=== PATIENT | female | born 1975 | race Two or more races ===

== ENCOUNTER 2024-01-12 16:19 | Emergency (ER) | payer OTHER ==
[~2024-01-12] VITALS: Ht 165.1 cm; Wt 127.2 kg
[2024-01-12 16:40] VITALS: PULSE 84; PULSE 86; RESP 16; RESP 25; O2SAT 97
[2024-01-12 18:19] LABS: Basophils # (auto) 0.1 10 ^3/uL (0-0.2); Basophils % (auto) 1.2 % (0.0-2.0); Eosinophils # (auto) 0.5 10 ^3/uL (0-0.8); Eosinophils % (auto) 5.1 % (0.0-7.0); Hematocrit 28.5 % (36.0-46.0); Hemoglobin 9.7 g/dL (12.2-16.2); Lymphocytes # (auto) 1.5 10 ^3/uL (0.4-5.4); Lymphocytes % (auto) 16.7 % (10.0-50.0); Mean Corpuscular Hemoglobin 31.3 pg (28.0-32.0); Mean Corpuscular Hgb Conc. 33.9 g/dL (32.0-36.0); Mean Corpuscular Volume 92.5 fL (80.0-100.0); Monocytes # (auto) 0.4 10 ^3/uL (0-1.3); Neutrophils # (auto) 6.4 10 ^3/uL (1.6-8.6); Nucleated Red Blood Cells % 0.1 %; Platelet Count (auto) 393 10^3/uL (140-450); Red Blood Cells 3.08 10^6/uL (4.0-5.20); Red Cell Distribution Width 14.7 % (11.8-14.3); White Blood Cell 8.9 10^3/uL (4.4-10.8)
[2024-01-12 18:36] LABS: Alanine Aminotransferase 14 U/L (7-40); Albumin 3.8 g/dL (3.2-4.8); Alkaline Phosphatase 70 U/L (46-116); Anion Gap 3 (5-15); Aspartate Aminotransferase 15 U/L (13-40); BUN/Creatinine Ratio 21.6 (10.0-20.0); Bilirubin, Total 0.2 mg/dL (0.2-1.0); Blood Urea Nitrogen 27 mg/dL (9-23); CRP High Sensitivity 0.67 mg/dL (<1.0); Calcium 9.6 mg/dL (8.7-10.4); Carbon Dioxide 32 mmol/L (20-30); Chloride 107 mmol/L (98-107); Glucose 157 mg/dL (74-106); Potassium 4.8 mmol/L (3.5-5.1); Sodium 142 mmol/L (136-145)
[2024-01-12] MEDS: MORPHINE SULFATE 4 MG/ML SYR/VIAL IV ONE (18:59)
[2024-01-12] MEDS: ONDANSETRON HCL 4 MG/2 ML VIAL IV ONE ×2 (18:59→23:47)
[2024-01-12 19:00] LABS: Erythrocyte Sedimentation Rate 111 mm/hr (0-20)
[2024-01-12] MEDS: SODIUM CHLORIDE 0.9% 1,000 ML IV ONE (19:06)
[2024-01-12] MEDS: HYDROmorphone HCL 2 MG/ML VL/or syr IV ONE ×2 (19:08→23:50)
[2024-01-12] MEDS ORDERED: IOHEXOL 300 MG/ML 100ML BOTTLE IJ ONE (19:13)
[2024-01-12 19:30] VITALS: PULSE 78; RESP 12; O2SAT 96
[2024-01-12 23:24] LABS: Urine Bacteria None Seen /hpf (None Seen)
[2024-01-12 23:37] LABS: Urine Blood Negative /uL (Negative); Urine Clarity Clear (Clear); Urine Color Light-Yellow (Yellow); Urine Protein, UAD 2+ (Negative); Urine Specific Gravity 1.017 (1.001-1.035); Urine Urobilinogen Normal (Negative); Urine WBC 3 /hpf (0 - 5); Urine pH 6.5 (5.0-9.0)
[2024-01-13] MEDS ORDERED: HYDR-4798 PO (01:16)
[2024-01-13 03:00] VITALS: TEMP 98.1
[2024-01-13] MEDS: ONDANSETRON HCL 4 MG/2 ML VIAL IV ONE (05:45)
[2024-01-13] MEDS: HYDROmorphone HCL 2 MG/ML VL/or syr IV ONE (05:45)
[2024-01-13 06:00] VITALS: O2SAT 98
[2024-01-13 06:15] VITALS: BP 118/70; PULSE 82; RESP 14
== END 2024-01-13 08:25 | disposition home or self-care (01) ==
LOC: EDBD 16:19 → ER 16:19
DX: R53.1 Weakness (principal); R06.02 Shortness of breath; I11.0 Hypertensive heart disease with heart failure; I50.9 Heart failure, unspecified; E78.5 Hyperlipidemia, unspecified; Z85.9 Personal history of malignant neoplasm, unspecified; Z98.890 Other specified postprocedural states; Z88.8 Allergy status to other drugs, medicaments and biological substances
CPT/HCPCS: 36415; 71045; 74177; 80053; 81001; 83605; 83880; 84484; 85025; 85652; 86141; 96361; 96374; 96375; 96376; 99285; J1170; J2270; J2405; J7030; Q9967

== ENCOUNTER 2024-02-22 16:24 | Emergency (ER) | payer OTHER ==
[~2024-02-22] VITALS: Ht 157.5 cm; Wt 90.9 kg
[~2024-02-22 16:24] MED LIST: HYDR-4798 PO
[2024-02-22 16:46] VITALS: PULSE 90; RESP 14; O2SAT 98
[2024-02-22] MEDS: InsuLIN REG 1unit/0.01ml Soln (100units/ml) IV ONE (16:57)
[2024-02-22 17:03] LABS: Base Excess -4.6 mmol/L (-2.0-3.0)
[2024-02-22 17:24] LABS: Basophils # (auto) 0.1 10 ^3/uL (0-0.2); Basophils % (auto) 1.3 % (0.0-2.0); Eosinophils # (auto) 0.3 10 ^3/uL (0-0.8); Eosinophils % (auto) 4.9 % (0.0-7.0); Hematocrit 27.6 % (36.0-46.0); Hemoglobin 9.3 g/dL (12.2-16.2); Lymphocytes # (auto) 1.2 10 ^3/uL (0.4-5.4); Lymphocytes % (auto) 17.6 % (10.0-50.0); Mean Corpuscular Hemoglobin 30.8 pg (28.0-32.0); Mean Corpuscular Hgb Conc. 33.7 g/dL (32.0-36.0); Mean Corpuscular Volume 91.5 fL (80.0-100.0); Monocytes # (auto) 0.6 10 ^3/uL (0-1.3); Monocytes % (auto) 8.9 % (0.0-12.0); Neutrophils # (auto) 4.4 10 ^3/uL (1.6-8.6); Neutrophils % (auto) 67.3 % (37.0-80.0); Nucleated Red Blood Cells % 0.1 %; Platelet Count (auto) 273 10^3/uL (140-450); Red Blood Cells 3.01 10^6/uL (4.0-5.20); Red Cell Distribution Width 14.2 % (11.8-14.3); White Blood Cell 6.6 10^3/uL (4.4-10.8)
[2024-02-22 17:45] LABS: Alanine Aminotransferase 13 U/L (7-40); Albumin 3.8 g/dL (3.2-4.8); Alkaline Phosphatase 97 U/L (46-116); Anion Gap 8 (5-15); Aspartate Aminotransferase 8 U/L (13-40); Blood Urea Nitrogen 50 mg/dL (9-23); Calcium 9.3 mg/dL (8.7-10.4); Carbon Dioxide 25 mmol/L (20-31); Chloride 97 mmol/L (98-107); Potassium 4.7 mmol/L (3.5-5.1); Sodium 130 mmol/L (136-145)
[2024-02-22 17:46] LABS: Bilirubin, Total 0.3 mg/dL (0.2-1.0); Total Protein 6.8 g/dL (5.7-8.2)
[2024-02-22 18:36] LABS: Glucose 602 mg/dL (74-106)
[2024-02-22 19:50] VITALS: O2SAT 98
[2024-02-22] MEDS ORDERED: ACCU-CHEK COMFORT CURVE STRIP VI ONE (20:45)
[2024-02-22] MEDS ORDERED: DEXTROSE (50%) 50ML SYRG IV ONE (20:45)
[2024-02-22] MEDS ORDERED: InsuLIN REG 1unit/0.01ml Soln (100units/ml) SC ONE (20:45)
[2024-02-22] MEDS ORDERED: DEXTROSE (50%) 50ML SYRG IV PRN (20:45)
[2024-02-22] MEDS: InsuLIN REG 1unit/0.01ml Soln (100units/ml) SC SCH (21:37)
[2024-02-22] MEDS: ACCU-CHEK COMFORT CURVE STRIP VI SCH (21:39)
[2024-02-22] MEDS: FUROSEMIDE 40 MG/4 ML VIAL IV ONE (22:39)
[2024-02-22] MEDS: OXYCODONE W/ ACETAMINOPHEN 5/325MG TABLET PO ONE (22:40)
[2024-02-22] MEDS: SODIUM CHLORIDE 0.9% 1,000 ML IV ONE (23:30)
[2024-02-22] MEDS: ALBUTEROL SULF 2.5 MG/0.5ML(0.5%) NEB SOLN NEB ONE (23:46)
[2024-02-23 00:07] LABS: Chloride 99 mmol/L (98-107); Potassium 4.1 mmol/L (3.5-5.1); Sodium 132 mmol/L (136-145)
[2024-02-23 00:08] LABS: Anion Gap 11 (5-15); Calcium 9.3 mg/dL (8.7-10.4); Carbon Dioxide 22 mmol/L (20-31)
[2024-02-23 00:13] LABS: BUN/Creatinine Ratio 19.6 (10.0-20.0)
[2024-02-23 00:15] LABS: Blood Urea Nitrogen 40 mg/dL (9-23)
[2024-02-23 00:17] LABS: Glucose 433 mg/dL (74-106)
[2024-02-23] MEDS: InsuLIN REG 1unit/0.01ml Soln (100units/ml) SC SCH (00:25)
[2024-02-23] MEDS: ACCU-CHEK COMFORT CURVE STRIP VI SCH (00:28)
[2024-02-23 00:46] VITALS: BP 136/58; PULSE 89; RESP 20; TEMP 98.1; O2SAT 96
== END 2024-02-23 01:14 | disposition short-term general hospital (02) ==
LOC: EDSEX 16:24 → EDBD 16:24 → ER 16:26
DX: E11.65 Type 2 diabetes mellitus with hyperglycemia (principal); R10.2 Pelvic and perineal pain; R07.89 Other chest pain; I13.0 Hypertensive heart and chronic kidney disease with heart failure and stage 1 through stage 4 chronic kidney disease, or unspecified chronic kidney disease; E11.22 Type 2 diabetes mellitus with diabetic chronic kidney disease; N18.9 Chronic kidney disease, unspecified; I50.89 Other heart failure; E78.5 Hyperlipidemia, unspecified; I82.403 Acute embolism and thrombosis of unspecified deep veins of lower extremity, bilateral; Z79.4 Long term (current) use of insulin; Z85.42 Personal history of malignant neoplasm of other parts of uterus; Z87.891 Personal history of nicotine dependence; Z88.5 Allergy status to narcotic agent; Z90.710 Acquired absence of both cervix and uterus; Z91.148 Patient's other noncompliance with medication regimen for other reason; Z95.1 Presence of aortocoronary bypass graft
CPT/HCPCS: 36415; 36600; 71045; 80048; 80053; 82010; 82805; 83880; 84484; 84702; 85025; 93005; 93970; 94640; 96361; 96372; 96374; 96375; 99291; J1815; J1940; J7030

== ENCOUNTER 2024-06-14 04:26 | Inpatient (IN) | payer OTHER ==
[2024-06-14] VITALS (38 sets, daily range): BP systolic 90–154; BP diastolic 38–77; PULSE 75–99; RESP 11–25; TEMP 96.3–99.5; O2SAT 94–100
[~2024-06-14] VITALS: Ht 162.6 cm; Wt 118.0 kg
--- NOTE | 2024-06-14 04:39 | ED.PDOC ---
History of Present Illness HPI Comments 49 year old female brought in by EMS presents to the ED with a chief complaint of generalized weakness onset yesterday. Per EMS, patient's family member was woken up by the patient's scream, was found sitting on the ground. Patient states she tried to go the to the restroom when she began experiencing dizziness and generalized weakness, was not able to hold herself up and sat on the floor. Upon ED arrival patient states she is not able to feel her feet. Upon ED patient was hypotensive 170, HR 90, O2 sat 98% on RA. PMHx CHF, MD, CVA, HTN, DM, cancer, HLD. Denies head injury, LOC, chest pain, shortness of breath, abdominal pain, dysuria, hematuria. No other symptoms or modifying factors present at this time. Time Seen by MD: 04:28 Primary Care Provider: UNKNOWN NAME Reviewed Notes: Medications, Allergies Allergies: Coded Allergies: Diphenhydramine (Verified Allergy, Unknown, 01/12/24) Morphine (Verified Allergy, Unknown, 01/12/24) Home Meds Active Scripts Hydrocodone-Acetaminophen (Hydrocodone Bitartrate/AC 10-325 mg) 1 Tab Tab, 1 TAB PO Q6HPRN PRN, #20 TAB Prov:LANECRISTI CARDONA PAC 01/13/24 Information Source: Patient, Emergency Med Personnel Mode of Arrival: EMS Severity: Moderate Timing: Days Duration: Since onset Prehospital treatment: None Past Medical History PAST MEDICAL HISTORY: Cancer, CHF, CVA, DM, High Lipids, HTN, MD, Thyroid Surgical History: CABG, Hysterectomy [employer] History: No Pertinent [employer] History Family History Family History: Reviewed,noncontributory to illness, No family hx of Cancer, No family hx of DM, No family hx of Heart leida, No family hx of HTN, No family hx ofKidney leida, No family hx of Liver leida, No family hx of Lung leida, No family hx of Stroke Social History Smoker: Non-Smoker Alcohol: Denies ETOH Use Drugs: Denies Drug Use Lives In: Home Constitutional: reports: weakness; denies: chills, diaphoresis, fatigue, fever, malaise, sweats, others EENTM: denies: blurred vision, double vision, ear bleeding, ear discharge, ear drainage, ear pain, ear ringing, eye pain, eye redness, hearing loss, mouth pain, mouth swelling, nasal discharge, nose bleeding, nose congestion, nose pain, photophobia, tearing, throat pain, throat swelling, voice changes, others Respiratory: denies: cough, hemoptysis, orthopnea, SOB at rest, shortness of breath, SOB with excertion, stridor, wheezing, others Cardiovascular: denies: chest pain, dizzy spells, diaphoresis, Dyspnea on exertion, edema, irregular heart beat, left arm pain, lightheadedness, palpitations, PND, syncope, others Gastrointestinal: reports: diarrhea, nausea, vomiting; denies: abdomen dist ended, abdominal pain, blood streaked bowels, constipated, dysphagia, difficulty swallowing, hematemesis, melena, poor appetite, poor fluid intake, rectal bleeding, rectal pain, others Genitourinary: denies: abnormal vagina bleeding, burning, dyspareunia, dysuria, flank pain, frequency, hematuria, incontinence, pain, , vagina discharge, urgency, others Neurological: reports: dizziness, weakness; denies: fainting, headache, left sided numbness, left sided weakness, numbness, paresthesia, pre-existing deficit, right sided numbness, right sided weakness, seizure, speech problems, tingling, tremors, others Musculoskeletal: denies: back pain, gout, joint pain, joint swelling, muscle pain, muscle stiffness, neck pain, others Integumetry: denies: bruises, change in color, change in hair/nails, dryness, laceration, lesions, lumps, rash, wounds, others Allergic/Immunocompromised: denies: Difficulty Healing, Frequent Infections, Hives, Itching, others Hematologic/Lymphatic: denies: anemia, blood clots, easy bleeding, easy bruising, swollen glands, others Endocrine: denies: excessive hunger, excessive sweating, excessive thirst, excessive urination, flushing, intolerance to cold, intolerance to heat, unexplained weight gain, unexplained weight loss, others Psychiatric: denies: anxiety, bipolar disorder, depression, hopeless, panic disorder, schizophrenia, sleepless, suicidal, others All Other Systems: Reviewed and Negative Physical Exam General Appearance: Moderate Distress, Other (chronically ill appearing ) HEENT: Normal ENT Inspection, Pharynx Normal, TMs Normal Neck: Full Range of Motion, Non-Tender, Normal, Normal Inspection Respiratory: Chest Non-Tender, Lungs Clear, No Accessory Muscle Use, No Respiratory Distress, Normal Breath Sounds Cardiovascular: No Edema, No JVD, No Murmur, No Gallop, Normal Peripheral Pulses, Regular Rate/Rhythm Breast Exam: Deferred Gastrointestinal: No Organomegaly, Non Tender, No Pulsatile Mass, Normal Bowel Sounds, Soft Genitalia: Deferred Pelvic: Deferred Rectal: Deferred Extremities: No calf tenderness, Normal capillary refill, Normal inspection, Normal range of motion, Non-tender, No pedal edema Musculoskeletal : Apperance: Normal Neurologic: Alert, java application developer II-XII nml as Tested, No Motor Deficits, Normal Affect, Normal Mood, No Sensory Deficits Cerebellar Function: Normal Reflexes: Normal Skin: Dry, Normal Color, Warm Lymphatic: No Adenopathy Was a procedure done? Was a procedure done?: Yes Sedation Sedation?: No Sedation total time: Patient is currently sedated Central Line Recorder of insertion practice: Pre Parole Counseling Aide Occupation of gore inserter: Attending Physician Indication: Inability to obtain IV Room prepared for procedure: Yes Pre Parole Counseling Aide performed hand hygien: Yes Maximal sterile barrier precau: Mask/Eye shield, Sterile gown, Cap, Sterlie gloves, Large sterlie drape Skin Preparation: Chlorhexidine gluconate, Providine iodine Skin preparation completely dr: Yes Insertion site: Right, Femoral Central line catheter type: [id number]-[id number]-yel dialysis Number of lumens: 3 Post Assessment: Proper placement Informed consent obtained: Yes Risks/benefits/alt described: Yes Intubation Indication: Airway Protection Prep: Preoxygenation Pretreated with: Other (Etomidate , Rocuromium ) Intubation size: cm (24) Informed consent obtained: Yes Risks/benefits/alt described: Yes Differential Dx Considerations may include: CVA, electrolyte abnormality, infectious etiology, metabolic disarray, hydration, sepsis X-Ray, Labs, Meds, VS Vital Signs Date Time Temp Pulse Resp B/P (MAP) Pulse Ox O2 Delivery O2 Flow Rate FiO2 06/14/24 04:40 86 06/14/24 04:29 85 06/14/24 04:26 98.1 80 18 98 Lab Test 06/14/24 04:59 Range/Units White Blood Count 13.1 H 4.4-10.8 10^3/uL Red Blood Count 3.56 L 4.0-5.20 10^6/uL Hemoglobin 10.6 L 12.2-16.2 g/dL Hematocrit 32.2 L 36.0-46.0 % Mean Corpuscular Volume 90.3 80.0-100.0 fL Mean Corpuscular Hemoglobin 29.8 28.0-32.0 pg Mean Corpuscular Hemoglobin Concent 33.0 32.0-36.0 g/dL Red Cell Distribution Width 13.2 11.8-14.3 % Platelet Count 361 140-450 10^3/uL Mean Platelet Volume 8.0 6.9-10.8 fL Neutrophils (%) (Auto) 75.6 37.0-80.0 % Lymphocytes (%) (Auto) 14.4 10.0-50.0 % Monocytes (%) (Auto) 7.0 0.0-12.0 % Eosinophils (%) (Auto) 2.1 0.0-7.0 % Basophils (%) (Auto) 0.9 0.0-2.0 % Neutrophils # (Auto) 9.9 H 1.6-8.6 10 ^3/uL Lymphocytes # (Auto) 1.9 0.4-5.4 10 ^3/uL Monocytes # (Auto) 0.9 0-1.3 10 ^3/uL Eosinophils # (Auto) 0.3 0-0.8 10 ^3/uL Basophils # (Auto) 0.1 0-0.2 10 ^3/uL Nucleated Red Blood Cells 0.1 % Sodium Level 134 L 136-145 mmol/L Potassium Level 3.6 3.5-5.1 mmol/L Chloride Level 98 98-107 mmol/L Carbon Dioxide Level 24 20-31 mmol/L Anion Gap 12 5-15 Blood Urea Nitrogen 24 H 9-23 mg/dL Creatinine 2.46 H 0.550-1.02 mg/dL Glomerular Filtration Rate Calc 23 >90 mL/min BUN/Creatinine Ratio 9.8 L 10.0-20.0 Serum Glucose 189 H 74-106 mg/dL Lactic Acid Level 4.1 *H 0.4-2.0 mmol/L Calcium Level 9.4 8.7-10.4 mg/dL Total Bilirubin < 0.2 L 0.2-1.0 mg/dL Aspartate Amino Transferase (AST) 13 13-40 U/L Alanine Aminotransferase (ALT) < 9 7-40 U/L Alkaline Phosphatase 97 46-116 U/L Troponin I High Sensitivity 7 </=34 ng/L B-Type Natriuretic Peptide 47.28 0-100 pg/mL Total Protein 7.0 5.7-8.2 g/dL Albumin 3.8 3.2-4.8 g/dL Lipase 124 H 12-53 U/L Plasma/Serum Blood Alcohol < 3.0 <10 mg/dL Current Medications Medications (Trade) Dose Ordered Sig/Yanna Route Start Time Stop Time Status Last Admin Sodium Chloride 1,000 ml @ 1,000 mls/hr Q1H ONCE IV 06/14/24 04:45 06/14/24 05:44 DC 06/14/24 05:14 Time of 1ST Reevaluation: 04:58 Reevaluation 1ST: Unchanged Patient Education/Counseling: Diagnosis, Treatment, Prognosis Family Education/Counseling: No Family Present Departure 1 Departure Time of Disposition: 05:58 (Patient presented altered and pain and hypotensive. Patient was empirically covered with IV fluids antibiotics was started on pressors. Patient's mental status began to decline patient was intubated emergently in central line placed. We will admit patient to the ICU for further workup and management.) Impression: Primary Impression: Metabolic encephalopathy Additional Impressions: Sepsis with metabolic encephalopathy Hypotension Qualified Codes: I95.9 - Hypotension, unspecified Disposition: ADMITTED INPATIENT Admit to: ICU Condition: Critical Critical Care Note Critical Care Time?: Yes Critical care comment: Metabolic encephalopathy Authorized and Performed by: Carlos Vicente MD Total critical care time: Approximately 39 minutes Due to a high probability of clinically significant, life threatening deterioration, the patient required my highest level of preparedness to intervene emergently and I personally spent this critical care time directly and personally managing the patient. This critical care time included obtaining a history; examining the patient; pulse oximetry; ordering and review of studies; arranging urgent treatment with development of a management plan; evaluation of patient's response to treatment; frequent reassessment; and, discussions with other providers. This critical care time was performed to assess and manage the high probability of imminent, life-threatening deterioration that could result in multi-organ failure. It was exclusive of separately billable procedures and treating other patients and teaching time. Please see my other sections and the rest of the note for further information on patient assessment and treatment. Stability Stability form required: No I personally scribed for CARLOS VICENTE MD ([email or web address]) on 06/14/24 at 04:39. Electronically submitted by Miriam Meade ([email or web address]). I personally scribed for CARLOS VICENTE MD ([email or web address]) on 06/14/24 at 04:41. Electronically submitted by Miriam Meade ([email or web address]). I personally scribed for CARLOS VICENTE MD ([email or web address]) on 06/14/24 at 05:44. Electronically submitted by Miriam Meade ([email or web address]). I personally scribed for CARLOS VICENTE MD ([email or web address]) on 06/14/24 at 05:46. Electronically submitted by Miriam Meade ([email or web address]). CARLOS VICENTE MD Jun 14, 2024 04:39
[2024-06-14] MEDS: ONDANSETRON HCL 4 MG/2 ML VIAL IV ONE (04:45)
[2024-06-14] MEDS: SODIUM CHLORIDE 0.9% 1,000 ML IV ONE ×3 (05:14→11:55)
[2024-06-14 05:17] LABS: Basophils # (auto) 0.1 10 ^3/uL (0-0.2); Basophils % (auto) 0.9 % (0.0-2.0); Eosinophils # (auto) 0.3 10 ^3/uL (0-0.8); Eosinophils % (auto) 2.1 % (0.0-7.0); Hematocrit 32.2 % (36.0-46.0); Hemoglobin 10.6 g/dL (12.2-16.2); Lymphocytes # (auto) 1.9 10 ^3/uL (0.4-5.4); Lymphocytes % (auto) 14.4 % (10.0-50.0); Mean Corpuscular Hemoglobin 29.8 pg (28.0-32.0); Mean Corpuscular Volume 90.3 fL (80.0-100.0); Monocytes # (auto) 0.9 10 ^3/uL (0-1.3); Neutrophils # (auto) 9.9 10 ^3/uL (1.6-8.6); Neutrophils % (auto) 75.6 % (37.0-80.0); Nucleated Red Blood Cells % 0.1 %; Platelet Count (auto) 361 10^3/uL (140-450); Red Blood Cells 3.56 10^6/uL (4.0-5.20); Red Cell Distribution Width 13.2 % (11.8-14.3); White Blood Cell 13.1 10^3/uL (4.4-10.8)
[2024-06-14] MEDS: NOREPINEPHRINE 8 MG/250ML KIT 250 ML IV ONE (05:28)
[2024-06-14] MEDS: NOREPINEPHRINE 8 MG/250ML KIT 250 ML IV SCH ×2 (05:30→06:30)
[2024-06-14 05:33] LABS: Albumin 3.8 g/dL (3.2-4.8); Alkaline Phosphatase 97 U/L (46-116); Anion Gap 12 (5-15); BUN/Creatinine Ratio 9.8 (10.0-20.0); Calcium 9.4 mg/dL (8.7-10.4); Carbon Dioxide 24 mmol/L (20-31); Potassium 3.6 mmol/L (3.5-5.1)
[2024-06-14] MEDS: ROCURONIUM 10MG/ML 10ML VIAL IV ONE ×2 (05:34→05:38)
[2024-06-14] MEDS: ETOMIDATE (2MG/ML) 20ML VIAL IV ONE ×2 (05:34→05:37)
[2024-06-14] MEDS: PROPOFOL 100 ML IV ONE (05:34)
[2024-06-14 05:37] LABS: Alanine Aminotransferase < 9 U/L (7-40); Aspartate Aminotransferase 13 U/L (13-40); Bilirubin, Total < 0.2 mg/dL (0.2-1.0); Blood Urea Nitrogen 24 mg/dL (9-23); Chloride 98 mmol/L (98-107); Glucose 189 mg/dL (74-106); Lactic Acid w/Reflex 4.1 mmol/L (0.4-2.0); Lipase 124 U/L (12-53); Sodium 134 mmol/L (136-145)
[2024-06-14] MEDS: PROPOFOL 100 ML IV SCH (05:40)
[2024-06-14] MEDS ORDERED: PROPOFOL 100 ML IV SCH (05:45)
[2024-06-14 05:56] LABS: Blood Alcohol < 3.0 mg/dL (<10)
[2024-06-14 06:06] LABS: Urine Bacteria None Seen /hpf (None Seen)
[2024-06-14 06:14] LABS: Urine Blood 2+ /uL (Negative); Urine Clarity Ex.Turbid (Clear); Urine Color Colorless (Yellow); Urine Protein, UAD 2+ (Negative); Urine Specific Gravity 1.007 (1.001-1.035); Urine Squamous Epithelial Cell None Seen /hpf (<5); Urine Urobilinogen Normal (Negative); Urine WBC 1589 /HPF (0-5); Urine WBC Clumps PRESENT /hpf (None Seen)
--- NOTE | 2024-06-14 06:15 | DVH ---
EXAM: XR Chest, 1 View CLINICAL INDICATION: POST INTUBATION TECHNIQUE: Frontal view of the chest. COMPARISON: XY CHEST PORTABLE on DOS: 02/22/24, XY CHEST XRAY 1 VIEW on DOS: 01/12/24 FINDINGS: LUNGS AND PLEURAL SPACES: See below. HEART: Cardiomegaly with pulmonary congestion and edema. Superimposed pneumonia cannot be excluded. MEDIASTINUM: Unremarkable. Normal mediastinal contour. BONES/JOINTS: Unremarkable. No acute fracture. TUBES, LINES AND DEVICES: ETT placement with the distal tip 0.7 cm from the karen. Retraction by 1-2 cm may be beneficial. Right internal jugular central venous catheter tip in the superior vena ca va. Right-sided Mediport with the distal tip in the SVC. No pneumothorax. Enteric tube tip in the s tomach. OTHER FINDINGS: . . IMPRESSION: 1. ETT placement with the distal tip 0.7 cm from the karen. Retraction by 1-2 cm may be beneficial . 2. Cardiomegaly with pulmonary congestion and edema. Superimposed pneumonia cannot be excluded.
[2024-06-14 06:25] LABS: Amphetamine Screen, Urine Neg (NEGATIVE); Barbiturate Scree,Urine Neg (NEGATIVE); Benzodiazephine Screen, Urine Neg (NEGATIVE); Cannabinoid Screen, Urine Neg (NEGATIVE); Cocaine Screen, Urine Neg (NEGATIVE); Opiate Scree,Urine Neg (NEGATIVE)
[2024-06-14 06:26] LABS: Phencyclidine Screen, Urine Neg (NEGATIVE)
[2024-06-14] MEDS: fentaNYL Drip 2500mCg/250mlNS 250 ML IV SCH (06:43)
[2024-06-14] MEDS: VANCOMYCIN 1GM/250ML KIT 200 ML IV ONE (06:47)
[2024-06-14] MEDS: CEFEPIME 2GM/50ML NS 50 ML IV ONE (08:37)
[2024-06-14 09:23] LABS: Base Excess -3.2 mmol/L (-2.0-3.0)
--- NOTE | 2024-06-14 10:46 | DVH ---
EXAM: CT HEAD WITHOUT CONTRAST HISTORY: fall, hypotensive, altered COMPARISON: None TECHNIQUE: Axial images of the head were obtained and reformatted in coronal and sagittal planes. All CT scans at this medical facility are performed using dose modulation techniques as appropriate t o a performed exam including the following: Automated exposure control was utilized; adjustment of th e MA and/or KV according to patient size; and use of iterative reconstruction technique. CT Dose: CTDI volume is 67 mGy. Dose-length product is 1321 mGy*cm FINDINGS: There is no evidence of acute intracranial hemorrhage, mass, mass effect midline shift. There is no h ydrocephalus or extra-axial fluid collection. Hastings-white matter differentiation is maintained. The visualized paranasal sinuses and mastoid air cells are clear. The calvarium is intact. IMPRESSION: 1. No acute intracranial process. HS:Y
--- NOTE | 2024-06-14 10:52 | DVH ---
EXAM: CT CHST AB PEL WO CON-NO IV/ORAL History: pain, altered, intubated Comparison Study: None available at time of dictation. TECHNIQUE: Multidetector CT of the chest, abdomen and pelvis was performed from lower neck to pubic s ymphysis without the use of intravenous contrast. Axial, coronal and sagittal multiplanar reformats w ere performed by the technologist on a separate workstation. Radiation Dose Information: CT Dose: CTDI volume is 29.6 mGy. Dose-length product is 2055. mGy*cm FINDINGS: Support lines and tubes: Right central venous catheter terminates in the superior vena cava. The endo tracheal tube terminates above the karen. The enteric tube terminates in the stomach. Lower neck: Normal thyroid. Lungs: Bilateral lower lobe consolidation with air bronchograms. No pulmonary nodule or mass. Pleura: No pleural effusion or significant pneumothorax. Central airways: Patent. Heart/Vascular Structures: Normal heart size. Postsurgical changes in the heart. No pericardial effu dwayne. Normal caliber thoracic aorta and main pulmonary artery. Lymph Nodes: No adenopathy. Liver: The liver is normal in size. No intrahepatic biliary ductal dilatation. Gallbladder and Biliary Tree: Cholecystectomy. No dilatation of the common bile duct. Spleen: Unremarkable. Pancreas: Unremarkable. Adrenal Glands: Unremarkable. Kidneys: No renal calculi or hydronephrosis. Bladder: Ewing catheter in the decompressed urinary bladder.. Stomach and bowel: Stomach is unremarkable. No bowel wall thickening or dilatation. The appendix is v isualized and is normal. Peritoneum: No ascites or pneumoperitoneum. Lymphadenopathy: No enlarged lymph nodes. Vasculature: The visualized abdominal aorta is normal in size and caliber. Evaluation of the vascular structures is limited due to lack of intravenous contrast. Pelvic Organs: Unremarkable. Musculoskeletal: No acute osseous abnormality. Status post CABG. Soft tissues: Soft tissue stranding in the midline abdominal wall. IMPRESSION: 1. No acute traumatic injury in the chest, abdomen or pelvis. 2. Bilateral lower lobe consolidations which may reflect aspiration in the appropriate clinical setti ng. All CT scans at this medical facility are performed using dose modulation techniques as appropriate t o a performed exam including the following: Automated exposure control was utilized; adjustment of th e MA and/or KV according to patient size; and use of iterative reconstruction technique.
[2024-06-14] MEDS ORDERED: HYDROmorphone HCL 2 MG/ML VL/or syr IV PRN (11:15)
[2024-06-14] MEDS ORDERED: HYDROcodone-ACET 5/325MG TAB PO PRN (11:15)
[2024-06-14] MEDS ORDERED: DOCUSATE SOD 100 MG CAP PO PRN (11:15)
[2024-06-14] MEDS ORDERED: ONDANSETRON HCL 4 MG/2 ML VIAL IV PRN (11:15)
--- NOTE | 2024-06-14 11:24 | DVHHP2 ---
Admitting Diagnosis: Generalized weakness History of Present Illness 49 year old female brought in by EMS presents to the ED with a chief complaint of generalized weakness onset yesterday. Per EMS, patient's family member was woken up by the patient's scream, was found sitting on the ground. Patient states she tried to go the to the restroom when she began experiencing dizziness and generalized weakness, was not able to hold herself up and sat on the floor. Upon ED arrival patient states she is not able to feel her feet. Upon ED patient was hypotensive 170, HR 90, O2 sat 98% on RA. PMHx CHF, AK, CVA, HTN, DM, cancer, HLD. Denies head injury, LOC, chest pain, shortness of breath, abdominal pain, dysuria, hematuria. No other symptoms or modifying factors present at this time. PAST MEDICAL HISTORY: Cancer, CHF, CVA, DM, High Lipids, HTN, AK, Thyroid Surgical History: CABG, Hysterectomy DISPATCH COORDINATOR History: No Pertinent DISPATCH COORDINATOR History Family History: Reviewed,noncontributory to illness, No family hx of Cancer, No family hx of DM, No family hx of Heart leida, No family hx of HTN, No family hx ofKidney leida, No family hx of Liver leida, No family hx of Lung leida, No family hx of Stroke Social History Smoker: Non-Smoker Alcohol: Denies ETOH Use Drugs: Denies Drug Use Lives In: Home Allergies: Coded Allergies: Diphenhydramine (Verified Allergy, Unknown, 01/12/24) Morphine (Verified Allergy, Unknown, 01/12/24) Home Meds Active Scripts Hydrocodone-Acetaminophen (Hydrocodone Bitartrate/AC 10-325 mg) 1 Tab Tab, 1 TAB PO Q6HPRN PRN, #20 TAB Prov:CRISTI LANE PAC 01/13/24 Current Medications Current Medications Medications (Trade) Dose Ordered Sig/Yanna Route PRN Reason Start Time Stop Time Status Last Admin Propofol 100 ml @ 3.54 mls/hr Q24H IV 06/14/24 05:45 06/14/24 06:18 DC Norepinephrine Bitartrate 250 ml @ 3.75 mls/hr Q24H IV 06/14/24 06:15 06/14/24 05:30 Propofol 100 ml @ 3.54 mls/hr Q24H IV 06/14/24 06:15 06/14/24 08:30 Fentanyl Citrate 250 ml @ 2.5 mls/hr Q24H IV 06/14/24 06:15 06/14/24 06:43 Norepinephrine Bitartrate 250 ml @ 3.75 mls/hr Q24H IV 06/14/24 06:30 Docusate Sodium (Colace Capsule) 100 mg BIDPRN PRN PO FOR CONSTIPATION 06/14/24 11:15 UNV Acetaminophen (Tylenol Tablet) 650 mg Q6HP PRN PO PAIN SCALE 1-3 OR TEMP>100.4 06/14/24 11:15 UNV Acetaminophen/ Hydrocodone Bitart ([place] 5/325MG Tab) 1 tab Q4HP PRN PO MODERATE PAIN (4-6 PAIN SCALE) 06/14/24 11:15 UNV Hydromorphone HCl (Dilaudid Injection) 0.5 mg Q4HP PRN IV SEVERE PAIN (7-10 PAIN SCALE) 06/14/24 11:15 UNV Ondansetron HCl (Zofran) 4 mg Q4HP PRN IV NAUSEA / VOMITING 06/14/24 11:15 UNV Midazolam HCl 50 ml @ 1 mls/hr Q24H IV 06/14/24 11:30 UNV Cefepime HCl 50 ml @ 12.5 mls/hr BID IV 06/14/24 22:00 UNV Vancomycin HCl 0 ml @ 0 mls/hr UD IV 06/14/24 11:30 UNV Vital Signs Vital Signs Date Time Temp Pulse Resp B/P (MAP) Pulse Ox O2 Delivery O2 Flow Rate FiO2 06/14/24 11:09 96.3 84 18 113/55 100 50 96.3 06/14/24 07:30 Mechanical Ventilator+ 06/14/24 05:30 0 Physical Exam 49 years old woman, morbidly obese, lying in bed. Intubated and sedated HEENT-atraumatic normocephalic Heart-regular rate and rhythm Lungs mild crackles in lower lung [place] Abdomen soft nontender nondistended Musculoskeletal-pedal edema, no cyanosis Neuro-intubated and sedated Results Labs Test 06/14/24 10:06 06/14/24 08:54 06/14/24 07:51 06/14/24 06:49 Range/Units POC Glucose 242 H 70-106 mg/dl Blood Gas Specimen Type Arterial Blood Gas Sample Site Left radial Blood Gas Patient Temperature 37.0 Arterial Blood Date Drawn [id number] Arterial Blood pH 7.346 L 7.350-7.450 Arterial Blood Partial Pressure CO2 41.6 32.0-45.0 mmHg Arterial Blood Partial Pressure O2 434.7 *H 83.0-108.0 mmHg Arterial Blood HCO3 22.2 21.0-28.0 mmol/L Arterial Blood Oxygen Saturation 99.5 H 94.0-98.0 % Arterial Blood Base Excess -3.2 L -2.0-3.0 mmol/L Arterial Blood Oxyhemoglobin 98.6 H 94.0-98.0 % Arterial Blood Carboxyhemoglobin 0.3 L 0.5-1.5 % Arterial Blood Methemoglobin 0.6 0.0-1.5 % Stephane Test Modified Blood Gas Total Hemoglobin 10.70 L 12.0-16.0 g/dL Blood Gas Set Respiration Rate 18.0 Blood Gas Modality Vent - ac FiO2 % 100.0 Blood Gas Tidal Volume 500.0 Blood Gas PEEP or CPAP 5.0 Blood Gas Critical Value Read Back Yes Blood Gas Notified Whom Dr.seraj j Blood Gas Notified Time [id number] Blood Gas Notified By Roller Staker cheri jordan Troponin I High Sensitivity 17 </=34 ng/L Lactic Acid Level 2.3 *H 0.4-2.0 mmol/L Test 06/14/24 05:56 06/14/24 04:59 Range/Units Urine Color Colorless Yellow Urine Clarity Ex.turbid Clear Urine pH 6.0 5.0-9.0 Urine Specific [place] 1.007 1.001-1.035 Urine Protein 2+ H Negative Urine Ketones Negative Negative Urine Blood 2+ H Negative /uL Urine Nitrite Negative Negative Urine Bilirubin Negative Negative Urine Urobilinogen Normal Negative mg/dL Urine Leukocyte Esterase 3+ Negative /uL Urine RBC 10 0 - 4 /hpf Urine WBC Clumps Present None Seen /hpf Urine Microscopic WBC 1589 H 0-5 /HPF Urine Squamous Epithelial Cells None seen <5 /hpf Urine Bacteria None seen None Seen /hpf Urine Glucose 3+ H Normal mg/dL Urine Opiates Screen Neg NEGATIVE Urine Fentanyl Screen Neg NEGATIVE Urine Barbiturates Screen Neg NEGATIVE Urine Phencyclidine Screen Neg NEGATIVE Urine Amphetamines Screen Neg NEGATIVE Urine Benzodiazepines Screen Neg NEGATIVE Urine Cocaine Screen Neg NEGATIVE Urine Cannabinoids Screen Neg NEGATIVE White Blood Count 13.1 H 4.4-10.8 10^3/uL Red Blood Count 3.56 L 4.0-5.20 10^6/uL Hemoglobin 10.6 L 12.2-16.2 g/dL Hematocrit 32.2 L 36.0-46.0 % Mean Corpuscular Volume 90.3 80.0-100.0 fL Mean Corpuscular Hemoglobin 29.8 28.0-32.0 pg Mean Corpuscular Hemoglobin Concent 33.0 32.0-36.0 g/dL Red Cell Distribution Width 13.2 11.8-14.3 % Platelet Count 361 140-450 10^3/uL Mean Platelet Volume 8.0 6.9-10.8 fL Neutrophils (%) (Auto) 75.6 37.0-80.0 % Lymphocytes (%) (Auto) 14.4 10.0-50.0 % Monocytes (%) (Auto) 7.0 0.0-12.0 % Eosinophils (%) (Auto) 2.1 0.0-7.0 % Basophils (%) (Auto) 0.9 0.0-2.0 % Neutrophils # (Auto) 9.9 H 1.6-8.6 10 ^3/uL Lymphocytes # (Auto) 1.9 0.4-5.4 10 ^3/uL Monocytes # (Auto) 0.9 0-1.3 10 ^3/uL Eosinophils # (Auto) 0.3 0-0.8 10 ^3/uL Basophils # (Auto) 0.1 0-0.2 10 ^3/uL Nucleated Red Blood Cells 0.1 % Sodium Level 134 L 136-145 mmol/L Potassium Level 3.6 3.5-5.1 mmol/L Chloride Level 98 98-107 mmol/L Carbon Dioxide Level 24 20-31 mmol/L Anion Gap 12 5-15 Blood Urea Nitrogen 24 H 9-23 mg/dL Creatinine 2.46 H 0.550-1.02 mg/dL Glomerular Filtration Rate Calc 23 >90 mL/min BUN/Creatinine Ratio 9.8 L 10.0-20.0 Serum Glucose 189 H 74-106 mg/dL Calcium Level 9.4 8.7-10.4 mg/dL Total Bilirubin < 0.2 L 0.2-1.0 mg/dL Aspartate Amino Transferase (AST) 13 13-40 U/L Alanine Aminotransferase (ALT) < 9 7-40 U/L Alkaline Phosphatase 97 46-116 U/L B-Type Natriuretic Peptide 47.28 0-100 pg/mL Total Protein 7.0 5.7-8.2 g/dL Albumin 3.8 3.2-4.8 g/dL Lipase 124 H 12-53 U/L Beta HCG, Quantitative 1.4 L 1.5-4.2 mIU/mL Plasma/Serum Blood Alcohol < 3.0 <10 mg/dL Primary Diagnosis Septic shock shock likely due to bilateral lower lobe pneumonia and UTI acute hypoxic respiratory failure requiring intubation likely due to bilateral lower lobe pneumonia JERROD likely due to shock DKA Plan Patient is intubated and sedated Pulmonology consult for vent management Cefepime and vanco for broad-spectrum antibiotics cover UTI and bilateral pneumonia Check sputum culture, blood culture, trend lactic acid until normalize Ordered another L of NS for fluid resuscitation On levo map goal greater than 65 while septic Versed, propofol and fentanyl for sedation Nephrology consult for JERROD Check urine sodium, urine creatinine Insulin sliding scale aggressive Check A1c level Insert NG tube Nutrition consult for NG tube diet Full code Heparin for DVT prophylaxis PPI for GI prophylaxis while intubated NPO except meds. To insert for tube diet Plan discussed with: Patient Date of Service: Jun 14, 2024 Billing Provider: FARHAT STOKES MD Common Visit Codes: [id number] CARE 30-74 MIN, [id number] CARE-EACH +30MIN FARHAT STOKES MD Jun 14, 2024 11:24
[2024-06-14] MEDS ORDERED: DEXTROSE (50%) 50ML SYRG IV PRN (11:30)
[2024-06-14] MEDS ORDERED: VANCOMYCIN PER PHARMACY 0 MG IV SCH (11:30)
[2024-06-14] MEDS: PANTOPRAZOLE 40 MG/10 ML VIAL INJ IV SCH (11:56)
[2024-06-14] MEDS: MIDAZOLAM DRIP 50 mg/50mL 50 ML IV SCH (12:00)
[2024-06-14] MEDS: ACCU-CHEK COMFORT CURVE STRIP VI SCH (12:00)
[2024-06-14 12:06] LABS: Basophils # (auto) 0.1 10 ^3/uL (0-0.2); Basophils % (auto) 0.8 % (0.0-2.0); Eosinophils # (auto) 0.3 10 ^3/uL (0-0.8); Eosinophils % (auto) 1.6 % (0.0-7.0); Hematocrit 30.6 % (36.0-46.0); Hemoglobin 10.1 g/dL (12.2-16.2); Lymphocytes # (auto) 1.8 10 ^3/uL (0.4-5.4); Mean Corpuscular Hemoglobin 29.7 pg (28.0-32.0); Mean Corpuscular Volume 89.8 fL (80.0-100.0); Monocytes % (auto) 5.8 % (0.0-12.0); Neutrophils # (auto) 14.5 10 ^3/uL (1.6-8.6); Neutrophils % (auto) 81.8 % (37.0-80.0); Nucleated Red Blood Cells % 0.1 %; Platelet Count (auto) 366 10^3/uL (140-450); White Blood Cell 17.8 10^3/uL (4.4-10.8)
[2024-06-14 12:27] LABS: Alkaline Phosphatase 93 U/L (46-116); Anion Gap 10 (5-15); Aspartate Aminotransferase 13 U/L (13-40); BUN/Creatinine Ratio 11.4 (10.0-20.0); Calcium 8.9 mg/dL (8.7-10.4); Carbon Dioxide 23 mmol/L (20-31); Chloride 100 mmol/L (98-107); Potassium 3.8 mmol/L (3.5-5.1)
[2024-06-14 12:28] LABS: Albumin 3.4 g/dL (3.2-4.8); Total Protein 6.3 g/dL (5.7-8.2)
[2024-06-14 12:32] LABS: Alanine Aminotransferase < 9 U/L (7-40); Bilirubin, Total < 0.2 mg/dL (0.2-1.0); Blood Urea Nitrogen 27 mg/dL (9-23); Glucose 262 mg/dL (74-106); Sodium 133 mmol/L (136-145)
[2024-06-14] MEDS: VANCOMYCIN 1GM/250ML KIT 250 ML IV ONE (12:53)
[2024-06-14] MEDS: InsuLIN REG 1unit/0.01ml Soln (100units/ml) SC SCH (12:54)
--- NOTE | 2024-06-14 13:49 | DVHSR ---
APPROVED REPORT EXAM: LIMITED Two-dimensional and M-mode echocardiogram with Doppler and color Doppler. Blood Pressure: 111/42 mmHg INDICATION CXR shows congestion R/O Heart Failure RISK FACTORS Obesity: Height: 5' 5", Weight: 260 DIMENSIONS LVDd4.7 (3.8-5.7cm)LA (2D)4.1 (1.9-4.0cm)Aortic Root3.0 (2.0-3.7cm) LVDs3.2 (2.5-4.0cm)LA (MM) (1.9-4.0cm)Aortic Cusp Exc1.7 (1.5-2.0cm) EF (%) 60.0 (55-70%)Rt. Atrium4.0 (1.9-4.0cm)Asc. Aorta cm IVSd1.3 (0.7-1.1cm)RV (D) (1.8-2.4cm) PWd1.4 (0.7-1.1cm) Mitral Valve MitralMitral Stenosis E wave1.20m/sMV Mean GR.mmHg A wave1.30m/sMV Peak GR.mmHg E/A ratio0.92D MVAcm2 Aortic Valve Aortic ValveAortic Stenosis V11.10m/Zeus Mean GR.12mmHg V22.30m/Zeus Peak GR.23mmHg LVOT Diameter2.2 (1.8-2.4cm)Doppler AVA1.82cm2 Pulmonic Valve V21.00m/s Tricuspid Valve TR Velocity3.30m/s [id number] LEFT VENTRICLE The left ventricle is of normal size. Wall thickness is [id number]-qchykyiarm increased. Ejection frac tion is normal and is estimated at 55-60%. Endocardial definition is suboptimal to assess for wall m otion abnormalities. There is grade II diastolic dysfunction. E to E prime ratio is elevated sugges tive of high left-sided filling pressure. RIGHT VENTRICLE The right ventricle is likely of normal size and systolic function. ATRIA The left atrium is mildly dilated in size. Right atrium is likely of normal size. Interatrial septu m is not well visualized. MITRAL VALVE Normal structure and function. There is mild regurgitation. PULMONIC VALVE Likely normal. TRICUSPID VALVE Normal in structure and function. There is trace tricuspid regurgitation. PA systolic pressure is e stimated at 50-55 mm Hg. AORTIC VALVE Not very well visualized. No evidence of significant stenosis or regurgitation. GREAT VESSELS The aortic root is of normal size. Proximal ascending aorta isn't visualized. PERICARDIAL EFFUSION No significant pericardial effusion. IVC isn't visualized. Other Information Quality : Technically LimitedRhythm : Technically limited study due to body habitus, patient position, and on vent. Conclusion The study is technically limited. Normal left ventricular size and systolic function. Ejection fraction is estimated at 55%. [id number]-bdldzkwd concentric left ventricular hypertrophy. Grade II diastolic dysfunction with evidence of elevated left-sided filling pressure. Likely normal right ventricular size and systolic function. No evidence of hemodynamically significant valvular disease. PA systolic pressure is estimated at 50-55 mm Hg. No significant pericardial effusion.
[2024-06-14 14:02] LABS: Creatinine, Urine 13.77 mg/dL (30.0-125.0)
--- NOTE | 2024-06-14 15:08 | DVHINCON2 ---
Date of service: Jun 14, 2024 Referring Physician hospitalist History of Present Illness 49-year-old female patient is known to me from nephrology clinic for chronic kidney disease stage IIIB in the setting of diabetic nephropathy. Patient presents to the hospital weakness. Patient was intubated and on pressors. Un able to obtain full history. Patient's workup has shown significant white blood cells in Ewing and on urinalysis. Nephrology consulted due to acute kidney injury Past Medical History Diabetes, hypertension, retinopathy, peripheral neuropathy, diastolic heart failure, peripheral vascular disease, coronary artery disease with a history of CABG, hypothyroidism, endometrial cancer in April of 2023 status post chemo Reports chemo lead to foot drop Nephrotic syndrome secondary to diabetes Past Surgical History Hysterectomy in September of 2023 Allergies: Coded Allergies: Diphenhydramine (Verified Allergy, Unknown, 01/12/24) Morphine (Verified Allergy, Unknown, 01/12/24) Home Meds Active Scripts Hydrocodone-Acetaminophen (Hydrocodone Bitartrate/AC 10-325 mg) 1 Tab Tab, 1 TAB PO Q6HPRN PRN, #20 TAB Prov:CRISTI L[address] PAC 01/13/24 Current Medications Current Medications Medications (Trade) Dose Ordered Sig/Yanna Route PRN Reason Start Time Stop Time Status Last Admin Propofol 100 ml @ 3.54 mls/hr Q24H IV 06/14/24 05:45 06/14/24 06:18 DC Norepinephrine Bitartrate 250 ml @ 3.75 mls/hr Q24H IV 06/14/24 06:15 06/14/24 05:30 Propofol 100 ml @ 3.54 mls/hr Q24H IV 06/14/24 06:15 06/14/24 08:30 Fentanyl Citrate 250 ml @ 2.5 mls/hr Q24H IV 06/14/24 06:15 06/14/24 06:43 Norepinephrine Bitartrate 250 ml @ 3.75 mls/hr Q24H IV 06/14/24 06:30 06/14/24 11:44 DC Docusate Sodium (Colace Capsule) 100 mg BIDPRN PRN PO FOR CONSTIPATION 06/14/24 11:15 Acetaminophen (Tylenol Tablet) 650 mg Q6HP PRN PO PAIN SCALE 1-3 OR TEMP>100.4 06/14/24 11:15 Acetaminophen/ Hydrocodone Bitart ([place] 5/325MG Tab) 1 tab Q4HP PRN PO MODERATE PAIN (4-6 PAIN SCALE) 06/14/24 11:15 Hydromorphone HCl (Dilaudid Injection) 0.5 mg Q4HP PRN IV SEVERE PAIN (7-10 PAIN SCALE) 06/14/24 11:15 Ondansetron HCl (Zofran) 4 mg Q4HP PRN IV NAUSEA / VOMITING 06/14/24 11:15 Midazolam HCl 50 ml @ 1 mls/hr Q24H IV 06/14/24 11:30 06/14/24 12:00 Cefepime HCl 50 ml @ 12.5 mls/hr BID IV 06/14/24 22:00 Vancomycin HCl 0 ml @ 0 mls/hr UD IV 06/14/24 11:30 Pantoprazole Sodium (Protonix) 40 mg DAILY IV 06/14/24 11:30 06/14/24 11:56 Diagnostic Test (Pha) (Accu-Chek Comfort Curve T) 1 strip Q6HR 06/14/24 12:00 06/14/24 12:00 Insulin Human Regular (InsuLIN R) Q6HR SC 06/14/24 12:00 06/14/24 12:54 Dextrose 50 ml UD PRN IV Blood Sugar LESS THAN 60 06/14/24 11:30 Review of Systems Can not obtain due to critical illness H&P Exam Vital Signs/I&O Vital Sign Date Time Temp Pulse Resp B/P (MAP) Pulse Ox O2 Delivery O2 Flow Rate FiO2 06/14/24 14:33 88 20 137/65 (89) 100 30 06/14/24 14:00 Mechanical Ventilator+ 06/14/24 14:00 98.1 98.1 06/14/24 05:30 0 Intake and Output 06/13/24 06/14/24 19:00 07:00 Intake Total 7.5 ml Balance 7.5 ml Intake IV Total 7.5 ml Physical Exam Middle-aged female Intubated Sedated On pressors Appears mildly hypervolemic Abdomen is soft Ewing catheter has cloudy urine 1+ pitting edema Labs/Diagnostic Data Labs/Diagnostic Data Laboratory Tests Test 06/14/24 14:30 06/14/24 13:01 06/14/24 12:46 06/14/24 11:33 Range/Units Troponin I High Sensitivity 29 26 </=34 ng/L POC Glucose 253 H 70-106 mg/dl White Blood Count 17.8 #H 4.4-10.8 10^3/uL Red Blood Count 3.40 L 4.0-5.20 10^6/uL Hemoglobin 10.1 L 12.2-16.2 g/dL Hematocrit 30.6 L 36.0-46.0 % Mean Corpuscular Volume 89.8 80.0-100.0 fL Mean Corpuscular Hemoglobin 29.7 28.0-32.0 pg Mean Corpuscular Hemoglobin Concent 33.0 32.0-36.0 g/dL Red Cell Distribution Width 13.0 11.8-14.3 % Platelet Count 366 140-450 10^3/uL Mean Platelet Volume 8.0 6.9-10.8 fL Neutrophils (%) (Auto) 81.8 H 37.0-80.0 % Lymphocytes (%) (Auto) 10.0 10.0-50.0 % Monocytes (%) (Auto) 5.8 0.0-12.0 % Eosinophils (%) (Auto) 1.6 0.0-7.0 % Basophils (%) (Auto) 0.8 0.0-2.0 % Neutrophils # (Auto) 14.5 H 1.6-8.6 10 ^3/uL Lymphocytes # (Auto) 1.8 0.4-5.4 10 ^3/uL Monocytes # (Auto) 1.0 0-1.3 10 ^3/uL Eosinophils # (Auto) 0.3 0-0.8 10 ^3/uL Basophils # (Auto) 0.1 0-0.2 10 ^3/uL Nucleated Red Blood Cells 0.1 % Sodium Level 133 L 136-145 mmol/L Potassium Level 3.8 3.5-5.1 mmol/L Chloride Level 100 98-107 mmol/L Carbon Dioxide Level 23 20-31 mmol/L Anion Gap 10 5-15 Blood Urea Nitrogen 27 H 9-23 mg/dL Creatinine 2.36 H 0.550-1.02 mg/dL Glomerular Filtration Rate Calc 25 >90 mL/min BUN/Creatinine Ratio 11.4 10.0-20.0 Serum Glucose 262 H 74-106 mg/dL Lactic Acid Level 2.0 0.4-2.0 mmol/L Calcium Level 8.9 8.7-10.4 mg/dL Total Bilirubin < 0.2 L 0.2-1.0 mg/dL Aspartate Amino Transferase (AST) 13 13-40 U/L Alanine Aminotransferase (ALT) < 9 7-40 U/L Alkaline Phosphatase 93 46-116 U/L Total Protein 6.3 5.7-8.2 g/dL Albumin 3.4 3.2-4.8 g/dL Test 06/14/24 10:06 06/14/24 08:54 06/14/24 07:51 06/14/24 06:49 Range/Units POC Glucose 242 H 70-106 mg/dl Blood Gas Specimen Type Arterial Blood Gas Sample Site Left radial Blood Gas Patient Temperature 37.0 Arterial Blood Date Drawn [id number] Arterial Blood pH 7.346 L 7.350-7.450 Arterial Blood Partial Pressure CO2 41.6 32.0-45.0 mmHg Arterial Blood Partial Pressure O2 434.7 *H 83.0-108.0 mmHg Arterial Blood HCO3 22.2 21.0-28.0 mmol/L Arterial Blood Oxygen Saturation 99.5 H 94.0-98.0 % Arterial Blood Base Excess -3.2 L -2.0-3.0 mmol/L Arterial Blood Oxyhemoglobin 98.6 H 94.0-98.0 % Arterial Blood Carboxyhemoglobin 0.3 L 0.5-1.5 % Arterial Blood Methemoglobin 0.6 0.0-1.5 % Stephane Test Modified Blood Gas Total Hemoglobin 10.70 L 12.0-16.0 g/dL Blood Gas Set Respiration Rate 18.0 Blood Gas Modality Vent - ac FiO2 % 100.0 Blood Gas Tidal Volume 500.0 Blood Gas PEEP or CPAP 5.0 Blood Gas Critical Value Read Back Yes Blood Gas Notified Whom ligia Hannah Blood Gas Notified Time [id number] Blood Gas Notified By [employer] Firer cheri jordan Troponin I High Sensitivity 17 </=34 ng/L Lactic Acid Level 2.3 *H 0.4-2.0 mmol/L Test 06/14/24 06:14 06/14/24 05:56 06/14/24 04:59 Range/Units Troponin I High Sensitivity 9 7 </=34 ng/L Urine Color Colorless Yellow Urine Clarity Ex.turbid Clear Urine pH 6.0 5.0-9.0 Urine Specific [place] 1.007 1.001-1.035 Urine Protein 2+ H Negative Urine Ketones Negative Negative Urine Blood 2+ H Negative /uL Urine Nitrite Negative Negative Urine Bilirubin Negative Negative Urine Urobilinogen Normal Negative mg/dL Urine Leukocyte Esterase 3+ Negative /uL Urine RBC 10 0 - 4 /hpf Urine WBC Clumps Present None Seen /hpf Urine Microscopic WBC 1589 H 0-5 /HPF Urine Squamous Epithelial Cells None seen <5 /hpf Urine Bacteria None seen None Seen /hpf Urine Creatinine 13.77 L 30.0-125.0 mg/dL Urine Sodium 126 40-220 mmol/L Urine Glucose 3+ H Normal mg/dL Urine Opiates Screen Neg NEGATIVE Urine Fentanyl Screen Neg NEGATIVE Urine Barbiturates Screen Neg NEGATIVE Urine Phencyclidine Screen Neg NEGATIVE Urine Amphetamines Screen Neg NEGATIVE Urine Benzodiazepines Screen Neg NEGATIVE Urine Cocaine Screen Neg NEGATIVE Urine Cannabinoids Screen Neg NEGATIVE White Blood Count 13.1 H 4.4-10.8 10^3/uL Red Blood Count 3.56 L 4.0-5.20 10^6/uL Hemoglobin 10.6 L 12.2-16.2 g/dL Hematocrit 32.2 L 36.0-46.0 % Mean Corpuscular Volume 90.3 80.0-100.0 fL Mean Corpuscular Hemoglobin 29.8 28.0-32.0 pg Mean Corpuscular Hemoglobin Concent 33.0 32.0-36.0 g/dL Red Cell Distribution Width 13.2 11.8-14.3 % Platelet Count 361 140-450 10^3/uL Mean Platelet Volume 8.0 6.9-10.8 fL Neutrophils (%) (Auto) 75.6 37.0-80.0 % Lymphocytes (%) (Auto) 14.4 10.0-50.0 % Monocytes (%) (Auto) 7.0 0.0-12.0 % Eosinophils (%) (Auto) 2.1 0.0-7.0 % Basophils (%) (Auto) 0.9 0.0-2.0 % Neutrophils # (Auto) 9.9 H 1.6-8.6 10 ^3/uL Lymphocytes # (Auto) 1.9 0.4-5.4 10 ^3/uL Monocytes # (Auto) 0.9 0-1.3 10 ^3/uL Eosinophils # (Auto) 0.3 0-0.8 10 ^3/uL Basophils # (Auto) 0.1 0-0.2 10 ^3/uL Nucleated Red Blood Cells 0.1 % Sodium Level 134 L 136-145 mmol/L Potassium Level 3.6 3.5-5.1 mmol/L Chloride Level 98 98-107 mmol/L Carbon Dioxide Level 24 20-31 mmol/L Anion Gap 12 5-15 Blood Urea Nitrogen 24 H 9-23 mg/dL Creatinine 2.46 H 0.550-1.02 mg/dL Glomerular Filtration Rate Calc 23 >90 mL/min BUN/Creatinine Ratio 9.8 L 10.0-20.0 Serum Glucose 189 H 74-106 mg/dL Lactic Acid Level 4.1 *H 0.4-2.0 mmol/L Calcium Level 9.4 8.7-10.4 mg/dL Total Bilirubin < 0.2 L 0.2-1.0 mg/dL Aspartate Amino Transferase (AST) 13 13-40 U/L Alanine Aminotransferase (ALT) < 9 7-40 U/L Alkaline Phosphatase 97 46-116 U/L B-Type Natriuretic Peptide 47.28 0-100 pg/mL Total Protein 7.0 5.7-8.2 g/dL Albumin 3.8 3.2-4.8 g/dL Lipase 124 H 12-53 U/L Beta HCG, Quantitative 1.4 L 1.5-4.2 mIU/mL Plasma/Serum Blood Alcohol < 3.0 <10 mg/dL Assessment Acute kidney injury hemodynamically mediated in setting of septic shock Chronic kidney disease stage IIIB: Dr. Short [facility] Nephrotic syndrome secondary to diabetic nephropathy History of coronary artery disease with diastolic heart failure Septic shock Urinary tract infection Acute respiratory failure Status post sepsis protocol IV fluid hydration Echocardiogram IV antibiotics broad-spectrum and urine culture sent Strict Is&Os Avoid hypotension Glycemic control rest of care as per primary medical team critical care time 33mins Plan discussed with: JAMEY Weiss MD Jun 14, 2024 15:08
--- NOTE | 2024-06-14 21:05 | DVH ---
EXAM: XY CHEST PORTABLE TECHNIQUE: Single frontal chest radiograph CLINICAL HISTORY: Diminished (L)lung sound COMPARISON: XY CHEST XRAY 1 VIEW on DOS: 06/14/24, XY CHEST PORTABLE on DOS: 02/22/24, XY CHEST XRAY 1 VIEW on DOS: 01/12/24 Findings/Impression: Frontal chest radiograph demonstrates no acute osseous or superficial soft tissue abnormalities. Endotracheal tube terminates 2.3 cm from the karen. Recommend retracting 3 cm for more optimal posit ioning. Right chest wall port terminates in the right atrium. Enteric tube is overlying the plane of the stom ach. The trachea is midline. The cardiac silhouette and mediastinum are within normal limits. Bibasilar atelectasis. No pneumothorax, pleural effusions, or consolidations.
[2024-06-14] MEDS: CEFEPIME 1GM/ 50ML 50 ML IV SCH (22:11)
[2024-06-14] MEDS: ACETAMINOPHEN 325 MG TAB PO PRN (22:32)
--- NOTE | 2024-06-14 23:24 | DVHINCON2 ---
Date of service: Jun 14, 2024 Referring Physician Sam Leach MD Reason for Consultation Vent management History of Present Illness A 49-year-old woman brought in by EMS to ED today with a chief complaint of generalized weakness, onset yesterday. Per EMS, patient's family member was woken up by the patient's scream, pt was found sitting on the ground. Patient states she tried to go the to the restroom when she began experiencing dizziness and generalized weakness, was not able to hold herself up and sat on the floor. On ED workup, pt was hypotensive, HR 90, O2 sat 98% on RA; noted to have acute kidney injury. She subsequently required intubation and pressors. Patient was admitted for further care and pulmonary consultation is requested for evaluation and management d/t the above findings Review of Systems: 14-point review of systems negative unless otherwise noted above. Past Medical History: Cancer, CHF, CVA, DM, High Lipids, HTN, IA, Thyroid Past Surgical History: CABG, Hysterectomy Medications: Reviewed. Allergies: Morphine and diphenhydramine. Family History: No family history of premature CAD. No family history of lung disorders. Social History: Nonsmoker. No alcohol or illicit drug use. Allergies: Coded Allergies: Diphenhydramine (Verified Allergy, Unknown, 01/12/24) Morphine (Verified Allergy, Unknown, 01/12/24) Home Meds Active Scripts Hydrocodone-Acetaminophen (Hydrocodone Bitartrate/AC 10-325 mg) 1 Tab Tab, 1 TAB PO Q6HPRN PRN, #20 TAB Prov:CRISTI L[address] PAC 01/13/24 Current Medications Current Medications Medications (Trade) Dose Ordered Sig/Yanna Route PRN Reason Start Time Stop Time Status Last Admin Propofol 100 ml @ 3.54 mls/hr Q24H IV 06/14/24 05:45 06/14/24 06:18 DC Norepinephrine Bitartrate 250 ml @ 3.75 mls/hr Q24H IV 06/14/24 06:15 06/14/24 05:30 Propofol 100 ml @ 3.54 mls/hr Q24H IV 06/14/24 06:15 06/14/24 08:30 Fentanyl Citrate 250 ml @ 2.5 mls/hr Q24H IV 06/14/24 06:15 06/14/24 06:43 Norepinephrine Bitartrate 250 ml @ 3.75 mls/hr Q24H IV 06/14/24 06:30 06/14/24 11:44 DC Docusate Sodium (Colace Capsule) 100 mg BIDPRN PRN PO FOR CONSTIPATION 06/14/24 11:15 Acetaminophen (Tylenol Tablet) 650 mg Q6HP PRN PO PAIN SCALE 1-3 OR TEMP>100.4 06/14/24 11:15 06/14/24 22:32 Acetaminophen/ Hydrocodone Bitart ([place] 5/325MG Tab) 1 tab Q4HP PRN PO MODERATE PAIN (4-6 PAIN SCALE) 06/14/24 11:15 Hydromorphone HCl (Dilaudid Injection) 0.5 mg Q4HP PRN IV SEVERE PAIN (7-10 PAIN SCALE) 06/14/24 11:15 Ondansetron HCl (Zofran) 4 mg Q4HP PRN IV NAUSEA / VOMITING 06/14/24 11:15 Midazolam HCl 50 ml @ 1 mls/hr Q24H IV 06/14/24 11:30 06/14/24 17:22 Cefepime HCl 50 ml @ 12.5 mls/hr BID IV 06/14/24 22:00 06/14/24 22:11 Vancomycin HCl 0 ml @ 0 mls/hr UD IV 06/14/24 11:30 Pantoprazole Sodium (Protonix) 40 mg DAILY IV 06/14/24 11:30 06/14/24 11:56 Diagnostic Test (Pha) (Accu-Chek Comfort Curve T) 1 strip Q6HR 06/14/24 12:00 06/14/24 17:37 Insulin Human Regular (InsuLIN R) Q6HR SC 06/14/24 12:00 06/14/24 17:38 Dextrose 50 ml UD PRN IV Blood Sugar LESS THAN 60 06/14/24 11:30 Vital Signs Vital Signs Date Time Temp Pulse Resp B/P (MAP) Pulse Ox O2 Delivery O2 Flow Rate FiO2 06/14/24 22:32 100.8 06/14/24 22:30 91 18 74/21 (38) 100 06/14/24 21:55 30 06/14/24 19:30 Mechanical Ventilator+ 30 Physical Exam Gen.: Patient lying in bed in medical ICU. Sedated, intubated on mechanical ventilator. Head: Normocephalic, atraumatic. Eyes: PERRLA. Ears: Normal external anatomy. Throat: Endotracheal tube and orogastric tube in place. Neck: Supple, trachea midline. Chest: Transmitted breath sounds bilaterally. Decreased air entry bilaterally. No wheezing. Bibasilar crackles. Cardiovascular: Positive S1, positive S2. Regular rate and rhythm. Abdomen: Positive bowel sounds in all 4 quadrants. Soft, nontender, nondistended. : Ewing in place. Normal external genitalia. Rectal: Deferred. Skin: Warm, dry. Intact. Extremities: 2+ radial pulses bilaterally. No lower extremity edema. Neuro: Sedated. Labs/Diagnostic Data Labs Test 06/14/24 17:30 06/14/24 14:30 06/14/24 11:33 06/14/24 08:54 Range/Units POC Glucose 220 H 70-106 mg/dl Troponin I High Sensitivity 31 </=34 ng/L White Blood Count 17.8 #H 4.4-10.8 10^3/uL Red Blood Count 3.40 L 4.0-5.20 10^6/uL Hemoglobin 10.1 L 12.2-16.2 g/dL Hematocrit 30.6 L 36.0-46.0 % Mean Corpuscular Volume 89.8 80.0-100.0 fL Mean Corpuscular Hemoglobin 29.7 28.0-32.0 pg Mean Corpuscular Hemoglobin Concent 33.0 32.0-36.0 g/dL Red Cell Distribution Width 13.0 11.8-14.3 % Platelet Count 366 140-450 10^3/uL Mean Platelet Volume 8.0 6.9-10.8 fL Neutrophils (%) (Auto) 81.8 H 37.0-80.0 % Lymphocytes (%) (Auto) 10.0 10.0-50.0 % Monocytes (%) (Auto) 5.8 0.0-12.0 % Eosinophils (%) (Auto) 1.6 0.0-7.0 % Basophils (%) (Auto) 0.8 0.0-2.0 % Neutrophils # (Auto) 14.5 H 1.6-8.6 10 ^3/uL Lymphocytes # (Auto) 1.8 0.4-5.4 10 ^3/uL Monocytes # (Auto) 1.0 0-1.3 10 ^3/uL Eosinophils # (Auto) 0.3 0-0.8 10 ^3/uL Basophils # (Auto) 0.1 0-0.2 10 ^3/uL Nucleated Red Blood Cells 0.1 % Sodium Level 133 L 136-145 mmol/L Potassium Level 3.8 3.5-5.1 mmol/L Chloride Level 100 98-107 mmol/L Carbon Dioxide Level 23 20-31 mmol/L Anion Gap 10 5-15 Blood Urea Nitrogen 27 H 9-23 mg/dL Creatinine 2.36 H 0.550-1.02 mg/dL Glomerular Filtration Rate Calc 25 >90 mL/min BUN/Creatinine Ratio 11.4 10.0-20.0 Serum Glucose 262 H 74-106 mg/dL Lactic Acid Level 2.0 0.4-2.0 mmol/L Calcium Level 8.9 8.7-10.4 mg/dL Total Bilirubin < 0.2 L 0.2-1.0 mg/dL Aspartate Amino Transferase (AST) 13 13-40 U/L Alanine Aminotransferase (ALT) < 9 7-40 U/L Alkaline Phosphatase 93 46-116 U/L Total Protein 6.3 5.7-8.2 g/dL Albumin 3.4 3.2-4.8 g/dL Blood Gas Specimen Type Arterial Blood Gas Sample Site Left radial Blood Gas Patient Temperature 37.0 Arterial Blood Date Drawn [id number] Arterial Blood pH 7.346 L 7.350-7.450 Arterial Blood Partial Pressure CO2 41.6 32.0-45.0 mmHg Arterial Blood Partial Pressure O2 434.7 *H 83.0-108.0 mmHg Arterial Blood HCO3 22.2 21.0-28.0 mmol/L Arterial Blood Oxygen Saturation 99.5 H 94.0-98.0 % Arterial Blood Base Excess -3.2 L -2.0-3.0 mmol/L Arterial Blood Oxyhemoglobin 98.6 H 94.0-98.0 % Arterial Blood Carboxyhemoglobin 0.3 L 0.5-1.5 % Arterial Blood Methemoglobin 0.6 0.0-1.5 % Stephane Test Modified Blood Gas Total Hemoglobin 10.70 L 12.0-16.0 g/dL Blood Gas Set Respiration Rate 18.0 Blood Gas Modality Vent - ac FiO2 % 100.0 Blood Gas Tidal Volume 500.0 Blood Gas PEEP or CPAP 5.0 Blood Gas Critical Value Read Back Yes Blood Gas Notified Whom ligia Hannah Blood Gas Notified Time [id number] Blood Gas Notified By [employer] Rec[employer]iter cheri jordan Test 06/14/24 05:56 06/14/24 04:59 Range/Units Urine Color Colorless Yellow Urine Clarity Ex.turbid Clear Urine pH 6.0 5.0-9.0 Urine Specific [place] 1.007 1.001-1.035 Urine Protein 2+ H Negative Urine Ketones Negative Negative Urine Blood 2+ H Negative /uL Urine Nitrite Negative Negative Urine Bilirubin Negative Negative Urine Urobilinogen Normal Negative mg/dL Urine Leukocyte Esterase 3+ Negative /uL Urine RBC 10 0 - 4 /hpf Urine WBC Clumps Present None Seen /hpf Urine Microscopic WBC 1589 H 0-5 /HPF Urine Squamous Epithelial Cells None seen <5 /hpf Urine Bacteria None seen None Seen /hpf Urine Creatinine 13.77 L 30.0-125.0 mg/dL Urine Sodium 126 40-220 mmol/L Urine Glucose 3+ H Normal mg/dL Urine Opiates Screen Neg NEGATIVE Urine Fentanyl Screen Neg NEGATIVE Urine Barbiturates Screen Neg NEGATIVE Urine Phencyclidine Screen Neg NEGATIVE Urine Amphetamines Screen Neg NEGATIVE Urine Benzodiazepines Screen Neg NEGATIVE Urine Cocaine Screen Neg NEGATIVE Urine Cannabinoids Screen Neg NEGATIVE B-Type Natriuretic Peptide 47.28 0-100 pg/mL Lipase 124 H 12-53 U/L Beta HCG, Quantitative 1.4 L 1.5-4.2 mIU/mL Plasma/Serum Blood Alcohol < 3.0 <10 mg/dL Microbiology Date/Time Source Procedure Growth Status 06/14/24 06:02 Sputum Gram Stain - Final Resulted 06/14/24 06:02 Sputum Respiratory Culture Pending Resulted Assessment Impression: Acute hypoxic respiratory failure On mechanical ventilator Shock Endometrial cancer Cerebrovascular accident Morbid obesity, BMI 44.7 Plan: s/p intubation on mechanical ventilator. CXR image and report reviewed. Devices in place. Cardiomegaly with pulmonary congestion and edema. Superimposed pneumonia cannot be excluded. ABG reviewed; notable for acidemia On AC mode; RR 18, VT 500, PEEP 5, FIO2 100% Titrate FIO2 to keep O2 saturation above 90%. VAP bundle. Daily ABG and CXR while intubated Sedate for ventilator synchrony Poor prognosis Continue antibiotics. F/u cultures. On pressors for hemodynamic support Levophed 6 mcg/min Titrate to keep mean arterial pressure greater than 65 mmHg. Monitor renal function Monitor electrolytes. Supplement as necessary. Monitor ins and outs. Maintain euvolemia. GI prophylaxis. DVT prophylaxis. Prognosis: Poor given patient's multiple co-morbidities. Condition: Critical Rest of plan per hospitalist and other consultants. A total of 35 minutes of critical care time was spent reviewing the patient record, examining the patient, making a diagnostic and therapeutic plan, discussing this plan with the medical personnel, following up on diagnostic studies and following the patient for clinical stability excluding any and all procedures. At least 50% of this time was spent in direct, [id number] contact. Thank you Dr. Leach for allowing me to participate in this patient's care. Further recommendations will depend on the patient's clinical course. Please do not hesitate to contact me if you have any questions or concerns. This medical document was created using an electronic medical record system with [employer] computerized dictation system. Although these documentations are being carefully reviewed, there may still be some phonetic and typographical changes. The errors are purely typographical, due to imperfection on the software program, and do not reflect any compromise in the patient's medical care. Plan discussed with: Other (RIVKA Vargas/Dr. Leach) ROSCOE REECE MD Jun 14, 2024 23:24
[2024-06-15] VITALS (62 sets, daily range): BP systolic 94–199; BP diastolic 18–152; PULSE 74–102; RESP 16–19; TEMP 96.4–100.9; O2SAT 99–100
[2024-06-15 04:24] LABS: Basophils # (auto) 0.1 10 ^3/uL (0-0.2); Basophils % (auto) 0.8 % (0.0-2.0); Eosinophils # (auto) 0.6 10 ^3/uL (0-0.8); Eosinophils % (auto) 3.5 % (0.0-7.0); Hematocrit 29.6 % (36.0-46.0); Hemoglobin 9.7 g/dL (12.2-16.2); Lymphocytes # (auto) 2.4 10 ^3/uL (0.4-5.4); Lymphocytes % (auto) 15.5 % (10.0-50.0); Mean Corpuscular Hemoglobin 29.8 pg (28.0-32.0); Mean Corpuscular Hgb Conc. 32.9 g/dL (32.0-36.0); Mean Corpuscular Volume 90.5 fL (80.0-100.0); Monocytes # (auto) 1.3 10 ^3/uL (0-1.3); Monocytes % (auto) 8.1 % (0.0-12.0); Neutrophils # (auto) 11.4 10 ^3/uL (1.6-8.6); Neutrophils % (auto) 72.1 % (37.0-80.0); Platelet Count (auto) 347 10^3/uL (140-450); Red Blood Cells 3.27 10^6/uL (4.0-5.20); Red Cell Distribution Width 13.4 % (11.8-14.3); White Blood Cell 15.7 10^3/uL (4.4-10.8)
[2024-06-15 04:46] LABS: Albumin 3.2 g/dL (3.2-4.8); Alkaline Phosphatase 102 U/L (46-116); Anion Gap 10 (5-15); Calcium 9.1 mg/dL (8.7-10.4); Carbon Dioxide 22 mmol/L (20-31); Chloride 101 mmol/L (98-107); Potassium 3.7 mmol/L (3.5-5.1)
[2024-06-15 04:47] LABS: Total Protein 6.2 g/dL (5.7-8.2)
[2024-06-15 04:49] LABS: Alanine Aminotransferase < 9 U/L (7-40); Aspartate Aminotransferase 9 U/L (13-40); Bilirubin, Total 0.2 mg/dL (0.2-1.0); Blood Urea Nitrogen 29 mg/dL (9-23); Glucose 236 mg/dL (74-106); Sodium 133 mmol/L (136-145)
--- NOTE | 2024-06-15 11:54 | DVHPN2 ---
Subjective The patient is seen and examined at bedside. She remained intubate. Reviewed: Care Plan, H&P, Labs, Medications, Previous Orders, Radiology Changes from previous H/P or p: No Changes Objective Vitals Vital Signs Date Time Temp Pulse Resp B/P (MAP) Pulse Ox O2 Delivery O2 Flow Rate FiO2 06/15/24 11:43 92 18 112/33 (59) 100 30 06/15/24 11:00 96.6 205.9 06/14/24 19:30 Mechanical Ventilator+ 30 Intake/Output Intake and Output 06/15/24 07:00 Intake Total 3123.785 ml Output Total 360 ml Balance 2763.785 ml Intake Oral 0 ml IV Total 3123.785 ml Output Urine Total 360 ml Stool Total 0 ml General Appearance: Other (Intubate, on vent, unable to exam) HEENT: Atraumatic, PERRLA, Mucous membr. moist/pink Neck: Supple Lungs: Clear to auscultation, Normal air movement Cardiovascular: Regular rate, Normal S1, Normal S2, No murmurs, Gallops, Rubs Neuro: Other (Intubate, on vent , unable to examined) Medications Current Medications Medications Dose Ordered Sig/Yanna Route Start Time Stop Time Status Last Admin Dose Admin Norepinephrine Bitartrate 250 ml @ 3.75 mls/hr Q24H IV 06/14/24 06:15 06/15/24 10:16 15 MLS/HR Propofol 100 ml @ 3.54 mls/hr Q24H IV 06/14/24 06:15 06/14/24 08:30 28.32 MLS/HR Fentanyl Citrate 250 ml @ 2.5 mls/hr Q24H IV 06/14/24 06:15 06/15/24 10:14 15 MLS/HR Docusate Sodium 100 mg BIDPRN PRN PO 06/14/24 11:15 Acetaminophen 650 mg Q6HP PRN PO 06/14/24 11:15 06/14/24 22:32 650 MG Acetaminophen/ Hydrocodone Bitart 1 tab Q4HP PRN PO 06/14/24 11:15 Hydromorphone HCl 0.5 mg Q4HP PRN IV 06/14/24 11:15 Ondansetron HCl 4 mg Q4HP PRN IV 06/14/24 11:15 Midazolam HCl 50 ml @ 1 mls/hr Q24H IV 06/14/24 11:30 06/15/24 06:07 5 MLS/HR Cefepime HCl 50 ml @ 12.5 mls/hr BID IV 06/14/24 22:00 06/15/24 10:12 12.5 MLS/HR Vancomycin HCl 0 ml @ 0 mls/hr UD IV 06/14/24 11:30 Pantoprazole Sodium 40 mg DAILY IV 06/14/24 11:30 06/15/24 10:12 40 MG Diagnostic Test (Pha) 1 strip Q6HR 06/14/24 12:00 06/15/24 05:48 1 STRIP Insulin Human Regular Q6HR SC 06/14/24 12:00 06/15/24 06:01 4 UNITS Dextrose 50 ml UD PRN IV 06/14/24 11:30 Laboratory Results Laboratory Tests 06/15/24 03:50 Chemistry Test 06/15/24 03:50 Albumin 3.2 g/dL (3.2-4.8) Calcium Level 9.1 mg/dL (8.7-10.4) Total Protein 6.2 g/dL (5.7-8.2) LFT Test 06/15/24 03:50 Alanine Aminotransferase (ALT) < 9 U/L (7-40) Alkaline Phosphatase 102 U/L (46-116) Aspartate Amino Transferase (AST) 9 U/L (13-40) L Total Bilirubin 0.2 mg/dL (0.2-1.0) Urinalysis Test 06/14/24 05:56 Urine Color Colorless (Yellow) Urine Clarity Ex.turbid (Clear) Urine pH 6.0 (5.0-9.0) Urine Specific [place] 1.007 (1.001-1.035) Urine Protein 2+ (Negative) H Urine Ketones Negative (Negative) Urine Blood 2+ /uL (Negative) H Urine Nitrite Negative (Negative) Urine Bilirubin Negative (Negative) Urine Urobilinogen Normal mg/dL (Negative) Urine Leukocyte Esterase 3+ /uL (Negative) Urine RBC 10 /hpf (0 - 4) Urine WBC Clumps Present /hpf (None Seen) Urine Microscopic WBC 1589 /HPF (0-5) H Urine Squamous Epithelial Cells None seen /hpf (<5) Urine Bacteria None seen /hpf (None Seen) Urine Creatinine 13.77 mg/dL (30.0-125.0) L Urine Sodium 126 mmol/L (40-220) Urine Glucose 3+ mg/dL (Normal) H Blood Gas Results Test 06/15/24 06:50 Arterial Blood pH 7.341 (7.350-7.450) FiO2 % 30.0 Microbiology Microbiology Date/Time Source Procedure Growth Status 06/14/24 06:14 Blood Blood Culture - Preliminary NO GROWTH AFTER 24 HOURS OF INCUBATION. Resulted 06/14/24 06:02 Sputum Gram Stain - Final Resulted 06/14/24 06:02 Sputum Respiratory Culture - Preliminary Resulted 06/14/24 05:56 Urine - [place] Urine Culture - Preliminary Resulted Labs and/or images reviewed: Labs reviewed by me Assessment/Plan Assessment/Plan Septic shock likely due to bilateral lower lobe pneumonia and UTI acute hypoxic respiratory failure requiring intubation likely due to bilateral lower lobe pneumonia JERROD likely due to shock DKA Continue current management. Continue with IV antibiotic Continue with ventilation support. Continue with insulin drip Plan discussed with: Other (RN) Date of Service: Jun 15, 2024 Billing Provider: EMERALD WINTER MD Common Visit Codes: [id number] INP/OBS CARE(HIGH) EMERALD WINTER MD Jun 15, 2024 11:54
[2024-06-15 16:12] LABS: COVID19 ANTIGEN SOFIA FIA NEGATIVE (NEGATIVE); Rapid Influenza A Negative (Negative); Rapid Influenza B Negative (Negative)
--- NOTE | 2024-06-15 16:58 | DVHPN2 ---
Progress Note Date Seen: Jun 15, 2024 Medical Necessity Reason Pt with a Central, PICC or Fol: Yes The following are medically ne: Central Line, [place] Catheter Objective vital signs Vital Sign Date Time Temp Pulse Resp B/P (MAP) Pulse Ox O2 Delivery O2 Flow Rate FiO2 06/15/24 16:47 100.9 06/15/24 15:54 113/18 06/15/24 15:40 96 18 100 30 06/15/24 08:00 Mechanical Ventilator+ 06/14/24 19:30 30 Total Intake and Output 06/14/24 06/14/24 06/15/24 15:00 23:00 07:00 Intake Total 2676 ml 200.785 ml 247.00 ml Output Total 360 ml Balance 2676 ml -159.215 ml 247.00 ml medications Current Medications Medications Dose Ordered Sig/Yanna Route Start Time Stop Time Status Last Admin Dose Admin Norepinephrine Bitartrate 250 ml @ 3.75 mls/hr Q24H IV 06/14/24 06:15 06/15/24 10:16 15 MLS/HR Propofol 100 ml @ 3.54 mls/hr Q24H IV 06/14/24 06:15 06/14/24 08:30 28.32 MLS/HR Fentanyl Citrate 250 ml @ 2.5 mls/hr Q24H IV 06/14/24 06:15 06/15/24 10:14 15 MLS/HR Docusate Sodium 100 mg BIDPRN PRN PO 06/14/24 11:15 Acetaminophen 650 mg Q6HP PRN PO 06/14/24 11:15 06/15/24 16:47 650 MG Acetaminophen/ Hydrocodone Bitart 1 tab Q4HP PRN PO 06/14/24 11:15 Hydromorphone HCl 0.5 mg Q4HP PRN IV 06/14/24 11:15 Ondansetron HCl 4 mg Q4HP PRN IV 06/14/24 11:15 Midazolam HCl 50 ml @ 1 mls/hr Q24H IV 06/14/24 11:30 06/15/24 13:15 7 MLS/HR Cefepime HCl 50 ml @ 12.5 mls/hr BID IV 06/14/24 22:00 06/15/24 10:12 12.5 MLS/HR Vancomycin HCl 0 ml @ 0 mls/hr UD IV 06/14/24 11:30 Pantoprazole Sodium 40 mg DAILY IV 06/14/24 11:30 06/15/24 10:12 40 MG Diagnostic Test (Pha) 1 strip Q6HR 06/14/24 12:00 06/15/24 12:00 1 STRIP Insulin Human Regular Q6HR SC 06/14/24 12:00 06/15/24 12:57 6 UNITS Dextrose 50 ml UD PRN IV 06/14/24 11:30 Examination: GENERAL:Abnormal, LUNGS:Abnormal, SKIN:Abnormal laboratory and microbiology Laboratory Tests 06/15/24 03:50 Test 06/15/24 03:50 Range/Units Serum Glucose 236 H 74-106 mg/dL Microbiology Date/Time Source Procedure Growth Status 06/14/24 06:14 Blood Blood Culture - Preliminary NO GROWTH AFTER 24 HOURS OF INCUBATION. Resulted 06/14/24 06:02 Sputum Gram Stain - Final Resulted 06/14/24 06:02 Sputum Respiratory Culture - Preliminary Resulted 06/14/24 05:56 Urine - [place] Urine Culture - Preliminary Resulted Problem List/Assessment/Plan Problem List/Assessment/Plan Acute kidney injury hemodynamically mediated in setting of septic shock Chronic kidney disease stage IIIB: Dr. [facility] Nephrotic syndrome secondary to diabetic nephropathy History of coronary artery disease with diastolic heart failure Septic shock Urinary tract infection Acute respiratory failure Increase pressors to achieve MAP 65-70 IV antibiotics broad-spectrum and urine culture sent Strict Is&Os Avoid hypotension Glycemic control rest of care as per primary medical team critical care time 33mins Plan discussed with: Other Dietary Evaluation Review Comments: 1. TPN per pharmacy, if NPO > 7 days if EN/GI not accessible, PO not medcially feasible. 2. TF Nepro @35ml/hr, providing 68 gPr and 1487 kcal in 24 hrs this sastifies pt's needs at 96% pro, and 115% kcal. 3. Offer CCHO-60, Renal Specific 70 g Pro restriction if pt is able to eat and passing a speech eval and not on dialysis, if pt is scheduled for dialysis, diet may be CCHO-60g, Renal Standard Diet Expected Outcomes/Goals: Meeting 75% of pt's needs, gradual wt loss. Critical Care Time (mins): 34 JAMEY SHORT MD Jun 15, 2024 16:58
[2024-06-15] MEDS: FUROSEMIDE 100 MG/10ML VIAL IV ONE (18:56)
--- NOTE | 2024-06-15 22:30 | DVHPN2 ---
Progress Note - Dictate Date Seen: Jun 15, 2024 Medical Necessity Reason Pt with a Central, PICC or Fol: Yes The following are medically ne: Central Line, Lerner Catheter Reason for lerner catheter: Strict I&O Subjective Patient seen and examined at bedside. Sedated, intubated on mechanical ventilator. Overnight events reviewed. vital signs Vital Sign Date Time Temp Pulse Resp B/P (MAP) Pulse Ox O2 Delivery O2 Flow Rate FiO2 06/15/24 21:15 81 18 129/53 (78) 100 30 06/15/24 19:45 99.3 99.3 06/15/24 08:00 Mechanical Ventilator+ 06/14/24 19:30 30 Total Intake and Output 06/14/24 06/14/24 06/15/24 15:00 23:00 07:00 Intake Total 2676 ml 200.785 ml 247.00 ml Output Total 360 ml Balance 2676 ml -159.215 ml 247.00 ml medications Current Medications Medications Dose Ordered Sig/Yanna Route Start Time Stop Time Status Last Admin Dose Admin Norepinephrine Bitartrate 250 ml @ 3.75 mls/hr Q24H IV 06/14/24 06:15 06/15/24 10:16 15 MLS/HR Propofol 100 ml @ 3.54 mls/hr Q24H IV 06/14/24 06:15 06/14/24 08:30 28.32 MLS/HR Fentanyl Citrate 250 ml @ 2.5 mls/hr Q24H IV 06/14/24 06:15 06/15/24 10:14 15 MLS/HR Docusate Sodium 100 mg BIDPRN PRN PO 06/14/24 11:15 Acetaminophen 650 mg Q6HP PRN PO 06/14/24 11:15 06/15/24 16:47 650 MG Acetaminophen/ Hydrocodone Bitart 1 tab Q4HP PRN PO 06/14/24 11:15 Hydromorphone HCl 0.5 mg Q4HP PRN IV 06/14/24 11:15 Ondansetron HCl 4 mg Q4HP PRN IV 06/14/24 11:15 Midazolam HCl 50 ml @ 1 mls/hr Q24H IV 06/14/24 11:30 06/15/24 20:04 8 MLS/HR Cefepime HCl 50 ml @ 12.5 mls/hr BID IV 06/14/24 22:00 06/15/24 22:11 12.5 MLS/HR Vancomycin HCl 0 ml @ 0 mls/hr UD IV 06/14/24 11:30 Pantoprazole Sodium 40 mg DAILY IV 06/14/24 11:30 06/15/24 10:12 40 MG Diagnostic Test (Pha) 1 strip Q6HR 06/14/24 12:00 06/15/24 18:25 1 STRIP Insulin Human Regular Q6HR SC 06/14/24 12:00 06/15/24 18:25 8 UNITS Dextrose 50 ml UD PRN IV 06/14/24 11:30 objective Gen.: Patient lying in bed in medical ICU. Sedated, intubated on mechanical ventilator. Head: Normocephalic, atraumatic. Eyes: PERRLA. Ears: Normal external anatomy. Throat: Endotracheal tube and orogastric tube in place. Neck: Supple, trachea midline. Chest: Transmitted breath sounds bilaterally. Decreased air entry bilaterally. No wheezing. Bibasilar crackles. Cardiovascular: Positive S1, positive S2. Regular rate and rhythm. Abdomen: Positive bowel sounds in all 4 quadrants. Soft, nontender, nondistended. : Lerner in place. Normal external genitalia. Rectal: Deferred. Skin: Warm, dry. Intact. Extremities: 2+ radial pulses bilaterally. No lower extremity edema. Neuro: Sedated. laboratory and microbiology Laboratory Tests 06/15/24 03:50 Test 06/15/24 03:50 Range/Units Serum Glucose 236 H 74-106 mg/dL Assessment/Plan Impression: Acute hypoxic respiratory failure On mechanical ventilator Shock Endometrial cancer Cerebrovascular accident Morbid obesity, BMI 44.7 Events: Remains on vent support On AC mode; RR 18, VT 500, PEEP 5, FIO2 100 -->30% Sedated on Versed, Fentanyl On pressors for hemodynamic support Levophed 6 mcg/min Titrate to keep mean arterial pressure greater than 65 mmHg. ABG reviewed, notable for acidemia Continue antibiotics. Diurese as tolerated w/ Lasix Monitor renal function Monitor electrolytes. Supplement as necessary. Labs and imaging reviewed. Rest of plan as noted below. Plan: s/p intubation on mechanical ventilator. CXR image and report reviewed. Devices in place. Cardiomegaly with pulmonary congestion and edema. Superimposed pneumonia cannot be excluded. On AC mode; RR 18, VT 500, PEEP 5, FIO2 30% Titrate FIO2 to keep O2 saturation above 90%. VAP bundle. Daily ABG and CXR while intubated Sedate for ventilator synchrony Poor prognosis Continue antibiotics. F/u cultures. On pressors for hemodynamic support Levophed 6 mcg/min Titrate to keep mean arterial pressure greater than 65 mmHg. Monitor renal function Monitor electrolytes. Supplement as necessary. Monitor ins and outs. Maintain euvolemia. GI prophylaxis. DVT prophylaxis. Prognosis: Poor given patient's multiple co-morbidities. Condition: Critical Rest of plan per hospitalist and other consultants. A total of 35 minutes of critical care time was spent reviewing the patient record, examining the patient, making a diagnostic and therapeutic plan, discussing this plan with the medical personnel, following up on diagnostic studies and following the patient for clinical stability excluding any and all procedures. At least 50% of this time was spent in direct, [id number] contact. Thank you Dr. Leach for allowing me to participate in this patient's care. Further recommendations will depend on the patient's clinical course. Please do not hesitate to contact me if you have any questions or concerns. This medical document was created using an electronic medical record system with [employer] dictation system. Although these documentations are being carefully reviewed, there may still be some phonetic and typographical changes. The errors are purely typographical, due to imperfection on the software program, and do not reflect any compromise in the patient's medical care. Dietary Evaluation Review Comments: 1. TPN per pharmacy, if NPO > 7 days if EN/GI not accessible, PO not medcially feasible. 2. TF Nepro @35ml/hr, providing 68 gPr and 1487 kcal in 24 hrs this sastifies pt's needs at 96% pro, and 115% kcal. 3. Offer CCHO-60, Renal Specific 70 g Pro restriction if pt is able to eat and passing a speech eval and not on dialysis, if pt is scheduled for dialysis, diet may be CCHO-60g, Renal Standard Diet Expected Outcomes/Goals: Meeting 75% of pt's needs, gradual wt loss. Plan discussed with: Other (RIVKA Cortez) Critical Care Time(min): 35 ROSCOE REECE MD Jun 15, 2024 22:30
[2024-06-16] VITALS (78 sets, daily range): BP systolic 53–157; BP diastolic 26–89; PULSE 75–96; RESP 6–20; TEMP 98.4–100.6; O2SAT 98–100
[2024-06-16 03:16] LABS: Basophils # (auto) 0.1 10 ^3/uL (0-0.2); Basophils % (auto) 1.1 % (0.0-2.0); Eosinophils # (auto) 0.5 10 ^3/uL (0-0.8); Eosinophils % (auto) 4.3 % (0.0-7.0); Hematocrit 25.8 % (36.0-46.0); Hemoglobin 8.8 g/dL (12.2-16.2); Lymphocytes # (auto) 1.8 10 ^3/uL (0.4-5.4); Lymphocytes % (auto) 16.5 % (10.0-50.0); Mean Corpuscular Hemoglobin 30.9 pg (28.0-32.0); Mean Corpuscular Hgb Conc. 34.1 g/dL (32.0-36.0); Mean Corpuscular Volume 90.7 fL (80.0-100.0); Monocytes # (auto) 0.7 10 ^3/uL (0-1.3); Monocytes % (auto) 6.5 % (0.0-12.0); Neutrophils % (auto) 71.6 % (37.0-80.0); Platelet Count (auto) 281 10^3/uL (140-450); Red Blood Cells 2.84 10^6/uL (4.0-5.20); Red Cell Distribution Width 13.6 % (11.8-14.3); White Blood Cell 11.1 10^3/uL (4.4-10.8)
[2024-06-16 03:36] LABS: Alkaline Phosphatase 105 U/L (46-116); Anion Gap 10 (5-15); Calcium 9.2 mg/dL (8.7-10.4); Carbon Dioxide 21 mmol/L (20-31); Chloride 103 mmol/L (98-107); Potassium 3.9 mmol/L (3.5-5.1)
[2024-06-16 03:37] LABS: Aspartate Aminotransferase 13 U/L (13-40); Bilirubin, Total 0.4 mg/dL (0.2-1.0); Total Protein 5.7 g/dL (5.7-8.2)
[2024-06-16 03:45] LABS: Alanine Aminotransferase < 9 U/L (7-40); Blood Urea Nitrogen 34 mg/dL (9-23); Glucose 345 mg/dL (74-106); Sodium 134 mmol/L (136-145)
[2024-06-16 07:32] LABS: Base Excess -2.8 mmol/L (-2.0-3.0)
--- NOTE | 2024-06-16 09:08 | DVH ---
EXAM: XR Chest, 1 View CLINICAL INDICATION: intubated TECHNIQUE: Frontal view of the chest. COMPARISON: XY CHEST PORTABLE on DOS: 06/14/24, XY CHEST XRAY 1 VIEW on DOS: 06/14/24, XY CHEST CAMRYN BLE on DOS: 02/22/24, XY CHEST XRAY 1 VIEW on DOS: 01/12/24 FINDINGS: LUNGS AND PLEURAL SPACES: See below. HEART: Cardiomegaly with mild congestion. MEDIASTINUM: Unremarkable. Normal mediastinal contour. BONES/JOINTS: Unremarkable. No acute fracture. TUBES, LINES AND DEVICES: Right-sided Mediport with the distal tip in the SVC. No pneumothorax. Th e endotracheal tube (ETT) is in satisfactory position. Enteric tube tip in the stomach. OTHER FINDINGS: . . IMPRESSION: Cardiomegaly with mild congestion.
--- NOTE | 2024-06-16 09:56 | DVHPN2 ---
Progress Note Date Seen: Jun 16, 2024 Medical Necessity Reason Pt with a Central, PICC or Fol: Yes The following are medically ne: Central Line, Lerner Catheter Reason for lerner catheter: Strict I&O Subjective Patient reports: Other Review of Systems: RESPIRATORY:Abnormal Objective vital signs Vital Sign Date Time Temp Pulse Resp B/P (MAP) Pulse Ox O2 Delivery O2 Flow Rate FiO2 06/16/24 09:33 123/45 06/16/24 08:00 85 06/16/24 07:32 18 100 30 06/16/24 07:00 99.1 99.1 06/15/24 20:00 Mechanical Ventilator+ 30 Total Intake and Output 06/15/24 06/15/24 06/16/24 15:00 23:00 07:00 Intake Total 325.25 ml 387.18 ml 294.8675 ml Output Total 400 ml Balance 325.25 ml -12.82 ml 294.8675 ml medications Current Medications Medications Dose Ordered Sig/Yanna Route Start Time Stop Time Status Last Admin Dose Admin Norepinephrine Bitartrate 250 ml @ 3.75 mls/hr Q24H IV 06/14/24 06:15 06/16/24 09:33 9.375 MLS/HR Propofol 100 ml @ 3.54 mls/hr Q24H IV 06/14/24 06:15 06/14/24 08:30 28.32 MLS/HR Fentanyl Citrate 250 ml @ 2.5 mls/hr Q24H IV 06/14/24 06:15 06/15/24 23:07 20 MLS/HR Docusate Sodium 100 mg BIDPRN PRN PO 06/14/24 11:15 Acetaminophen 650 mg Q6HP PRN PO 06/14/24 11:15 06/15/24 16:47 650 MG Acetaminophen/ Hydrocodone Bitart 1 tab Q4HP PRN PO 06/14/24 11:15 Hydromorphone HCl 0.5 mg Q4HP PRN IV 06/14/24 11:15 Ondansetron HCl 4 mg Q4HP PRN IV 06/14/24 11:15 Midazolam HCl 50 ml @ 1 mls/hr Q24H IV 06/14/24 11:30 06/16/24 09:33 9 MLS/HR Cefepime HCl 50 ml @ 12.5 mls/hr BID IV 06/14/24 22:00 06/15/24 22:11 12.5 MLS/HR Vancomycin HCl 0 ml @ 0 mls/hr UD IV 06/14/24 11:30 Pantoprazole Sodium 40 mg DAILY IV 06/14/24 11:30 06/15/24 10:12 40 MG Diagnostic Test (Pha) 1 strip Q6HR 06/14/24 12:00 06/16/24 06:06 1 STRIP Insulin Human Regular Q6HR SC 06/14/24 12:00 06/16/24 06:09 6 UNITS Dextrose 50 ml UD PRN IV 06/14/24 11:30 Examination: GENERAL:Abnormal, LUNGS:Abnormal laboratory and microbiology Laboratory Tests 06/16/24 02:58 Test 06/16/24 02:58 Range/Units Serum Glucose 345 H 74-106 mg/dL Microbiology Date/Time Source Procedure Growth Status 06/14/24 06:14 Blood Blood Culture - Preliminary NO GROWTH AFTER 48 HOURS OF INCUBATION. Resulted 06/14/24 06:02 Sputum Gram Stain - Final Resulted 06/14/24 06:02 Sputum Respiratory Culture - Preliminary Resulted 06/14/24 05:56 Urine - [place] Urine Culture - Preliminary Resulted Problem List/Assessment/Plan Problem List/Assessment/Plan Acute kidney injury hemodynamically mediated in setting of septic shock Chronic kidney disease stage IIIB: Dr. 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 TPN per pharmacy, if NPO > 7 days if EN/GI not accessible, PO not medcially feasible. 2. TF Nepro @35ml/hr, providing 68 gPr and 1487 kcal in 24 hrs this sastifies pt's needs at 96% pro, and 115% kcal. 3. Offer CCHO-60, Renal Specific 70 g Pro restriction if pt is able to eat and passing a speech eval and not on dialysis, if pt is scheduled for dialysis, diet may be CCHO-60g, Renal Standard Diet Expected Outcomes/Goals: Meeting 75% of pt's needs, gradual wt loss. Critical Care Time (mins): 33 JAMEY SHORT MD Jun 16, 2024 09:56
[2024-06-16 10:15] LABS: % Iron Saturation 15.8 % (15-50)
[2024-06-16] MEDS: FUROSEMIDE 40 MG/4 ML VIAL IV ONE (10:57)
[2024-06-16] MEDS: IRON SUCROSE COMPLEX 110 ML IV SCH (13:20)
[2024-06-16] MEDS ORDERED: DEXTROSE (50%) 50ML SYRG IV PRN (14:45)
--- NOTE | 2024-06-16 14:56 | DVHPN2 ---
Subjective The patient seen and examined at bedside. No change overnight. Remain intubated. Reviewed: Care Plan, H&P, Labs, Medications, Previous Orders, Radiology Changes from previous H/P or p: No Changes Objective Vitals Vital Signs Date Time Temp Pulse Resp B/P (MAP) Pulse Ox O2 Delivery O2 Flow Rate FiO2 06/16/24 14:40 82 18 118/34 (62) 99 30 06/16/24 14:30 99.9 211.8 06/16/24 08:00 Mechanical Ventilator+ 06/15/24 20:00 30 Intake/Output Intake and Output 06/16/24 07:00 Intake Total 1007.2975 ml Output Total 400 ml Balance 607.2975 ml Intake Oral 40 ml IV Total 967.2975 ml Output Urine Total 400 ml Stool Total 0 ml General Appearance: Other (Intubate, on vent, unable to exam) HEENT: Atraumatic, PERRLA Neck: Supple Lungs: Clear to auscultation, Normal air movement Cardiovascular: Regular rate, Normal S1, Normal S2, No murmurs, Gallops, Rubs Abdomen: Normal bowel sounds, Soft, No tenderness Neuro: Other (Intubate, vein, unable to examined) Medications Current Medications Medications Dose Ordered Sig/Yanna Route Start Time Stop Time Status Last Admin Dose Admin Propofol 100 ml @ 3.54 mls/hr Q24H IV 06/14/24 06:15 06/14/24 08:30 28.32 MLS/HR Fentanyl Citrate 250 ml @ 2.5 mls/hr Q24H IV 06/14/24 06:15 06/16/24 11:25 20 MLS/HR Docusate Sodium 100 mg BIDPRN PRN PO 06/14/24 11:15 Acetaminophen 650 mg Q6HP PRN PO 06/14/24 11:15 06/16/24 10:57 650 MG Acetaminophen/ Hydrocodone Bitart 1 tab Q4HP PRN PO 06/14/24 11:15 Hydromorphone HCl 0.5 mg Q4HP PRN IV 06/14/24 11:15 Ondansetron HCl 4 mg Q4HP PRN IV 06/14/24 11:15 Midazolam HCl 50 ml @ 1 mls/hr Q24H IV 06/14/24 11:30 06/16/24 13:23 9 MLS/HR Cefepime HCl 50 ml @ 12.5 mls/hr BID IV 06/14/24 22:00 06/16/24 10:58 12.5 MLS/HR Vancomycin HCl 0 ml @ 0 mls/hr UD IV 06/14/24 11:30 Pantoprazole Sodium 40 mg DAILY IV 06/14/24 11:30 06/16/24 10:57 40 MG Iron Sucrose 110 ml @ 110 mls/hr DAILY@1200 IV 06/16/24 12:00 06/20/24 12:59 06/16/24 13:20 110 MLS/HR Norepinephrine Bitartrate 250 ml @ 3.75 mls/hr Q24H IV 06/16/24 14:45 UNV Diagnostic Test (Pha) 1 strip Q6HR 06/16/24 18:00 UNV Insulin Human Regular Q6HR SC 06/16/24 18:00 UNV Dextrose 50 ml UD PRN IV 06/16/24 14:45 UNV Laboratory Results Laboratory Tests 06/16/24 02:58 Chemistry Test 06/16/24 02:58 Albumin 3.0 g/dL (3.2-4.8) L Calcium Level 9.2 mg/dL (8.7-10.4) Total Protein 5.7 g/dL (5.7-8.2) LFT Test 06/16/24 02:58 Alanine Aminotransferase (ALT) < 9 U/L (7-40) Alkaline Phosphatase 105 U/L (46-116) Aspartate Amino Transferase (AST) 13 U/L (13-40) Total Bilirubin 0.4 mg/dL (0.2-1.0) Urinalysis Test 06/14/24 05:56 Urine Color Colorless (Yellow) Urine Clarity Ex.turbid (Clear) Urine pH 6.0 (5.0-9.0) Urine Specific [place] 1.007 (1.001-1.035) Urine Protein 2+ (Negative) H Urine Ketones Negative (Negative) Urine Blood 2+ /uL (Negative) H Urine Nitrite Negative (Negative) Urine Bilirubin Negative (Negative) Urine Urobilinogen Normal mg/dL (Negative) Urine Leukocyte Esterase 3+ /uL (Negative) Urine RBC 10 /hpf (0 - 4) Urine WBC Clumps Present /hpf (None Seen) Urine Microscopic WBC 1589 /HPF (0-5) H Urine Squamous Epithelial Cells None seen /hpf (<5) Urine Bacteria None seen /hpf (None Seen) Urine Creatinine 13.77 mg/dL (30.0-125.0) L Urine Sodium 126 mmol/L (40-220) Urine Glucose 3+ mg/dL (Normal) H Blood Gas Results Test 06/16/24 07:27 Arterial Blood pH 7.393 (7.350-7.450) FiO2 % 30.0 Microbiology Microbiology Date/Time Source Procedure Growth Status 06/14/24 06:14 Blood Blood Culture - Preliminary NO GROWTH AFTER 48 HOURS OF INCUBATION. Resulted 06/14/24 06:02 Sputum Gram Stain - Final Resulted 06/14/24 06:02 Sputum Respiratory Culture - Preliminary Resulted 06/14/24 05:56 Urine - [place] Urine Culture - Final Complete Labs and/or images reviewed: Labs reviewed by me Assessment/Plan Assessment/Plan Septic shock likely due to bilateral lower lobe pneumonia and UTI acute hypoxic respiratory failure requiring intubation likely due to bilateral lower lobe pneumonia JERROD likely due to shock DKA Continue current management. Continue with IV antibiotic Continue with ventilation support. Continue with insulin drip Appreciate Pulmonology and Nephrology input Plan discussed with: Other (RN) My Orders Orders - EMERALD WINTER MD Procedure Category Date Status Time Norepinephrine 8 PHA 06/16/24 Logged Mg/250ml Kit 14:45 Glucose Blood PHA 06/16/24 Logged (Accu-Chek Comfort 18:00 Insulin R (Human) PHA 06/16/24 Logged (Insulin R) 18:00 Dextrose 50% Syringe PHA 06/16/24 Logged 14:45 Date of Service: Jun 16, 2024 Billing Provider: EMERALD WINTER MD Common Visit Codes: [id number] INP/OBS CARE(HIGH) EMERALD WINTER MD Jun 16, 2024 14:56
[2024-06-16] MEDS: NOREPINEPHRINE 8 MG/250ML KIT 250 ML IV SCH (15:12)
[2024-06-16] MEDS: VANCOMYCIN 500mg/100mL 100 ML IV ONE (15:50)
[2024-06-16] MEDS: ACCU-CHEK COMFORT CURVE STRIP VI SCH (17:33)
[2024-06-16] MEDS: InsuLIN REG 1unit/0.01ml Soln (100units/ml) SC SCH (17:33)
--- NOTE | 2024-06-16 23:14 | DVHPN2 ---
Progress Note - Dictate Date Seen: Jun 16, 2024 Medical Necessity Reason Pt with a Central, PICC or Fol: Yes The following are medically ne: Central Line, Lerner Catheter Reason for lerner catheter: Strict I&O Subjective Patient seen and examined at bedside. Sedated, intubated on mechanical ventilator. Overnight events reviewed. vital signs Vital Sign Date Time Temp Pulse Resp B/P (MAP) Pulse Ox O2 Delivery O2 Flow Rate FiO2 06/16/24 22:51 147/32 06/16/24 22:15 76 18 99 30 06/16/24 20:00 Mechanical Ventilator+ 06/16/24 19:15 99.0 210.2 06/15/24 20:00 30 Total Intake and Output 06/15/24 06/15/24 06/16/24 15:00 23:00 07:00 Intake Total 325.25 ml 387.18 ml 294.8675 ml Output Total 400 ml Balance 325.25 ml -12.82 ml 294.8675 ml medications Current Medications Medications Dose Ordered Sig/Yanna Route Start Time Stop Time Status Last Admin Dose Admin Propofol 100 ml @ 3.54 mls/hr Q24H IV 06/14/24 06:15 06/14/24 08:30 28.32 MLS/HR Fentanyl Citrate 250 ml @ 2.5 mls/hr Q24H IV 06/14/24 06:15 06/16/24 21:32 20 MLS/HR Docusate Sodium 100 mg BIDPRN PRN PO 06/14/24 11:15 Acetaminophen 650 mg Q6HP PRN PO 06/14/24 11:15 06/16/24 10:57 650 MG Acetaminophen/ Hydrocodone Bitart 1 tab Q4HP PRN PO 06/14/24 11:15 Hydromorphone HCl 0.5 mg Q4HP PRN IV 06/14/24 11:15 Ondansetron HCl 4 mg Q4HP PRN IV 06/14/24 11:15 Midazolam HCl 50 ml @ 1 mls/hr Q24H IV 06/14/24 11:30 06/16/24 21:31 9 MLS/HR Cefepime HCl 50 ml @ 12.5 mls/hr BID IV 06/14/24 22:00 06/16/24 21:43 12.5 MLS/HR Vancomycin HCl 0 ml @ 0 mls/hr UD IV 06/14/24 11:30 Pantoprazole Sodium 40 mg DAILY IV 06/14/24 11:30 06/16/24 10:57 40 MG Iron Sucrose 110 ml @ 110 mls/hr DAILY@1200 IV 06/16/24 12:00 06/20/24 12:59 06/16/24 13:20 110 MLS/HR Norepinephrine Bitartrate 250 ml @ 3.75 mls/hr Q24H IV 06/16/24 14:45 06/16/24 15:12 9.375 MLS/HR Diagnostic Test (Pha) 1 strip Q6HR 06/16/24 18:00 06/16/24 17:33 1 STRIP Insulin Human Regular Q6HR SC 06/16/24 18:00 06/16/24 17:33 15 UNITS Dextrose 50 ml UD PRN IV 06/16/24 14:45 objective Gen.: Patient lying in bed in medical ICU. Sedated, intubated on mechanical ventilator. Head: Normocephalic, atraumatic. Eyes: PERRLA. Ears: Normal external anatomy. Throat: Endotracheal tube and orogastric tube in place. Neck: Supple, trachea midline. Chest: Transmitted breath sounds bilaterally. Decreased air entry bilaterally. No wheezing. Bibasilar crackles. Cardiovascular: Positive S1, positive S2. Regular rate and rhythm. Abdomen: Positive bowel sounds in all 4 quadrants. Soft, nontender, nondistended. : Lerner in place. Normal external genitalia. Rectal: Deferred. Skin: Warm, dry. Intact. Extremities: 2+ radial pulses bilaterally. No lower extremity edema. Neuro: Sedated. laboratory and microbiology Laboratory Tests 06/16/24 02:58 Test 06/16/24 02:58 Range/Units Serum Glucose 345 H 74-106 mg/dL Assessment/Plan Impression: Acute hypoxic respiratory failure On mechanical ventilator Shock Endometrial cancer Cerebrovascular accident Morbid obesity, BMI 44.7 Events: Remains on vent support On AC mode; RR 18, VT 500, PEEP 5, FIO2 30% Sedated on Versed, Fentanyl On pressors for hemodynamic support Levophed 5 mcg/min Titrate to keep mean arterial pressure greater than 65 mmHg. Pressor requirements gradually improving ABG reviewed, compensated Continue antibiotics. Diurese as tolerated w/ Lasix Monitor renal function Monitor electrolytes. Supplement as necessary. Taper sedation as tolerated CPAP with PS 8, PEEP 5 Labs and imaging reviewed. Rest of plan as noted below. Plan: s/p intubation on mechanical ventilator. CXR image and report reviewed. Devices in place. Cardiomegaly with pulmonary congestion and edema. Superimposed pneumonia cannot be excluded. On AC mode; RR 18, VT 500, PEEP 5, FIO2 30% Titrate FIO2 to keep O2 saturation above 90%. VAP bundle. Daily ABG and CXR while intubated Sedate for ventilator synchrony Poor prognosis Continue antibiotics. F/u cultures. On pressors for hemodynamic support Titrate to keep mean arterial pressure greater than 65 mmHg. Monitor renal function Monitor electrolytes. Supplement as necessary. Monitor ins and outs. Maintain euvolemia. GI prophylaxis. DVT prophylaxis. Prognosis: Poor given patient's multiple co-morbidities. Condition: Critical Rest of plan per hospitalist and other consultants. A total of 35 minutes of critical care time was spent reviewing the patient record, examining the patient, making a diagnostic and therapeutic plan, discussing this plan with the medical personnel, following up on diagnostic studies and following the patient for clinical stability excluding any and all procedures. At least 50% of this time was spent in direct, [id number] contact. Thank you Dr. Leach for allowing me to participate in this patient's care. Further recommendations will depend on the patient's clinical course. Please do not hesitate to contact me if you have any questions or concerns. This medical document was created using an electronic medical record system with [employer] dictation system. Although these documentations are being carefully reviewed, there may still be some phonetic and typographical changes. The errors are purely typographical, due to imperfection on the software program, and do not reflect any compromise in the patient's medical care. Dietary Evaluation Review Comments: 1. TPN per pharmacy, if NPO > 7 days if EN/GI not accessible, PO not medcially feasible. 2. TF Nepro @35ml/hr, providing 68 gPr and 1487 kcal in 24 hrs this sastifies pt's needs at 96% pro, and 115% kcal. 3. Offer CCHO-60, Renal Specific 70 g Pro restriction if pt is able to eat and passing a speech eval and not on dialysis, if pt is scheduled for dialysis, diet may be CCHO-60g, Renal Standard Diet Expected Outcomes/Goals: Meeting 75% of pt's needs, gradual wt loss. Plan discussed with: Other (RIVKA Adams) Critical Care Time(min): 35 ROSCOE REECE MD Jun 16, 2024 23:14
[2024-06-17] VITALS (64 sets, daily range): BP systolic 81–160; BP diastolic 23–71; PULSE 69–95; RESP 11–23; TEMP 98.6–100.8; O2SAT 96–100
--- NOTE | 2024-06-17 04:11 | DVH ---
EXAM: XY CHEST PORTABLE HISTORY: PT INTUBATED COMPARISON: XY CHEST PORTABLE on DOS: 06/16/24, XY CHEST PORTABLE on DOS: 06/14/24, XY CHEST XRAY 1 VIEW on DOS: 06/14/24, XY CHEST PORTABLE on DOS: 02/22/24, XY CHEST XRAY 1 VIEW on DOS: 01/12/24 TECHNIQUE: Portable AP view of the chest was performed. FINDINGS: Endotracheal tube is re-identified with its 2 2.3 cm above the karen. OG tube, right chest port-A-Ca th, and sternal wires are re-identified. Lung volumes are low. There is increased left basilar infil trate. There is central interstitial prominence. No pneumothorax. The heart is enlarged. IMPRESSION: 1. Mechanical ventilation and postoperative changes of the heart. 2. Increased left basilar infiltrate and/or effusion. 3. Cardiomegaly and central interstitial prominence which may be due to reactive airways disease or m ild CHF. This appearance may be exaggerated by low lung volumes.
[2024-06-17 05:58] LABS: Albumin 3.3 g/dL (3.2-4.8); Anion Gap 10 (5-15); Aspartate Aminotransferase 20 U/L (13-40); BUN/Creatinine Ratio 17.9 (10.0-20.0); Calcium 9.5 mg/dL (8.7-10.4); Carbon Dioxide 21 mmol/L (20-31); Chloride 104 mmol/L (98-107); Potassium 4.1 mmol/L (3.5-5.1)
[2024-06-17 05:59] LABS: Bilirubin, Total 0.3 mg/dL (0.2-1.0); Total Protein 6.2 g/dL (5.7-8.2)
[2024-06-17 06:04] LABS: Basophils # (auto) 0.1 10 ^3/uL (0-0.2); Basophils % (auto) 0.9 % (0.0-2.0); Eosinophils # (auto) 0.4 10 ^3/uL (0-0.8); Eosinophils % (auto) 3.8 % (0.0-7.0); Hematocrit 26.6 % (36.0-46.0); Hemoglobin 8.9 g/dL (12.2-16.2); Lymphocytes # (auto) 1.5 10 ^3/uL (0.4-5.4); Lymphocytes % (auto) 12.5 % (10.0-50.0); Mean Corpuscular Hemoglobin 30.3 pg (28.0-32.0); Mean Corpuscular Hgb Conc. 33.6 g/dL (32.0-36.0); Mean Corpuscular Volume 90.1 fL (80.0-100.0); Monocytes # (auto) 0.7 10 ^3/uL (0-1.3); Monocytes % (auto) 5.6 % (0.0-12.0); Neutrophils # (auto) 9.1 10 ^3/uL (1.6-8.6); Neutrophils % (auto) 77.2 % (37.0-80.0); Nucleated Red Blood Cells % 0.1 %; Platelet Count (auto) 317 10^3/uL (140-450); Red Blood Cells 2.95 10^6/uL (4.0-5.20); Red Cell Distribution Width 13.5 % (11.8-14.3); White Blood Cell 11.8 10^3/uL (4.4-10.8)
[2024-06-17 06:21] LABS: Alanine Aminotransferase < 9 U/L (7-40); Alkaline Phosphatase 120 U/L (46-116); Blood Urea Nitrogen 35 mg/dL (9-23); Glucose 270 mg/dL (74-106); Sodium 135 mmol/L (136-145)
[2024-06-17 07:05] LABS: Base Excess -3.1 mmol/L (-2.0-3.0)
--- NOTE | 2024-06-17 15:48 | DVHPN2 ---
Progress Note Date Seen: Jun 17, 2024 Medical Necessity Reason Pt with a Central, PICC or Fol: Yes The following are medically ne: Central Line, Lerner Catheter Reason for lerner catheter: Strict I&O Subjective Patient reports: Feels worse, Other Review of Systems: RESPIRATORY:Abnormal Objective vital signs Vital Sign Date Time Temp Pulse Resp B/P (MAP) Pulse Ox O2 Delivery O2 Flow Rate FiO2 06/17/24 14:15 100.6 90 18 130/66 (87) 100 213.1 06/17/24 14:07 30 06/17/24 01:36 Mechanical Ventilator+ 30 Total Intake and Output 06/16/24 06/16/24 06/17/24 15:00 23:00 07:00 Intake Total 482.00 ml 360.125 ml 317.0 ml Output Total 1700 ml 700 ml Balance -1218.00 ml -339.875 ml 317.0 ml medications Current Medications Medications Dose Ordered Sig/Yanna Route Start Time Stop Time Status Last Admin Dose Admin Propofol 100 ml @ 3.54 mls/hr Q24H IV 06/14/24 06:15 06/14/24 08:30 28.32 MLS/HR Fentanyl Citrate 250 ml @ 2.5 mls/hr Q24H IV 06/14/24 06:15 06/17/24 09:51 17.5 MLS/HR Docusate Sodium 100 mg BIDPRN PRN PO 06/14/24 11:15 Acetaminophen 650 mg Q6HP PRN PO 06/14/24 11:15 06/16/24 10:57 650 MG Acetaminophen/ Hydrocodone Bitart 1 tab Q4HP PRN PO 06/14/24 11:15 Hydromorphone HCl 0.5 mg Q4HP PRN IV 06/14/24 11:15 Ondansetron HCl 4 mg Q4HP PRN IV 06/14/24 11:15 Midazolam HCl 50 ml @ 1 mls/hr Q24H IV 06/14/24 11:30 06/17/24 09:10 9 MLS/HR Cefepime HCl 50 ml @ 12.5 mls/hr BID IV 06/14/24 22:00 06/17/24 09:54 12.5 MLS/HR Vancomycin HCl 0 ml @ 0 mls/hr UD IV 06/14/24 11:30 Pantoprazole Sodium 40 mg DAILY IV 06/14/24 11:30 06/17/24 09:53 40 MG Iron Sucrose 110 ml @ 110 mls/hr DAILY@1200 IV 06/16/24 12:00 06/20/24 12:59 06/17/24 11:40 110 MLS/HR Norepinephrine Bitartrate 250 ml @ 3.75 mls/hr Q24H IV 06/16/24 14:45 06/17/24 12:36 3.75 MLS/HR Diagnostic Test (Pha) 1 strip Q6HR 06/16/24 18:00 06/17/24 12:04 1 STRIP Insulin Human Regular Q6HR SC 06/16/24 18:00 06/17/24 12:04 9 UNITS Dextrose 50 ml UD PRN IV 06/16/24 14:45 Examination: GENERAL:Abnormal, LUNGS:Abnormal, ABDOMEN:Abnormal laboratory and microbiology Laboratory Tests 06/17/24 05:12 Test 06/17/24 05:12 Range/Units Serum Glucose 270 H 74-106 mg/dL Microbiology Date/Time Source Procedure Growth Status 06/14/24 06:14 Blood Blood Culture - Preliminary NO GROWTH AFTER 72 HOURS OF INCUBATION. Resulted 06/14/24 06:02 Sputum Gram Stain - Final Complete 06/14/24 06:02 Sputum Respiratory Culture - Final Complete 06/14/24 05:56 Urine - [place] Urine Culture - Final Complete Problem List/Assessment/Plan Problem List/Assessment/Plan Acute kidney injury hemodynamically mediated in setting of septic shock Chronic kidney disease stage IIIB: Dr. Short [facility] Nephrotic syndrome secondary to diabetic nephropathy History of coronary artery disease with diastolic heart failure Septic shock Urinary tract infection Acute respiratory failure anemia endometrial Ca June 17- sedation stopped renal function improved pressors to achieve MAP 65-70 lasix x1 to maintain fluid balance , will give based on daily assessment of volume anemia panel IV antibiotics broad-spectrum and urine culture sent Strict Is&Os Avoid hypotension Glycemic control rest of care as per primary medical team vent per ICU critical care time 33mins Plan discussed with: Other Dietary Evaluation Review Comments: 1. TPN per pharmacy, if NPO > 7 days if EN/GI not accessible, PO not medcially feasible. 2. TF Nepro @35ml/hr, providing 68 gPr and 1487 kcal in 24 hrs this sastifies pt's needs at 96% pro, and 115% kcal. 3. Offer CCHO-60, Renal Specific 70 g Pro restriction if pt is able to eat and passing a speech eval and not on dialysis, if pt is scheduled for dialysis, diet may be CCHO-60g, Renal Standard Diet Expected Outcomes/Goals: Meeting 75% of pt's needs, gradual wt loss. JAMEY SHORT MD Jun 17, 2024 15:48
[2024-06-17] MEDS: VANCOMYCIN 500mg/100mL 100 ML IV ONE (15:57)
--- NOTE | 2024-06-17 23:01 | DVHPN2 ---
Progress Note - Dictate Date Seen: Jun 17, 2024 Medical Necessity Reason Pt with a Central, PICC or Fol: Yes The following are medically ne: Central Line, Lerner Catheter Reason for lerner catheter: Strict I&O Subjective Patient seen and examined at bedside. Sedated, intubated on mechanical ventilator. Overnight events reviewed. vital signs Vital Sign Date Time Temp Pulse Resp B/P (MAP) Pulse Ox O2 Delivery O2 Flow Rate FiO2 06/17/24 22:30 100.0 81 16 129/63 (85) 99 100.0 06/17/24 20:15 30 06/17/24 19:30 Mechanical Ventilator+ 30 Total Intake and Output 06/16/24 06/16/24 06/17/24 15:00 23:00 07:00 Intake Total 482.00 ml 360.125 ml 317.0 ml Output Total 1700 ml 700 ml Balance -1218.00 ml -339.875 ml 317.0 ml medications Current Medications Medications Dose Ordered Sig/Yanna Route Start Time Stop Time Status Last Admin Dose Admin Propofol 100 ml @ 3.54 mls/hr Q24H IV 06/14/24 06:15 06/14/24 08:30 28.32 MLS/HR Fentanyl Citrate 250 ml @ 2.5 mls/hr Q24H IV 06/14/24 06:15 06/17/24 09:51 17.5 MLS/HR Docusate Sodium 100 mg BIDPRN PRN PO 06/14/24 11:15 Acetaminophen 650 mg Q6HP PRN PO 06/14/24 11:15 06/17/24 16:38 650 MG Acetaminophen/ Hydrocodone Bitart 1 tab Q4HP PRN PO 06/14/24 11:15 Hydromorphone HCl 0.5 mg Q4HP PRN IV 06/14/24 11:15 Ondansetron HCl 4 mg Q4HP PRN IV 06/14/24 11:15 Midazolam HCl 50 ml @ 1 mls/hr Q24H IV 06/14/24 11:30 06/17/24 09:10 9 MLS/HR Cefepime HCl 50 ml @ 12.5 mls/hr BID IV 06/14/24 22:00 06/17/24 21:56 12.5 MLS/HR Vancomycin HCl 0 ml @ 0 mls/hr UD IV 06/14/24 11:30 Pantoprazole Sodium 40 mg DAILY IV 06/14/24 11:30 06/17/24 09:53 40 MG Iron Sucrose 110 ml @ 110 mls/hr DAILY@1200 IV 06/16/24 12:00 06/20/24 12:59 06/17/24 11:40 110 MLS/HR Norepinephrine Bitartrate 250 ml @ 3.75 mls/hr Q24H IV 06/16/24 14:45 06/17/24 12:36 3.75 MLS/HR Diagnostic Test (Pha) 1 strip Q6HR 06/16/24 18:00 06/17/24 17:53 1 STRIP Insulin Human Regular Q6HR SC 06/16/24 18:00 06/17/24 17:53 9 UNITS Dextrose 50 ml UD PRN IV 06/16/24 14:45 objective Gen.: Patient lying in bed in medical ICU. Sedated, intubated on mechanical ventilator. Head: Normocephalic, atraumatic. Eyes: PERRLA. Ears: Normal external anatomy. Throat: Endotracheal tube and orogastric tube in place. Neck: Supple, trachea midline. Chest: Transmitted breath sounds bilaterally. Decreased air entry bilaterally. No wheezing. Bibasilar crackles. Cardiovascular: Positive S1, positive S2. Regular rate and rhythm. Abdomen: Positive bowel sounds in all 4 quadrants. Soft, nontender, nondistended. : Lerner in place. Normal external genitalia. Rectal: Deferred. Skin: Warm, dry. Intact. Extremities: 2+ radial pulses bilaterally. No lower extremity edema. Neuro: Sedated. laboratory and microbiology Laboratory Tests 06/17/24 05:12 Test 06/17/24 05:12 Range/Units Serum Glucose 270 H 74-106 mg/dL Assessment/Plan Impression: Acute hypoxic respiratory failure On mechanical ventilator Shock Endometrial cancer Cerebrovascular accident Morbid obesity, BMI 44.7 Events: Remains on vent support On AC mode; RR 18, VT 500, PEEP 5, FIO2 30% Sedated on Versed, Fentanyl On Levophed for hemodynamic support Titrate to keep mean arterial pressure greater than 65 mmHg. Pressor requirements gradually improving ABG reviewed, compensated CXR shows CABG changes; increased left basilar opacities; pulmonary vascular congestion. Continue antibiotics. Sputum cultures showing normal gemma. Diurese as tolerated w/ Lasix Monitor renal function - Cr trending down Monitor electrolytes. Supplement as necessary. Monitor ins and outs Iron supplementation Monitor hemoglobin Taper sedation as tolerated CPAP in AM with PS 8, PEEP 5 Labs and imaging reviewed. Rest of plan as noted below. Plan: s/p intubation on mechanical ventilator. CXR image and report reviewed. Devices in place. Cardiomegaly with pulmonary congestion and edema. Superimposed pneumonia cannot be excluded. On AC mode; RR 18, VT 500, PEEP 5, FIO2 30% Titrate FIO2 to keep O2 saturation above 90%. VAP bundle. Daily ABG and CXR while intubated Sedate for ventilator synchrony Poor prognosis Continue antibiotics. F/u cultures. On pressors for hemodynamic support Titrate to keep mean arterial pressure greater than 65 mmHg. Monitor renal function Monitor electrolytes. Supplement as necessary. Monitor ins and outs. Maintain euvolemia. GI prophylaxis. DVT prophylaxis. Prognosis: Poor given patient's multiple co-morbidities. Condition: Critical Rest of plan per hospitalist and other consultants. A total of 35 minutes of critical care time was spent reviewing the patient record, examining the patient, making a diagnostic and therapeutic plan, discussing this plan with the medical personnel, following up on diagnostic studies and following the patient for clinical stability excluding any and all procedures. At least 50% of this time was spent in direct, [id number] contact. Thank you Dr. Leach for allowing me to participate in this patient's care. Further recommendations will depend on the patient's clinical course. Please do not hesitate to contact me if you have any questions or concerns. This medical document was created using an electronic medical record system with [employer] dictation system. Although these documentations are being carefully reviewed, there may still be some phonetic and typographical changes. The errors are purely typographical, due to imperfection on the software program, and do not reflect any compromise in the patient's medical care. Dietary Evaluation Review Comments: 1. TPN per pharmacy, if NPO > 7 days if EN/GI not accessible, PO not medcially feasible. 2. TF Nepro @35ml/hr, providing 68 gPr and 1487 kcal in 24 hrs this sastifies pt's needs at 96% pro, and 115% kcal. 3. Offer CCHO-60, Renal Specific 70 g Pro restriction if pt is able to eat and passing a speech eval and not on dialysis, if pt is scheduled for dialysis, diet may be CCHO-60g, Renal Standard Diet Expected Outcomes/Goals: Meeting 75% of pt's needs, gradual wt loss. Plan discussed with: Other (RN) Critical Care Time(min): 35 ROSCOE REECE MD Jun 17, 2024 23:01
--- NOTE | 2024-06-17 23:35 | DVHPN2 ---
Subjective The patient seen and examined at bedside. No change overnight, still intubate Reviewed: Care Plan, H&P, Labs, Medications, Previous Orders, Radiology Changes from previous H/P or p: No Changes Objective Vitals Vital Signs Date Time Temp Pulse Resp B/P (MAP) Pulse Ox O2 Delivery O2 Flow Rate FiO2 06/17/24 23:00 100.0 81 18 137/62 (87) 99 100.0 06/17/24 22:02 30 06/17/24 19:30 Mechanical Ventilator+ 30 Intake/Output Intake and Output 06/17/24 07:00 Intake Total 1159.125 ml Output Total 2400 ml Balance -1240.875 ml Intake Oral 30 ml IV Total 1129.125 ml Output Urine Total 2400 ml Stool Total 0 ml General Appearance: Other (Intubate , on vent, ) HEENT: Atraumatic, PERRLA Neck: Supple Lungs: Clear to auscultation, Normal air movement Cardiovascular: Regular rate, Normal S1, Normal S2, No murmurs, Gallops, Rubs Psych/Mental Status: Other (Intubate, unable to exam) Medications Current Medications Medications Dose Ordered Sig/Yanna Route Start Time Stop Time Status Last Admin Dose Admin Propofol 100 ml @ 3.54 mls/hr Q24H IV 06/14/24 06:15 06/14/24 08:30 28.32 MLS/HR Fentanyl Citrate 250 ml @ 2.5 mls/hr Q24H IV 06/14/24 06:15 06/17/24 09:51 17.5 MLS/HR Docusate Sodium 100 mg BIDPRN PRN PO 06/14/24 11:15 Acetaminophen 650 mg Q6HP PRN PO 06/14/24 11:15 06/17/24 16:38 650 MG Acetaminophen/ Hydrocodone Bitart 1 tab Q4HP PRN PO 06/14/24 11:15 Hydromorphone HCl 0.5 mg Q4HP PRN IV 06/14/24 11:15 Ondansetron HCl 4 mg Q4HP PRN IV 06/14/24 11:15 Midazolam HCl 50 ml @ 1 mls/hr Q24H IV 06/14/24 11:30 06/17/24 09:10 9 MLS/HR Cefepime HCl 50 ml @ 12.5 mls/hr BID IV 06/14/24 22:00 06/17/24 21:56 12.5 MLS/HR Vancomycin HCl 0 ml @ 0 mls/hr UD IV 06/14/24 11:30 Pantoprazole Sodium 40 mg DAILY IV 06/14/24 11:30 06/17/24 09:53 40 MG Iron Sucrose 110 ml @ 110 mls/hr DAILY@1200 IV 06/16/24 12:00 06/20/24 12:59 06/17/24 11:40 110 MLS/HR Norepinephrine Bitartrate 250 ml @ 3.75 mls/hr Q24H IV 06/16/24 14:45 06/17/24 12:36 3.75 MLS/HR Diagnostic Test (Pha) 1 strip Q6HR 06/16/24 18:00 06/17/24 17:53 1 STRIP Insulin Human Regular Q6HR SC 06/16/24 18:00 06/17/24 17:53 9 UNITS Dextrose 50 ml UD PRN IV 06/16/24 14:45 Laboratory Results Laboratory Tests 06/17/24 05:12 Chemistry Test 06/17/24 05:12 Albumin 3.3 g/dL (3.2-4.8) Calcium Level 9.5 mg/dL (8.7-10.4) Total Protein 6.2 g/dL (5.7-8.2) LFT Test 06/17/24 05:12 Alanine Aminotransferase (ALT) < 9 U/L (7-40) Alkaline Phosphatase 120 U/L (46-116) H Aspartate Amino Transferase (AST) 20 U/L (13-40) Total Bilirubin 0.3 mg/dL (0.2-1.0) Urinalysis Test 06/14/24 05:56 Urine Color Colorless (Yellow) Urine Clarity Ex.turbid (Clear) Urine pH 6.0 (5.0-9.0) Urine Specific Russell 1.007 (1.001-1.035) Urine Protein 2+ (Negative) H Urine Ketones Negative (Negative) Urine Blood 2+ /uL (Negative) H Urine Nitrite Negative (Negative) Urine Bilirubin Negative (Negative) Urine Urobilinogen Normal mg/dL (Negative) Urine Leukocyte Esterase 3+ /uL (Negative) Urine RBC 10 /hpf (0 - 4) Urine WBC Clumps Present /hpf (None Seen) Urine Microscopic WBC 1589 /HPF (0-5) H Urine Squamous Epithelial Cells None seen /hpf (<5) Urine Bacteria None seen /hpf (None Seen) Urine Creatinine 13.77 mg/dL (30.0-125.0) L Urine Sodium 126 mmol/L (40-220) Urine Glucose 3+ mg/dL (Normal) H Blood Gas Results Test 06/17/24 06:57 Arterial Blood pH 7.415 (7.350-7.450) FiO2 % 30.0 Microbiology Microbiology Date/Time Source Procedure Growth Status 06/14/24 06:14 Blood Blood Culture - Preliminary NO GROWTH AFTER 72 HOURS OF INCUBATION. Resulted 06/14/24 06:02 Sputum Gram Stain - Final Complete 06/14/24 06:02 Sputum Respiratory Culture - Final Complete 06/14/24 05:56 Urine - [place] Urine Culture - Final Complete Labs and/or images reviewed: Labs reviewed by me Assessment/Plan Assessment/Plan Septic shock likely due to bilateral lower lobe pneumonia and UTI acute hypoxic respiratory failure requiring intubation likely due to bilateral lower lobe pneumonia JERROD likely due to shock DKA Continue current management. Continue with IV antibiotic Continue with ventilation support. Continue with insulin drip Appreciate Pulmonology and Nephrology input Plan discussed with: Patient Date of Service: Jun 17, 2024 Billing Provider: EMERALD WINTER MD Common Visit Codes: [id number] INP/OBS CARE(HIGH) EMERALD WINTER MD Jun 17, 2024 23:35
[2024-06-18] VITALS (14 sets, daily range): BP systolic 96–155; BP diastolic 49–73; PULSE 69–103; RESP 15–25; O2SAT 97–100
[2024-06-18 03:51] LABS: Basophils # (auto) 0.1 10 ^3/uL (0-0.2); Basophils % (auto) 1.1 % (0.0-2.0); Eosinophils # (auto) 0.4 10 ^3/uL (0-0.8); Hemoglobin 8.3 g/dL (12.2-16.2); Monocytes # (auto) 0.8 10 ^3/uL (0-1.3); Red Cell Distribution Width 13.7 % (11.8-14.3)
[2024-06-18 03:54] LABS: Lymphocytes # (auto) 1.3 10 ^3/uL (0.4-5.4); Lymphocytes % (auto) 13.2 % (10.0-50.0); Mean Corpuscular Hemoglobin 30.3 pg (28.0-32.0); Mean Corpuscular Hgb Conc. 33.2 g/dL (32.0-36.0); Mean Corpuscular Volume 91.1 fL (80.0-100.0); Monocytes % (auto) 8.1 % (0.0-12.0); Neutrophils # (auto) 7.5 10 ^3/uL (1.6-8.6); Neutrophils % (auto) 73.6 % (37.0-80.0); Platelet Count (auto) 337 10^3/uL (140-450); Red Blood Cells 2.75 10^6/uL (4.0-5.20); White Blood Cell 10.1 10^3/uL (4.4-10.8)
[2024-06-18 04:08] LABS: Alkaline Phosphatase 112 U/L (46-116); Anion Gap 9 (5-15); Aspartate Aminotransferase 22 U/L (13-40); BUN/Creatinine Ratio 18.9 (10.0-20.0); Calcium 9.2 mg/dL (8.7-10.4); Carbon Dioxide 23 mmol/L (20-31); Potassium 3.9 mmol/L (3.5-5.1); Sodium 139 mmol/L (136-145); Total Protein 5.9 g/dL (5.7-8.2)
[2024-06-18 04:16] LABS: Alanine Aminotransferase < 9 U/L (7-40); Albumin 2.9 g/dL (3.2-4.8); Bilirubin, Total 0.3 mg/dL (0.2-1.0); Blood Urea Nitrogen 28 mg/dL (9-23); Chloride 107 mmol/L (98-107); Glucose 262 mg/dL (74-106)
[2024-06-18 08:07] LABS: Base Excess -1.7 mmol/L (-2.0-3.0)
[2024-06-18 11:42] LABS: INR 1.02 (0.9-1.15); Prothrombin Time 10.8 sec (9.3-11.8)
--- NOTE | 2024-06-18 12:53 | DVHPNRES ---
Progress Note Date Seen: Jun 18, 2024 Resident Creating Document: YAZAN ALCALA RESIDENT Medical Necessity Reason Pt with a Central, PICC or Fol: Yes The following are medically ne: Central Line, Lerner Catheter Reason for lerner catheter: Strict I&O Subjective Review of Systems CATRACHITO RAMIREZ is a 49-year-old female with a PMH of CHF, CVA, type 2 DM, HLD, HTN, endometrial cancer status post hysterectomy, CABG presented to the ED with the complaints of generalized weakness. History obtained from the medical records, per patient's family, patient was tried to go to restroom, suddenly she experiencing dizziness and generalized weakness, fell down on the floor, started screaming, altered family brought her to ED, patient started less responsive and lethargic, desaturating so intubated and on mechanical ventilation. Patient seen and examined at the bedside. Currently sedated, intubated and on mechanical ventilation. Unable to obtain ROS due to patient's clinical status. Monitoring lab. CPAP Trial tomorrow. Added Glucerna. Changes from previous H/P or p: No Changes Objective vital signs Vital Sign Date Time Temp Pulse Resp B/P (MAP) Pulse Ox O2 Delivery O2 Flow Rate FiO2 06/18/24 12:03 93 19 125/57 (79) 98 30 06/18/24 10:30 99.7 99.7 06/18/24 07:53 Mechanical Ventilator+ 06/17/24 19:30 30 Total Intake and Output 06/17/24 06/17/24 06/18/24 14:59 22:59 06:59 Intake Total 726.375 ml 165.00 ml 166.875 ml Output Total 920 ml 900 ml Balance 726.375 ml -755.00 ml -733.125 ml medications Current Medications Medications Dose Ordered Sig/Yanna Route Start Time Stop Time Status Last Admin Dose Admin Propofol 100 ml @ 3.54 mls/hr Q24H IV 06/14/24 06:15 06/14/24 08:30 28.32 MLS/HR Fentanyl Citrate 250 ml @ 2.5 mls/hr Q24H IV 06/14/24 06:15 06/17/24 09:51 17.5 MLS/HR Docusate Sodium 100 mg BIDPRN PRN PO 06/14/24 11:15 Acetaminophen 650 mg Q6HP PRN PO 06/14/24 11:15 06/18/24 00:41 650 MG Acetaminophen/ Hydrocodone Bitart 1 tab Q4HP PRN PO 06/14/24 11:15 Hydromorphone HCl 0.5 mg Q4HP PRN IV 06/14/24 11:15 Ondansetron HCl 4 mg Q4HP PRN IV 06/14/24 11:15 Midazolam HCl 50 ml @ 1 mls/hr Q24H IV 06/14/24 11:30 06/18/24 04:17 5 MLS/HR Cefepime HCl 50 ml @ 12.5 mls/hr BID IV 06/14/24 22:00 06/18/24 10:32 12.5 MLS/HR Vancomycin HCl 0 ml @ 0 mls/hr UD IV 06/14/24 11:30 Pantoprazole Sodium 40 mg DAILY IV 06/14/24 11:30 06/18/24 10:30 40 MG Iron Sucrose 110 ml @ 110 mls/hr DAILY@1200 IV 06/16/24 12:00 06/20/24 12:59 06/18/24 12:27 110 MLS/HR Norepinephrine Bitartrate 250 ml @ 3.75 mls/hr Q24H IV 06/16/24 14:45 06/17/24 12:36 3.75 MLS/HR Diagnostic Test (Pha) 1 strip Q6HR 06/16/24 18:00 06/18/24 12:14 1 STRIP Insulin Human Regular Q6HR SC 06/16/24 18:00 06/18/24 12:14 12 UNITS Dextrose 50 ml UD PRN IV 06/16/24 14:45 Examination Pt is lying on bed General Appearance: intubated and on mechanical ventilation HEENT: Atraumatic, Mucous membranes moist/pink Respiratory: Clear to auscultation, Normal air movement, Cardiovascular: Regular rate, Normal S1, Normal S2, No murmurs Abdominal: hypoactive bowel sounds, no distention, no hepatosplenomegaly Extremities: 1+ edema BLE, Normal pulses, No tenderness/swelling Skin: No Significant rash, except surgical wound Neuro: mildly awake, limited exam Nurse was there as sharperone during examination laboratory and microbiology Laboratory Tests 06/18/24 03:18 Test 06/18/24 03:18 Range/Units Serum Glucose 262 H 74-106 mg/dL Microbiology Date/Time Source Procedure Growth Status 06/14/24 06:14 Blood Blood Culture - Preliminary NO GROWTH AFTER 72 HOURS OF INCUBATION. Resulted 06/14/24 06:02 Sputum Gram Stain - Final Complete 06/14/24 06:02 Sputum Respiratory Culture - Final Complete 06/14/24 05:56 Urine - Lerner Port Urine Culture - Final Complete Labs and/or images reviewed: Labs reviewed by me, Image(s) reviewed by me Problem List/Assessment/Plan Problem List/Assessment/Plan Neurology # Mechanical fall without LOC # Acute toxic or metabolic encephalopathy likely due to sepsis # H/o CVA - CT showed no acute changes Cardiology # HTN # Shock likely due to sepsis from UTI vs PNA # HLD # H/O SD # s/p CABG # ? Acute on chronic diastolic CHF - BNP wnl, - Echo showed EF 55% with a grade 2 diastolic dysfunction - currently off Levophed since AM 06/18 - currently receiving vancomycin and meropenem -DC cefepime - ordered pancultures, - monitor lab Respiratory # Acute hypoxic respiratory failure likely due to sepsis s/p intubation # ? Acute G+/- bacterial PNA - CXR showed increased left basilar opacities; pulmonary vascular congestion. - sedated, intubated and on mechanical ventilation - RR 18, VT 500, FiO2 30%, peep 5 - currently ICU status - fentanyl, Versed, propofol, Levophed off since a.m. - currently receiving vancomycin and meropenem - DC cefepime - Monitor GI/Liver/ Abdomen # Morbid Obesity BMI 44.7 - Nutrional councelling /Kidney/Reproductive # Acute kidney injury hemodynamically mediated in setting of septic shock # Chronic kidney disease stage IIIB: Dr. Short clinic # Nephrotic syndrome secondary to diabetic nephropathy - monitor lab - avoid nephrotoxic agents - Strict Is&Os - Avoid hypotension - Glycemic control # acute complicated UTI - evident on urinalysis - currently on antibiotics - cultures ordered # H/O Endometrial cancer - S/p hysterectomy MSK Endocrine/Meatbolic # uncontrolled type 2 DM with a HGB A1c 13.7 - Accu-Cheks and aggressive ISS -Lantus Heme-Onc # Anemia of chronic disease - monitor lab Skin Lines Intubated 06/14 Right Femoral CVC 06/14 Lerner 06/14 Dips Fentanyl Versed Diprivan & Levophed off since AM 06/18 PUD PPX : Protonix VTE PPX : Lovenox Diet: Glucerna 30 mL/hour Goals of care discussed with the family for more than 29 minutes: Full code status Critical care time spent including chart review, discussing with the patient's family excluding procedures: 81 minutes spent Called family to update patient's clinical status but did not lift the call. Case discussed with Dr. Vernon. CPAP trial tomorrow. Plan discussed with: Other (family) My Orders My Orders Orders - YAZAN ALCALA Procedure Category Date Status Time Stool Occult Blood LAB 06/18/24 Logged 10:40 Dietary Evaluation Review Comments: 1. TPN per pharmacy, if NPO > 7 days if EN/GI not accessible, PO not medcially feasible. 2. TF Nepro @35ml/hr, providing 68 gPr and 1487 kcal in 24 hrs this sastifies pt's needs at 96% pro, and 115% kcal. 3. Offer CCHO-60, Renal Specific 70 g Pro restriction if pt is able to eat and passing a speech eval and not on dialysis, if pt is scheduled for dialysis, diet may be CCHO-60g, Renal Standard Diet Expected Outcomes/Goals: Meeting 75% of pt's needs, gradual wt loss. Date of Service: Jun 18, 2024 Billing Provider: MARIA TERESA VERNON MD Common Visit Codes: [id number] CARE 30-74 MIN, [id number] CARE-EACH +30MIN YAZAN ALCALA Jun 18, 2024 12:53 MARIA TERESA VERNON MD Jun 19, 2024 13:13
--- NOTE | 2024-06-18 13:18 | ECG ---
[facility] Test Date: 2024-06-14 Test Time: 04:29:13 Pat Name: CATRACHITO RAMIREZ Department: er Room: [address] [place] [address] A Gender: F Bioinformaticist: la : 1975 Requested By: CARLOS NICOLE Order Number: [id number] Reading MD: Jatinder Reed Measurements Intervals Horner Rate: 85 P: 46 AR: 141 QRS: 8 QRSD: 93 T: 133 QT: 368 QTc: 438 Interpretive Statements Sinus rhythm Probable left atrial enlargement Low voltage, precordial leads RSR' in V1 or V2, probably normal variant Abnormal T, consider ischemia, lateral leads Electronically Signed On 06-18-2024 21:07:12 PST by Jatinder Reed Please click the below link to view image of tracing.
[2024-06-18] MEDS: MEROPENEM 1GM IVPB 50 ML IV ONE (15:21)
--- NOTE | 2024-06-18 15:43 | DVHPN2 ---
Progress Note Date Seen: Jun 18, 2024 Medical Necessity Reason Pt with a Central, PICC or Fol: Yes The following are medically ne: Central Line, Lerner Catheter Reason for lerner catheter: Strict I&O Subjective Patient reports: Other (Patient remains intubated seen and examined in emergency room with RN bedside) Review of Systems: Deferred Objective vital signs Vital Sign Date Time Temp Pulse Resp B/P (MAP) Pulse Ox O2 Delivery O2 Flow Rate FiO2 06/18/24 15:00 116/82 06/18/24 14:43 90 18 99 30 06/18/24 13:30 99.9 99.9 06/18/24 07:53 Mechanical Ventilator+ 06/17/24 19:30 30 Total Intake and Output 06/17/24 06/17/24 06/18/24 14:59 22:59 06:59 Intake Total 726.375 ml 165.00 ml 166.875 ml Output Total 920 ml 900 ml Balance 726.375 ml -755.00 ml -733.125 ml medications Current Medications Medications Dose Ordered Sig/Yanna Route Start Time Stop Time Status Last Admin Dose Admin Propofol 100 ml @ 3.54 mls/hr Q24H IV 06/14/24 06:15 06/14/24 08:30 28.32 MLS/HR Fentanyl Citrate 250 ml @ 2.5 mls/hr Q24H IV 06/14/24 06:15 06/17/24 09:51 17.5 MLS/HR Docusate Sodium 100 mg BIDPRN PRN PO 06/14/24 11:15 Acetaminophen 650 mg Q6HP PRN PO 06/14/24 11:15 06/18/24 00:41 650 MG Midazolam HCl 50 ml @ 1 mls/hr Q24H IV 06/14/24 11:30 06/18/24 04:17 5 MLS/HR Vancomycin HCl 0 ml @ 0 mls/hr UD IV 06/14/24 11:30 Pantoprazole Sodium 40 mg DAILY IV 06/14/24 11:30 06/18/24 10:30 40 MG Iron Sucrose 110 ml @ 110 mls/hr DAILY@1200 IV 06/16/24 12:00 06/20/24 12:59 06/18/24 12:27 110 MLS/HR Norepinephrine Bitartrate 250 ml @ 3.75 mls/hr Q24H IV 06/16/24 14:45 06/17/24 12:36 3.75 MLS/HR Diagnostic Test (Pha) 1 strip Q6HR 06/16/24 18:00 06/18/24 12:14 1 STRIP Insulin Human Regular Q6HR SC 06/16/24 18:00 06/18/24 12:14 12 UNITS Dextrose 50 ml UD PRN IV 06/16/24 14:45 Meropenem 50 ml @ 17 mls/hr Q8HR IV 06/18/24 22:00 Examination: GENERAL:Abnormal, HEENT:Abnormal, MSK:Normal, NEURO:Abnormal laboratory and microbiology Laboratory Tests 06/18/24 03:18 Test 06/18/24 03:18 Range/Units Serum Glucose 262 H 74-106 mg/dL Microbiology Date/Time Source Procedure Growth Status 06/14/24 06:14 Blood Blood Culture - Preliminary NO GROWTH AFTER 72 HOURS OF INCUBATION. Resulted 06/14/24 06:02 Sputum Gram Stain - Final Complete 06/14/24 06:02 Sputum Respiratory Culture - Final Complete 06/14/24 05:56 Urine - Lerner Port Urine Culture - Final Complete Problem List/Assessment/Plan Problem List/Assessment/Plan Acute kidney injury hemodynamically mediated in setting of septic shock Chronic kidney disease stage IIIB: Dr. 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 TPN per pharmacy, if NPO > 7 days if EN/GI not accessible, PO not medcially feasible. 2. TF Nepro @35ml/hr, providing 68 gPr and 1487 kcal in 24 hrs this sastifies pt's needs at 96% pro, and 115% kcal. 3. Offer CCHO-60, Renal Specific 70 g Pro restriction if pt is able to eat and passing a speech eval and not on dialysis, if pt is scheduled for dialysis, diet may be CCHO-60g, Renal Standard Diet Expected Outcomes/Goals: Meeting 75% of pt's needs, gradual wt loss. RIGOBERTO SANTOS MD Jun 18, 2024 15:43
[2024-06-18] MEDS: FUROSEMIDE 40 MG/4 ML VIAL IV ONE (16:19)
[2024-06-18] MEDS: VANCOMYCIN 500mg/100mL 100 ML IV ONE (17:39)
[2024-06-18] MEDS: ENOXAPARIN SOD 40 MG/0.4 ML SYRINGE SC ONE (18:26)
[2024-06-18] MEDS: Glucerna 1.2 Cal 1Liter BOTTLE GT SCH (19:45)
[2024-06-18] MEDS: MEROPENEM 1GM IVPB 50 ML IV SCH (22:00)
[2024-06-19] VITALS (9 sets, daily range): BP systolic 91–149; BP diastolic 52–126; PULSE 72–97; RESP 18–20; O2SAT 94–99
[2024-06-19 05:31] LABS: Eosinophils # (auto) 0.4 10 ^3/uL (0-0.8); Hemoglobin 8.1 g/dL (12.2-16.2)
[2024-06-19 05:33] LABS: Basophils # (auto) 0.1 10 ^3/uL (0-0.2); Eosinophils % (auto) 3.4 % (0.0-7.0); Hematocrit 24.2 % (36.0-46.0); Lymphocytes # (auto) 1.4 10 ^3/uL (0.4-5.4); Lymphocytes % (auto) 12.7 % (10.0-50.0); Mean Corpuscular Hemoglobin 30.2 pg (28.0-32.0); Mean Corpuscular Hgb Conc. 33.4 g/dL (32.0-36.0); Mean Corpuscular Volume 90.4 fL (80.0-100.0); Neutrophils # (auto) 8.2 10 ^3/uL (1.6-8.6); Neutrophils % (auto) 73.9 % (37.0-80.0); Platelet Count (auto) 340 10^3/uL (140-450); Red Blood Cells 2.68 10^6/uL (4.0-5.20); Red Cell Distribution Width 13.3 % (11.8-14.3)
[2024-06-19 05:59] LABS: Alanine Aminotransferase 10 U/L (7-40); Alkaline Phosphatase 114 U/L (46-116); Anion Gap 11 (5-15); Aspartate Aminotransferase 21 U/L (13-40); BUN/Creatinine Ratio 20.4 (10.0-20.0); Calcium 8.9 mg/dL (8.7-10.4); Carbon Dioxide 23 mmol/L (20-31); Magnesium 1.9 mg/dL (1.6-2.6); Potassium 4.1 mmol/L (3.5-5.1); Sodium 142 mmol/L (136-145)
--- NOTE | 2024-06-19 06:15 | DVH ---
EXAM: XR Cervical Spine, 6 or More Views CLINICAL INDICATION: pna TECHNIQUE: Frontal, lateral, oblique and flexion/extension views of the cervical spine. COMPARISON: XY CHEST PORTABLE on DOS: 06/17/24, XY CHEST PORTABLE on DOS: 06/16/24, XY CHEST PORTABLE o n DOS: 06/14/24, XY CHEST XRAY 1 VIEW on DOS: 06/14/24, XY CHEST PORTABLE on DOS: 02/22/24 FINDINGS: VERTEBRAE: Unremarkable. No acute fracture. Normal alignment. No instability. DISC SPACES: No acute findings. No significant narrowing. SOFT TISSUES: Unremarkable. HEART: Cardiomegaly with mild congestion. TUBES, LINES AND DEVICES: Stable tubes and lines. Stable right-sided MediPort. OTHER FINDINGS: . .. . IMPRESSION: Cardiomegaly with mild congestion.
[2024-06-19 06:26] LABS: Albumin 2.8 g/dL (3.2-4.8); Bilirubin, Total 0.3 mg/dL (0.2-1.0); Blood Urea Nitrogen 32 mg/dL (9-23); Chloride 108 mmol/L (98-107); Glucose 254 mg/dL (74-106); Total Protein 5.3 g/dL (5.7-8.2)
[2024-06-19] MEDS: INSULIN LANTUS (GLARGINE) 1 /0.01ml (100units/ml) SC SCH (06:49)
[2024-06-19] MEDS: ACETAMINOPHEN 650 mg PER 20.3 mL UD PO PRN (07:34)
[2024-06-19] MEDS: ENOXAPARIN SOD 40 MG/0.4 ML SYRINGE SC SCH (07:35)
[2024-06-19] MEDS: FUROSEMIDE 40 MG/4 ML VIAL IV SCH (07:36)
[2024-06-19 08:52] LABS: Base Excess -0.6 mmol/L (-2.0-3.0)
--- NOTE | 2024-06-19 09:26 | DVHPN2 ---
Progress Note Date Seen: Jun 19, 2024 Medical Necessity Reason Pt with a Central, PICC or Fol: Yes The following are medically ne: Central Line, Lerner Catheter Reason for lerner catheter: Strict I&O Subjective Patient reports: Other (unknown) Review of Systems: Deferred Objective vital signs Vital Sign Date Time Temp Pulse Resp B/P (MAP) Pulse Ox O2 Delivery O2 Flow Rate FiO2 06/19/24 08:17 79 18 98 Mechanical Ventilator+ 30 30 06/19/24 07:36 125/63 06/19/24 07:34 100.2 06/17/24 19:30 30 Total Intake and Output 06/18/24 06/18/24 06/19/24 15:00 23:00 07:00 Intake Total 200.405 ml 398.1 ml 168.2 ml Output Total 800 ml 400 ml Balance 200.405 ml -401.9 ml -231.8 ml medications Current Medications Medications Dose Ordered Sig/Yanna Route Start Time Stop Time Status Last Admin Dose Admin Fentanyl Citrate 250 ml @ 2.5 mls/hr Q24H IV 06/14/24 06:15 06/19/24 06:37 2.5 MLS/HR Docusate Sodium 100 mg BIDPRN PRN PO 06/14/24 11:15 Midazolam HCl 50 ml @ 1 mls/hr Q24H IV 06/14/24 11:30 06/18/24 04:17 5 MLS/HR Vancomycin HCl 0 ml @ 0 mls/hr UD IV 06/14/24 11:30 Pantoprazole Sodium 40 mg DAILY IV 06/14/24 11:30 06/19/24 07:34 40 MG Iron Sucrose 110 ml @ 110 mls/hr DAILY@1200 IV 06/16/24 12:00 06/20/24 12:59 06/18/24 12:27 110 MLS/HR Diagnostic Test (Pha) 1 strip Q6HR 06/16/24 18:00 06/19/24 06:00 1 STRIP Insulin Human Regular Q6HR SC 06/16/24 18:00 06/19/24 06:00 6 UNITS Dextrose 50 ml UD PRN IV 06/16/24 14:45 Meropenem 50 ml @ 17 mls/hr Q8HR IV 06/18/24 22:00 06/19/24 06:00 17 MLS/HR Furosemide 40 mg DAILY IV 06/19/24 10:00 06/19/24 07:36 40 MG Dexmedetomidine HCl 400 mcg/ Dextrose 100 ml @ 5.9 mls/hr [id number] IV 06/18/24 17:30 06/18/24 19:09 5.9 MLS/HR Enoxaparin Sodium 40 mg DAILY SC 06/19/24 10:00 06/19/24 07:35 40 MG Insulin Glargine 15 units QAM SC 06/19/24 07:00 06/19/24 06:49 15 UNITS Enteral Nutritional Formula 1,000 ml 30ML/HR GT 06/18/24 17:45 06/18/24 19:45 1,000 ML Acetaminophen 650 mg Q6HP PRN PO 06/19/24 07:30 06/19/24 07:34 650 MG Examination: GENERAL:Abnormal, LUNGS:Abnormal, NEURO:Abnormal laboratory and microbiology Laboratory Tests 06/19/24 05:13 Test 06/19/24 05:13 Range/Units Serum Glucose 254 H 74-106 mg/dL Microbiology Date/Time Source Procedure Growth Status 06/14/24 06:14 Blood Blood Culture - Final NO GROWTH AFTER 5 DAYS OF INCUBATION. Complete 06/14/24 06:02 Sputum Gram Stain - Final Complete 06/14/24 06:02 Sputum Respiratory Culture - Final Complete 06/14/24 05:56 Urine - Lerner Port Urine Culture - Final Complete Problem List/Assessment/Plan Problem List/Assessment/Plan Acute kidney injury hemodynamically mediated in setting of septic shock Chronic kidney disease stage IIIB: Dr. Short [facility] diabetic nephropathy History of coronary artery disease with diastolic heart failure Septic shock Urinary tract infection Acute respiratory failure anemia endometrial Ca Recommendations cxr noted cpap trial Renal function stable Gentle Lasix IV Plan discussed with: Other My Orders My Orders Orders - RIGOBERTO SANTOS MD Procedure Category Date Status Time Furosemide Injection PHA 06/19/24 In Process (Lasix Injection) 10:00 Dietary Evaluation Review Comments: 1. TPN per pharmacy, if NPO > 7 days if EN/GI not accessible, PO not medcially feasible. 2. TF Nepro @35ml/hr, providing 68 gPr and 1487 kcal in 24 hrs this sastifies pt's needs at 96% pro, and 115% kcal. 3. Offer CCHO-60, Renal Specific 70 g Pro restriction if pt is able to eat and passing a speech eval and not on dialysis, if pt is scheduled for dialysis, diet may be CCHO-60g, Renal Standard Diet Expected Outcomes/Goals: Meeting 75% of pt's needs, gradual wt loss. RIGOBERTO SANTOS MD Jun 19, 2024 09:26
--- NOTE | 2024-06-19 11:07 | DVHPNRES ---
Progress Note Date Seen: Jun 19, 2024 Resident Creating Document: YAZAN ALCALA RESIDENT Medical Necessity Reason Pt with a Central, PICC or Fol: Yes The following are medically ne: Central Line, Lerner Catheter Reason for lerner catheter: Strict I&O Subjective Review of Systems CATRACHITO RAMIREZ is a 49-year-old female with a PMH of CHF, CVA, type 2 DM, HLD, HTN, endometrial cancer status post hysterectomy, CABG presented to the ED with the complaints of generalized weakness. Patient seen and examined at the bedside. Extubated today noon. Reported no new complaints. Lungs are congested, given lasix20 mg. Monitoring continuously. Bedside swallow eval tomorrow and then diet. Objective vital signs Vital Sign Date Time Temp Pulse Resp B/P (MAP) Pulse Ox O2 Delivery O2 Flow Rate FiO2 06/19/24 10:30 99.8 87 21 144/94 (111) 96 99.8 06/19/24 09:38 30 06/19/24 08:17 Mechanical Ventilator+ 06/17/24 19:30 30 Total Intake and Output 06/18/24 06/18/24 06/19/24 15:00 23:00 07:00 Intake Total 200.405 ml 398.1 ml 168.2 ml Output Total 800 ml 400 ml Balance 200.405 ml -401.9 ml -231.8 ml medications Current Medications Medications Dose Ordered Sig/Yanna Route Start Time Stop Time Status Last Admin Dose Admin Fentanyl Citrate 250 ml @ 2.5 mls/hr Q24H IV 06/14/24 06:15 06/19/24 06:37 2.5 MLS/HR Docusate Sodium 100 mg BIDPRN PRN PO 06/14/24 11:15 Vancomycin HCl 0 ml @ 0 mls/hr UD IV 06/14/24 11:30 Pantoprazole Sodium 40 mg DAILY IV 06/14/24 11:30 06/19/24 07:34 40 MG Iron Sucrose 110 ml @ 110 mls/hr DAILY@1200 IV 06/16/24 12:00 06/20/24 12:59 06/18/24 12:27 110 MLS/HR Diagnostic Test (Pha) 1 strip Q6HR 06/16/24 18:00 06/19/24 06:00 1 STRIP Insulin Human Regular Q6HR SC 06/16/24 18:00 06/19/24 06:00 6 UNITS Dextrose 50 ml UD PRN IV 06/16/24 14:45 Meropenem 50 ml @ 17 mls/hr Q8HR IV 06/18/24 22:00 06/19/24 06:00 17 MLS/HR Furosemide 40 mg DAILY IV 06/19/24 10:00 06/19/24 07:36 40 MG Dexmedetomidine HCl 400 mcg/ Dextrose 100 ml @ 5.9 mls/hr [id number] IV 06/18/24 17:30 06/18/24 19:09 5.9 MLS/HR Enoxaparin Sodium 40 mg DAILY SC 06/19/24 10:00 06/19/24 07:35 40 MG Insulin Glargine 15 units QAM SC 06/19/24 07:00 06/19/24 06:49 15 UNITS Enteral Nutritional Formula 1,000 ml 30ML/HR GT 06/18/24 17:45 06/18/24 19:45 1,000 ML Acetaminophen 650 mg Q6HP PRN PO 06/19/24 07:30 06/19/24 07:34 650 MG Examination Pt is lying on bed General Appearance: alert, oriented, mild distress, extubated HEENT: Atraumatic, Mucous membranes moist/pink Respiratory: Clear to auscultation, Normal air movement, harsh voice Cardiovascular: Regular rate, Normal S1, Normal S2, No murmurs Abdominal: hypoactive bowel sounds, no distention, no hepatosplenomegaly Extremities: 1+ edema BLE, Normal pulses, No tenderness/swelling Skin: No Significant rash, except surgical wound Neuro: mildly awake, limited exam laboratory and microbiology Laboratory Tests 06/19/24 05:13 Test 06/19/24 05:13 Range/Units Serum Glucose 254 H 74-106 mg/dL Microbiology Date/Time Source Procedure Growth Status 06/14/24 06:14 Blood Blood Culture - Final NO GROWTH AFTER 5 DAYS OF INCUBATION. Complete 06/14/24 06:02 Sputum Gram Stain - Final Complete 06/14/24 06:02 Sputum Respiratory Culture - Final Complete 06/14/24 05:56 Urine - Lerner Port Urine Culture - Final Complete Labs and/or images reviewed: Labs reviewed by me, Image(s) reviewed by me Problem List/Assessment/Plan Problem List/Assessment/Plan Neurology # Mechanical fall without LOC # Acute toxic or metabolic encephalopathy likely due to sepsis # H/o CVA - CT showed no acute changes Cardiology # HTN # Shock likely due to sepsis from UTI vs PNA # HLD # H/O SD # s/p CABG # ? Acute on chronic diastolic CHF - BNP wnl, - Echo showed EF 55% with a grade 2 diastolic dysfunction - currently off Levophed since AM 06/18 - currently receiving vancomycin and meropenem - ordered pancultures, - monitor lab Respiratory # Acute hypoxic respiratory failure likely due to sepsis s/p intubation- Extubated 06/19 # ? Acute G+/- bacterial PNA - CXR showed increased left basilar opacities; pulmonary vascular congestion. - Extubated 06/19 - currently ICU status - fentanyl, Versed, propofol, Levophed off since a.m. 07/16 - currently receiving vancomycin and meropenem - Monitor GI/Liver/ Abdomen # Morbid Obesity BMI 44.7 - Nutrional councelling /Kidney/Reproductive # Acute kidney injury hemodynamically mediated in setting of septic shock # Chronic kidney disease stage IIIB # Nephrotic syndrome secondary to diabetic nephropathy - monitor lab - avoid nephrotoxic agents - Strict Is&Os - Avoid hypotension - Glycemic control # acute complicated UTI - evident on urinalysis - currently on antibiotics - cultures ordered # H/O Endometrial cancer - S/p hysterectomy MSK Endocrine/Meatbolic # uncontrolled type 2 DM with a HGB A1c 13.7 - Accu-Cheks and aggressive ISS - Lantus Heme-Onc # Anemia of chronic disease - monitor lab Skin # unspecified sacral ulcer - wound consult Lines Intubated 06/14 Extubated 06/19 Right Femoral CVC 06/14 Lerner 06/14 Dips Fentanyl , Versed off 07/16 Diprivan & Levophed off since AM 06/18 PUD PPX : Protonix VTE PPX : Lovenox Diet: Glucerna 30 mL/hour, Bedside swallow eval tomorrow and then diet. Goals of care discussed with the family for more than 29 minutes: Full code status Critical care time spent including chart review, discussing with the patient's family excluding procedures: 54 minutes spent Called family to update patient's clinical status but did not lift the call. Case discussed with Dr. Vernon. Extubated 06/19. Plan discussed with: Patient, Daughter, Other (family) My Orders My Orders Orders - YAZAN ALCALA RESIDENT Procedure Category Date Status Time D5w 5% (Dextrose 5%) PHA 06/18/24 In Process W/Dexmedetomidine 17:30 Enoxaparin Sodium PHA 06/19/24 In Process (Lovenox) 10:00 Chest Xray 1 View XY 06/19/24 Resulted 04:00 Abg W/ Co-Ox RT 06/19/24 Logged 04:00 Insulin Lantus PHA 06/19/24 In Process (Glargine) (Lantus) 07:00 Nutritional PHA 06/18/24 In Process Supplements (Glucerna 17:45 Dietary Evaluation Review Comments: 1. TPN per pharmacy, if NPO > 7 days if EN/GI not accessible, PO not medcially feasible. 2. TF Nepro @35ml/hr, providing 68 gPr and 1487 kcal in 24 hrs this sastifies pt's needs at 96% pro, and 115% kcal. 3. Offer CCHO-60, Renal Specific 70 g Pro restriction if pt is able to eat and passing a speech eval and not on dialysis, if pt is scheduled for dialysis, diet may be CCHO-60g, Renal Standard Diet Expected Outcomes/Goals: Meeting 75% of pt's needs, gradual wt loss. Date of Service: Jun 19, 2024 Billing Provider: MARIA TERESA VERNON MD Common Visit Codes: [id number] CARE 30-74 MIN YAZAN ALCALA RESIDENT Jun 19, 2024 11:07 MARIA TERESA VERNON MD Jun 20, 2024 17:13
[2024-06-19] MEDS: FUROSEMIDE 20 MG/2 ML VIAL IV ONE (14:17)
[2024-06-19] MEDS: VANCOMYCIN 500mg/100mL 100 ML IV SCH (20:05)
[2024-06-20] VITALS (8 sets, daily range): BP systolic 126–146; BP diastolic 66–76; PULSE 86–89; RESP 16–25; TEMP 98.1–98.4; O2SAT 95–100
--- NOTE | 2024-06-20 05:11 | DVH ---
CHEST RADIOGRAPH Indication: pna Technique: Single frontal view of the chest was obtained Comparison: XY CHEST XRAY 1 VIEW on DOS: 06/19/24 FINDINGS: Lines and Tubes: There is a right infusion catheter with its tip terminating in the right atrium. Lungs: Bilateral opacities, similar to prior study. Pleura: No effusion. No pneumothorax. Cardiomediastinal contours: Unremarkable Bones: No acute osseous abnormality. Status post median sternotomy. IMPRESSION: 1. Bilateral opacities which may reflect congestion. No significant interval change.
[2024-06-20 06:56] LABS: Albumin 3.5 g/dL (3.2-4.8); Anion Gap 12 (5-15); Aspartate Aminotransferase 20 U/L (13-40); BUN/Creatinine Ratio 16.9 (10.0-20.0); Calcium 9.3 mg/dL (8.7-10.4); Carbon Dioxide 24 mmol/L (20-31); Magnesium 1.9 mg/dL (1.6-2.6); Sodium 144 mmol/L (136-145)
[2024-06-20 06:57] LABS: Total Protein 6.5 g/dL (5.7-8.2)
[2024-06-20] MEDS: ACETAMINOPHEN 650 MG RECT SUPP PR PRN (06:59)
[2024-06-20 07:01] LABS: Basophils # (auto) 0.1 10 ^3/uL (0-0.2); Basophils % (auto) 0.7 % (0.0-2.0); Eosinophils # (auto) 0.4 10 ^3/uL (0-0.8); Eosinophils % (auto) 3.1 % (0.0-7.0); Hematocrit 26.4 % (36.0-46.0); Hemoglobin 8.7 g/dL (12.2-16.2); Lymphocytes % (auto) 8.7 % (10.0-50.0); Mean Corpuscular Hemoglobin 29.9 pg (28.0-32.0); Mean Corpuscular Volume 90.7 fL (80.0-100.0); Monocytes # (auto) 0.6 10 ^3/uL (0-1.3); Monocytes % (auto) 5.4 % (0.0-12.0); Neutrophils # (auto) 9.7 10 ^3/uL (1.6-8.6); Neutrophils % (auto) 82.1 % (37.0-80.0); Nucleated Red Blood Cells % 0.1 %; Platelet Count (auto) 428 10^3/uL (140-450); Red Blood Cells 2.91 10^6/uL (4.0-5.20); Red Cell Distribution Width 13.5 % (11.8-14.3); White Blood Cell 11.8 10^3/uL (4.4-10.8)
[2024-06-20 07:04] LABS: Alanine Aminotransferase < 9 U/L (7-40); Alkaline Phosphatase 119 U/L (46-116); Bilirubin, Total 0.2 mg/dL (0.2-1.0); Blood Urea Nitrogen 30 mg/dL (9-23); Chloride 108 mmol/L (98-107); Glucose 256 mg/dL (74-106); Potassium 3.4 mmol/L (3.5-5.1)
[2024-06-20] MEDS: POTASSIUM CHL 20MEQ/100ML 100 ML IV ONE (09:07)
[2024-06-20] MEDS: POTASSIUM CHLORIDE 40 MEQ, LIDOCAINE 1% (LOCAL ANESTH.) 4 ML in SODIUM CHL 0.9% 250 ML IV ONE (12:00)
--- NOTE | 2024-06-20 13:34 | DVHPNRES ---
Progress Note Date Seen: Jun 20, 2024 Resident Creating Document: YAZAN ALCALA RESIDENT Medical Necessity Reason Pt with a Central, PICC or Fol: Yes The following are medically ne: Central Line, Lerner Catheter Reason for lerner catheter: Strict I&O Subjective Review of Systems CATRACHITO RAMIREZ is a 49-year-old female with a PMH of CHF, CVA, type 2 DM, HLD, HTN, endometrial cancer status post hysterectomy, CABG presented to the ED with the complaints of generalized weakness. Patient seen and examined at the bedside. Extubated yesterday noon. Reported no new complaints except pain in the legs for which we added Dilaudid, [place] and gabapentin. Monitoring continuously. Currently on telemetry unit. Patient reports: No new complaints, Feels better Objective vital signs Vital Sign Date Time Temp Pulse Resp B/P (MAP) Pulse Ox O2 Delivery O2 Flow Rate FiO2 06/20/24 12:00 84 06/20/24 11:17 114/46 06/20/24 11:00 14 98 06/20/24 08:31 Nasal Cannula* 3 32 06/20/24 08:00 98.2 Total Intake and Output 06/19/24 06/19/24 06/20/24 15:00 23:00 07:00 Intake Total 110 ml 210 ml 51 ml Output Total 1400 ml 600 ml Balance 110 ml -1190 ml -549 ml medications Current Medications Medications Dose Ordered Sig/Yanna Route Start Time Stop Time Status Last Admin Dose Admin Docusate Sodium 100 mg BIDPRN PRN PO 06/14/24 11:15 Vancomycin HCl 0 ml @ 0 mls/hr UD IV 06/14/24 11:30 Pantoprazole Sodium 40 mg DAILY IV 06/14/24 11:30 06/20/24 11:14 40 MG Diagnostic Test (Pha) 1 strip Q6HR 06/16/24 18:00 06/20/24 12:25 1 STRIP Insulin Human Regular Q6HR SC 06/16/24 18:00 06/20/24 12:17 9 UNITS Dextrose 50 ml UD PRN IV 06/16/24 14:45 Meropenem 50 ml @ 17 mls/hr Q8HR IV 06/18/24 22:00 06/20/24 06:06 17 MLS/HR Furosemide 40 mg DAILY IV 06/19/24 10:00 06/20/24 11:17 40 MG Enoxaparin Sodium 40 mg DAILY SC 06/19/24 10:00 06/20/24 11:15 40 MG Insulin Glargine 15 units QAM SC 06/19/24 07:00 06/20/24 06:54 15 UNITS Vancomycin HCl 100 ml @ 200 mls/hr Q24H IV 06/19/24 20:00 06/19/24 20:05 200 MLS/HR Acetaminophen 650 mg Q6HP PRN [place] 06/20/24 06:00 06/20/24 06:59 650 MG Examination Pt is lying on bed General Appearance: alert, oriented, mild distress HEENT: Atraumatic, Mucous membranes moist/pink Respiratory: Clear to auscultation, Normal air movement, Cardiovascular: Regular rate, Normal S1, Normal S2, No murmurs Abdominal: hypoactive bowel sounds, no distention, no hepatosplenomegaly Extremities: 1+ edema BLE, Normal pulses, No tenderness/swelling Skin: No Significant rash, except surgical wound Neuro: Normal speech, no significant sensory motor deficits except mild weakness due to past CVA laboratory and microbiology Laboratory Tests 06/20/24 06:09 Test 06/20/24 06:09 Range/Units Serum Glucose 256 H 74-106 mg/dL Microbiology Date/Time Source Procedure Growth Status 06/14/24 06:14 Blood Blood Culture - Final NO GROWTH AFTER 5 DAYS OF INCUBATION. Complete 06/14/24 06:02 Sputum Gram Stain - Final Complete 06/14/24 06:02 Sputum Respiratory Culture - Final Complete 06/14/24 05:56 Urine - Lerner Port Urine Culture - Final Complete Labs and/or images reviewed: Labs reviewed by me, Image(s) reviewed by me Problem List/Assessment/Plan Problem List/Assessment/Plan Neurology # Mechanical fall without LOC # Acute toxic or metabolic encephalopathy likely due to sepsis # H/o CVA - CT showed no acute changes Cardiology # HTN # Shock likely due to sepsis from UTI vs PNA # HLD # H/O [place] # s/p CABG # ? Acute on chronic diastolic CHF - BNP wnl, - Echo showed EF 55% with a grade 2 diastolic dysfunction - currently receiving meropenem - Dc vancomycin 06/20 - ordered pancultures, negative - monitor lab -Lasix p.o. 40 mg Respiratory # Acute hypoxic respiratory failure likely due to sepsis s/p intubation- Extubated 2/4 # ? Acute G+/- bacterial PNA - CXR showed increased left basilar opacities; pulmonary vascular congestion. 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 - monitor lab - avoid nephrotoxic agents - Strict Is&Os - Avoid hypotension - Glycemic control # acute complicated UTI - evident on urinalysis - currently on antibiotics - cultures ordered, negative # H/O Endometrial cancer - S/p hysterectomy MSK Endocrine/Meatbolic # uncontrolled type 2 DM with a HGB A1c 13.7 - Accu-Cheks and aggressive ISS - Lantus Heme-Onc # Anemia of chronic disease - monitor lab Skin Lines Intubated 06/14 Extubated 06/19 Right Femoral CVC 06/14 Lerner 06/14 Dips Fentanyl , Versed off 07/16 Diprivan & Levophed off since AM 06/18 PUD PPX : Protonix VTE PPX : Lovenox Diet: Diabetic diet Goals of care discussed with the family for more than 29 minutes: Full code status Critical care time spent including chart review, discussing with the patient's family excluding procedures: 54 minutes spent Case discussed with Dr. Vernon. Extubated 06/19. Plan discussed with: Patient, Daughter My Orders My Orders Orders - YAZAN ALCALA RESIDENT Procedure Category Date Status Time Chest Xray 1 View XY 06/20/24 Resulted 04:00 Abg W/ Co-Ox RT 06/20/24 Logged 04:00 Swallow Eval Follow Up ANGELA 06/20/24 In Process 07:29 * Swallow Request ST 06/20/24 Transmitted 08:09 Dietary Evaluation Review Comments: 1. TPN per pharmacy, if NPO > 7 days if EN/GI not accessible, PO not medcially feasible. 2. TF Nepro @35ml/hr, providing 68 gPr and 1487 kcal in 24 hrs this sastifies pt's needs at 96% pro, and 115% kcal. 3. Offer CCHO-60, Renal Specific 70 g Pro restriction if pt is able to eat and passing a speech eval and not on dialysis, if pt is scheduled for dialysis, diet may be CCHO-60g, Renal Standard Diet Expected Outcomes/Goals: Meeting 75% of pt's needs, gradual wt loss. Date of Service: Jun 20, 2024 Billing Provider: MARIA TERESA VERNON MD Common Visit Codes: [id number] CARE 30-74 MIN YAZAN ALCALA RESIDENT Jun 20, 2024 13:33 MARIA TERESA VERNON MD Jun 21, 2024 12:16
--- NOTE | 2024-06-20 15:23 | DVHPN2 ---
Progress Note Date Seen: Jun 20, 2024 Medical Necessity Reason Pt with a Central, PICC or Fol: Yes The following are medically ne: Central Line, Lerner Catheter Reason for lerner catheter: Strict I&O Subjective Patient reports: Feels better, Other Review of Systems: Deferred Objective vital signs Vital Sign Date Time Temp Pulse Resp B/P (MAP) Pulse Ox O2 Delivery O2 Flow Rate FiO2 06/20/24 14:35 98.1 89 18 139/69 (92) 96 98.1 06/20/24 08:31 Nasal Cannula* 3 32 Total Intake and Output 06/19/24 06/19/24 06/20/24 15:00 23:00 07:00 Intake Total 110 ml 210 ml 51 ml Output Total 1400 ml 600 ml Balance 110 ml -1190 ml -549 ml medications Current Medications Medications Dose Ordered Sig/Yanna Route Start Time Stop Time Status Last Admin Dose Admin Docusate Sodium 100 mg BIDPRN PRN PO 06/14/24 11:15 Vancomycin HCl 0 ml @ 0 mls/hr UD IV 06/14/24 11:30 Pantoprazole Sodium 40 mg DAILY IV 06/14/24 11:30 06/20/24 11:14 40 MG Diagnostic Test (Pha) 1 strip Q6HR 06/16/24 18:00 06/20/24 12:25 1 STRIP Insulin Human Regular Q6HR SC 06/16/24 18:00 06/20/24 12:17 9 UNITS Dextrose 50 ml UD PRN IV 06/16/24 14:45 Meropenem 50 ml @ 17 mls/hr Q8HR IV 06/18/24 22:00 06/20/24 06:06 17 MLS/HR Furosemide 40 mg DAILY IV 06/19/24 10:00 06/20/24 11:17 40 MG Enoxaparin Sodium 40 mg DAILY SC 06/19/24 10:00 06/20/24 11:15 40 MG Insulin Glargine 15 units QAM SC 06/19/24 07:00 06/20/24 06:54 15 UNITS Vancomycin HCl 100 ml @ 200 mls/hr Q24H IV 06/19/24 20:00 06/19/24 20:05 200 MLS/HR Acetaminophen 650 mg Q6HP PRN [place] 06/20/24 06:00 06/20/24 06:59 650 MG Examination: GENERAL:Normal, HEENT:Normal, NECK:Normal, LUNGS:Abnormal, CVS:Normal, ABDOMEN:Normal, MSK:Normal, SKIN:Normal, NEURO:Normal, :Normal laboratory and microbiology Laboratory Tests 06/20/24 06:09 Test 06/20/24 06:09 Range/Units Serum Glucose 256 H 74-106 mg/dL Microbiology Date/Time Source Procedure Growth Status 06/14/24 06:14 Blood Blood Culture - Final NO GROWTH AFTER 5 DAYS OF INCUBATION. Complete 06/14/24 06:02 Sputum Gram Stain - Final Complete 06/14/24 06:02 Sputum Respiratory Culture - Final Complete 06/14/24 05:56 Urine - Lerner Port Urine Culture - Final Complete Problem List/Assessment/Plan Problem List/Assessment/Plan Acute kidney injury hemodynamically mediated in setting of septic shock Chronic kidney disease stage IIIB: Dr. Short [facility] diabetic nephropathy History of coronary artery disease with diastolic heart failure Septic shock Urinary tract infection Acute respiratory failure anemia endometrial Ca Recommendations Extubated On nasal cannula Reduce Lasix dose Plan discussed with: Patient Dietary Evaluation Review Comments: 1. TPN per pharmacy, if NPO > 7 days if EN/GI not accessible, PO not medcially feasible. 2. TF Nepro @35ml/hr, providing 68 gPr and 1487 kcal in 24 hrs this sastifies pt's needs at 96% pro, and 115% kcal. 3. Offer CCHO-60, Renal Specific 70 g Pro restriction if pt is able to eat and passing a speech eval and not on dialysis, if pt is scheduled for dialysis, diet may be CCHO-60g, Renal Standard Diet Expected Outcomes/Goals: Meeting 75% of pt's needs, gradual wt loss. RIGOBERTO SANTOS MD Jun 20, 2024 15:23
[2024-06-20] MEDS: HYDROcodone-ACET 5/325MG TAB PO PRN (18:16)
[2024-06-20] MEDS: GABAPENTIN 300 MG CAP PO SCH (18:16)
[2024-06-20] MEDS: HYDROMORPHONE HCL 1 MG/ML INJ IV PRN (22:14)
[2024-06-21] VITALS (8 sets, daily range): BP systolic 109–135; BP diastolic 59–86; PULSE 81–86; RESP 16–20; TEMP 97.7–98.8; O2SAT 98–100
[2024-06-21] MEDS: MEROPENEM 1GM IVPB 50 ML IV SCH (00:59)
--- NOTE | 2024-06-21 07:05 | DVH ---
CHEST RADIOGRAPH Indication: pna Technique: Single frontal view of the chest was obtained Comparison: XY CHEST XRAY 1 VIEW on DOS: 06/20/24 FINDINGS: Lines and Tubes: There is a right infusion catheter with its tip terminating in the right atrium. Sta tus post median sternotomy. Lungs: Bibasilar opacities. Pleura: No effusion. No pneumothorax. Cardiomediastinal contours: Unremarkable Bones: No acute osseous abnormality. IMPRESSION: 1. Bibasilar opacities.
[2024-06-21 07:25] LABS: Basophils # (auto) 0.1 10 ^3/uL (0-0.2); Basophils % (auto) 0.7 % (0.0-2.0); Eosinophils # (auto) 0.4 10 ^3/uL (0-0.8); Eosinophils % (auto) 5.2 % (0.0-7.0); Hematocrit 25.5 % (36.0-46.0); Hemoglobin 8.5 g/dL (12.2-16.2); Lymphocytes # (auto) 1.3 10 ^3/uL (0.4-5.4); Lymphocytes % (auto) 15.4 % (10.0-50.0); Mean Corpuscular Hemoglobin 30.4 pg (28.0-32.0); Mean Corpuscular Hgb Conc. 33.2 g/dL (32.0-36.0); Mean Corpuscular Volume 91.3 fL (80.0-100.0); Monocytes # (auto) 0.7 10 ^3/uL (0-1.3); Monocytes % (auto) 8.2 % (0.0-12.0); Neutrophils # (auto) 5.9 10 ^3/uL (1.6-8.6); Neutrophils % (auto) 70.5 % (37.0-80.0); Platelet Count (auto) 449 10^3/uL (140-450); Red Cell Distribution Width 13.4 % (11.8-14.3); White Blood Cell 8.4 10^3/uL (4.4-10.8)
[2024-06-21 07:43] LABS: Albumin 3.3 g/dL (3.2-4.8); Alkaline Phosphatase 99 U/L (46-116); Anion Gap 9 (5-15); Aspartate Aminotransferase 14 U/L (13-40); BUN/Creatinine Ratio 15.1 (10.0-20.0); Carbon Dioxide 24 mmol/L (20-31); Chloride 106 mmol/L (98-107); Magnesium 1.9 mg/dL (1.6-2.6); Potassium 3.9 mmol/L (3.5-5.1); Sodium 139 mmol/L (136-145); Total Protein 6.2 g/dL (5.7-8.2)
[2024-06-21 07:47] LABS: Alanine Aminotransferase < 9 U/L (7-40); Bilirubin, Total 0.2 mg/dL (0.2-1.0); Blood Urea Nitrogen 27 mg/dL (9-23); Glucose 200 mg/dL (74-106)
--- NOTE | 2024-06-21 09:45 | DVHPN2 ---
Progress Note Date Seen: Jun 21, 2024 Medical Necessity Reason Pt with a Central, PICC or Fol: Yes The following are medically ne: Central Line, Lerner Catheter Reason for lerner catheter: Strict I&O Subjective Patient reports: No new complaints, Feels better Review of Systems: Deferred Objective vital signs Vital Sign Date Time Temp Pulse Resp B/P (MAP) Pulse Ox O2 Delivery O2 Flow Rate FiO2 06/21/24 08:37 97.7 84 19 127/76 (93) 98 97.7 06/20/24 20:00 Nasal Cannula* 3 32 Total Intake and Output 06/20/24 06/20/24 06/21/24 15:00 23:00 07:00 Intake Total 372 ml 120 ml 450 ml Output Total 150 ml 1000 ml Balance 372 ml -30 ml -550 ml medications Current Medications Medications Dose Ordered Sig/Yanna Route Start Time Stop Time Status Last Admin Dose Admin Docusate Sodium 100 mg BIDPRN PRN PO 06/14/24 11:15 Diagnostic Test (Pha) 1 strip Q6HR 06/16/24 18:00 06/21/24 06:06 1 STRIP Insulin Human Regular Q6HR SC 06/16/24 18:00 06/21/24 06:13 6 UNITS Dextrose 50 ml UD PRN IV 06/16/24 14:45 Enoxaparin Sodium 40 mg DAILY SC 06/19/24 10:00 06/20/24 11:15 40 MG Insulin Glargine 15 units QAM SC 06/19/24 07:00 06/21/24 06:12 15 UNITS Acetaminophen 650 mg Q6HP PRN [place] 06/20/24 06:00 06/20/24 06:59 650 MG Furosemide 40 mg DAILY PO 06/21/24 10:00 Gabapentin 600 mg BID PO 06/20/24 22:00 06/20/24 18:16 600 MG Hydromorphone HCl 0.5 mg Q4HPRN PRN IV 06/20/24 17:30 06/20/24 22:14 0.5 MG Acetaminophen/ Hydrocodone Bitart 1 tab Q6HPRN PRN PO 06/20/24 17:30 06/21/24 01:15 1 TAB Meropenem 50 ml @ 17 mls/hr Q8H IV 06/21/24 01:00 06/21/24 00:59 17 MLS/HR Examination: GENERAL:Normal, HEENT:Normal, NECK:Normal, LUNGS:Abnormal, CVS:Normal, ABDOMEN:Normal, MSK:Normal, SKIN:Normal, NEURO:Normal, :Normal laboratory and microbiology Laboratory Tests 06/21/24 06:04 Test 06/21/24 06:04 Range/Units Serum Glucose 200 H 74-106 mg/dL Microbiology Date/Time Source Procedure Growth Status 06/14/24 06:14 Blood Blood Culture - Final NO GROWTH AFTER 5 DAYS OF INCUBATION. Complete 06/14/24 06:02 Sputum Gram Stain - Final Complete 06/14/24 06:02 Sputum Respiratory Culture - Final Complete 06/14/24 05:56 Urine - Lerner [place] Urine Culture - Final Complete Problem List/Assessment/Plan Problem List/Assessment/Plan Acute kidney injury hemodynamically mediated in setting of septic shock Chronic kidney disease stage IIIB: Dr. Short [facility] diabetic nephropathy History of coronary artery disease with diastolic heart failure Septic shock Urinary tract infection Acute respiratory failure anemia endometrial Ca Recommendations stable renal function Reduce Lasix dose Plan discussed with: Patient Dietary Evaluation Review Comments: 1. Estimated needs is based on CKD3B, 2. TPN per pharmacy if NPO > 7 days 3. TF Nepro @35ml/hr providing 68g pro and 1487 kcal if EN/GI accessible 3 when pt is off vent and passing speech eval, advance to CCHO-60 Renal specic with 60g protein restriction, or CCHO-60 Renal Standard Diet if pt is on scheduled routine dialysis. Expected Outcomes/Goals: Gradual Wt loss, improved lab values RIGOBERTO SANTOS MD Jun 21, 2024 09:44
[2024-06-21] MEDS ORDERED: FUROSEMIDE 20 MG/2 ML VIAL IV SCH (10:00)
[2024-06-21] MEDS: FUROSEMIDE 40 MG TAB PO SCH (10:11)
--- NOTE | 2024-06-21 10:58 | DVHPNRES ---
Progress Note Date Seen: Jun 21, 2024 Resident Creating Document: YAZAN ALCALA RESIDENT Medical Necessity Reason Pt with a Central, PICC or Fol: Yes The following are medically ne: Central Line, Lerner Catheter Reason for lerner catheter: Strict I&O Subjective Review of Systems CATRACHITO RAMIREZ is a 49-year-old female with a PMH of CHF, CVA, type 2 DM, HLD, HTN, endometrial cancer status post hysterectomy, CABG presented to the ED with the complaints of generalized weakness. Patient seen and examined at the bedside. Reported no new complaints except pain in the legs which improved since yesterday. Monitoring continuously. Currently on telemetry unit. Patient reports: No new complaints, Feels better Objective vital signs Vital Sign Date Time Temp Pulse Resp B/P (MAP) Pulse Ox O2 Delivery O2 Flow Rate FiO2 06/21/24 10:12 84 19 127/76 06/21/24 08:37 97.7 98 97.7 06/20/24 20:00 Nasal Cannula* 3 32 Total Intake and Output 06/20/24 06/20/24 06/21/24 15:00 23:00 07:00 Intake Total 372 ml 120 ml 450 ml Output Total 150 ml 1000 ml Balance 372 ml -30 ml -550 ml medications Current Medications Medications Dose Ordered Sig/Yanna Route Start Time Stop Time Status Last Admin Dose Admin Docusate Sodium 100 mg BIDPRN PRN PO 06/14/24 11:15 Diagnostic Test (Pha) 1 strip Q6HR 06/16/24 18:00 06/21/24 06:06 1 STRIP Insulin Human Regular Q6HR SC 06/16/24 18:00 06/21/24 06:13 6 UNITS Dextrose 50 ml UD PRN IV 06/16/24 14:45 Enoxaparin Sodium 40 mg DAILY SC 06/19/24 10:00 06/21/24 10:11 40 MG Insulin Glargine 15 units QAM SC 06/19/24 07:00 06/21/24 06:12 15 UNITS Acetaminophen 650 mg Q6HP PRN MT 06/20/24 06:00 06/20/24 06:59 650 MG Furosemide 40 mg DAILY PO 06/21/24 10:00 06/21/24 10:11 40 MG Gabapentin 600 mg BID PO 06/20/24 22:00 06/21/24 10:11 600 MG Hydromorphone HCl 0.5 mg Q4HPRN PRN IV 06/20/24 17:30 06/21/24 10:12 0.5 MG Acetaminophen/ Hydrocodone Bitart 1 tab Q6HPRN PRN PO 06/20/24 17:30 06/21/24 01:15 1 TAB Meropenem 50 ml @ 17 mls/hr Q8H IV 06/21/24 01:00 06/21/24 10:10 17 MLS/HR Examination Pt is lying on bed General Appearance: alert, oriented X3 HEENT: Atraumatic, Mucous membranes moist/pink Respiratory: Clear to auscultation, Normal air movement, Cardiovascular: Regular rate, Normal S1, Normal S2, No murmurs Abdominal: hypoactive bowel sounds, no distention, no hepatosplenomegaly Extremities:No edema, Normal pulses, No tenderness/swelling Skin: No Significant rash, except surgical wound Neuro: Normal speech, no significant sensory motor deficits except mild weakness due to past CVA laboratory and microbiology Laboratory Tests 06/21/24 06:04 Test 06/21/24 06:04 Range/Units Serum Glucose 200 H 74-106 mg/dL Microbiology Date/Time Source Procedure Growth Status 06/14/24 06:14 Blood Blood Culture - Final NO GROWTH AFTER 5 DAYS OF INCUBATION. Complete 06/14/24 06:02 Sputum Gram Stain - Final Complete 06/14/24 06:02 Sputum Respiratory Culture - Final Complete 06/14/24 05:56 Urine - Lerner [place] Urine Culture - Final Complete Labs and/or images reviewed: Labs reviewed by me, Image(s) reviewed by me Problem List/Assessment/Plan Problem List/Assessment/Plan Neurology # Mechanical fall without LOC # Acute toxic or metabolic encephalopathy likely due to sepsis # H/o CVA - CT showed no acute changes - PT onboard Cardiology # HTN # Shock likely due to sepsis from UTI vs PNA # HLD # H/O [place] # s/p CABG # ? Acute on chronic diastolic CHF - Echo showed EF 55% with a grade 2 diastolic dysfunction - currently receiving meropenem - Dc vancomycin 06/20 - ordered pancultures, negative - monitor lab - Lasix p.o. 40 mg Respiratory # Acute hypoxic respiratory failure likely due to sepsis s/p intubation- Extubated 06/19 # ? Acute G+/- bacterial PNA - CXR showed increased left basilar opacities; pulmonary vascular congestion. 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 - monitor lab - avoid nephrotoxic agents - Strict Is&Os - Avoid hypotension - Glycemic control # acute complicated UTI - evident on urinalysis - currently on antibiotics - cultures ordered, negative # H/O Endometrial cancer - S/p hysterectomy MSK Endocrine/Meatbolic # uncontrolled type 2 DM with a HGB A1c 13.7 - Accu-Cheks and aggressive ISS - Lantus Heme-Onc # Anemia of chronic disease - monitor lab Skin Lines Intubated 06/14 Extubated 06/19 Right Femoral CVC 06/14 Lerner 06/14 Dips None PUD PPX : Protonix VTE PPX : Lovenox Diet: Diabetic diet Goals of care discussed with the family for more than 29 minutes: Full code status Patient's status updated to family members on bedside. Case discussed with Dr. Vernon. Extubated 06/19. Plan discussed with: Patient, Other (family) My Orders My Orders Orders - YAZAN ALCALA Procedure Category Date Status Time Chest Xray 1 View XY 06/21/24 Resulted 04:00 Dietary Evaluation Review Comments: 1. Estimated needs is based on CKD3B, 2. TPN per pharmacy if NPO > 7 days 3. TF Nepro @35ml/hr providing 68g pro and 1487 kcal if EN/GI accessible 3 when pt is off vent and passing speech eval, advance to CCHO-60 Renal specic with 60g protein restriction, or CCHO-60 Renal Standard Diet if pt is on scheduled routine dialysis. Expected Outcomes/Goals: Gradual Wt loss, improved lab values Date of Service: Jun 21, 2024 Billing Provider: MARIA TERESA VERNON MD Common Visit Codes: [id number] INP/OBS CARE(HIGH) Secondary Visit Codes: [id number] CARE PLAN 30 MINUTES YAZAN ALCALA Jun 21, 2024 10:58 MARIA TERESA VERNON MD Jun 24, 2024 13:02
[2024-06-21] MEDS: THROAT LOZENGES(CEPASTAT) MT PRN (12:24)
[2024-06-21] MEDS: FUROSEMIDE 20 MG/2 ML VIAL IV ONE (12:53)
[2024-06-22] VITALS (9 sets, daily range): BP systolic 87–139; BP diastolic 48–83; PULSE 67–90; RESP 16–20; TEMP 98–99.4; O2SAT 96–99
[2024-06-22 13:38] LABS: Basophils # (auto) 0.1 10 ^3/uL (0-0.2); Eosinophils # (auto) 0.4 10 ^3/uL (0-0.8); Lymphocytes # (auto) 1.2 10 ^3/uL (0.4-5.4); Monocytes # (auto) 0.5 10 ^3/uL (0-1.3)
[2024-06-22 13:40] LABS: Basophils % (auto) 0.8 % (0.0-2.0); Eosinophils % (auto) 5.9 % (0.0-7.0); Hematocrit 30.8 % (36.0-46.0); Hemoglobin 10.1 g/dL (12.2-16.2); Lymphocytes % (auto) 15.9 % (10.0-50.0); Mean Corpuscular Hemoglobin 30.2 pg (28.0-32.0); Mean Corpuscular Hgb Conc. 32.9 g/dL (32.0-36.0); Mean Corpuscular Volume 91.8 fL (80.0-100.0); Monocytes % (auto) 7.3 % (0.0-12.0); Neutrophils # (auto) 5.3 10 ^3/uL (1.6-8.6); Neutrophils % (auto) 70.1 % (37.0-80.0); Nucleated Red Blood Cells % 0.1 %; Platelet Count (auto) 472 10^3/uL (140-450); Red Blood Cells 3.35 10^6/uL (4.0-5.20); Red Cell Distribution Width 13.5 % (11.8-14.3); White Blood Cell 7.5 10^3/uL (4.4-10.8)
[2024-06-22 13:43] LABS: Albumin 3.4 g/dL (3.2-4.8); Alkaline Phosphatase 98 U/L (46-116); Anion Gap 7 (5-15); Aspartate Aminotransferase 13 U/L (13-40); BUN/Creatinine Ratio 18.1 (10.0-20.0); Calcium 9.1 mg/dL (8.7-10.4); Carbon Dioxide 25 mmol/L (20-31); Chloride 104 mmol/L (98-107); Magnesium 1.8 mg/dL (1.6-2.6); Potassium 4.5 mmol/L (3.5-5.1); Sodium 136 mmol/L (136-145)
[2024-06-22 13:44] LABS: Total Protein 6.4 g/dL (5.7-8.2)
[2024-06-22 13:52] LABS: Alanine Aminotransferase < 9 U/L (7-40); Bilirubin, Total 0.2 mg/dL (0.2-1.0); Blood Urea Nitrogen 33 mg/dL (9-23); Glucose 329 mg/dL (74-106)
--- NOTE | 2024-06-22 19:31 | DVHPN2 ---
Progress Note Date Seen: Jun 22, 2024 Medical Necessity Reason Pt with a Central, PICC or Fol: Yes The following are medically ne: Central Line, Lerner Catheter Reason for lerner catheter: Strict I&O Subjective Patient reports: No new complaints Review of Systems: Deferred Objective vital signs Vital Sign Date Time Temp Pulse Resp B/P (MAP) Pulse Ox O2 Delivery O2 Flow Rate FiO2 06/22/24 19:15 81 17 103/73 06/22/24 17:00 99.4 96 99.4 06/21/24 20:00 Nasal Cannula* 3 32 Total Intake and Output 06/21/24 06/21/24 06/22/24 15:00 23:00 07:00 Intake Total 50 ml 777 ml 375 ml Output Total 480 ml 370 ml Balance 50 ml 297 ml 5 ml medications Current Medications Medications Dose Ordered Sig/Yanna Route Start Time Stop Time Status Last Admin Dose Admin Docusate Sodium 100 mg BIDPRN PRN PO 06/14/24 11:15 Diagnostic Test (Pha) 1 strip Q6HR 06/16/24 18:00 06/22/24 18:12 1 STRIP Insulin Human Regular Q6HR SC 06/16/24 18:00 06/22/24 18:38 15 UNITS Dextrose 50 ml UD PRN IV 06/16/24 14:45 Enoxaparin Sodium 40 mg DAILY SC 06/19/24 10:00 06/22/24 10:29 40 MG Insulin Glargine 15 units QAM SC 06/19/24 07:00 06/22/24 06:28 15 UNITS Acetaminophen 650 mg Q6HP PRN [place] 06/20/24 06:00 06/20/24 06:59 650 MG Furosemide 40 mg DAILY PO 06/21/24 10:00 06/21/24 10:11 40 MG Gabapentin 600 mg BID PO 06/20/24 22:00 06/22/24 10:29 600 MG Hydromorphone HCl 0.5 mg Q4HPRN PRN IV 06/20/24 17:30 06/22/24 19:15 0.5 MG Acetaminophen/ Hydrocodone Bitart 1 tab Q6HPRN PRN PO 06/20/24 17:30 06/22/24 04:32 1 TAB Meropenem 50 ml @ 17 mls/hr Q8H IV 06/21/24 01:00 06/22/24 18:22 17 MLS/HR Throat Lozenges 1 veronica Q2HP PRN MT 06/21/24 11:15 06/22/24 19:15 1 VERONICA Examination: GENERAL:Normal, HEENT:Normal, NECK:Normal, LUNGS:Normal, CVS:Normal, ABDOMEN:Normal, MSK:Abnormal, SKIN:Abnormal, NEURO:Normal, :Normal laboratory and microbiology Laboratory Tests 06/22/24 13:05 Test 06/22/24 13:05 Range/Units Serum Glucose 329 H 74-106 mg/dL Microbiology Date/Time Source Procedure Growth Status 06/14/24 06:14 Blood Blood Culture - Final NO GROWTH AFTER 5 DAYS OF INCUBATION. Complete 06/14/24 06:02 Sputum Gram Stain - Final Complete 06/14/24 06:02 Sputum Respiratory Culture - Final Complete 06/14/24 05:56 Urine - Lerner [place] Urine Culture - Final Complete Problem List/Assessment/Plan Problem List/Assessment/Plan Acute kidney injury hemodynamically mediated in setting of septic shock Chronic kidney disease stage IIIB: Dr. Short [facility] diabetic nephropathy History of coronary artery disease with diastolic heart failure Septic shock Urinary tract infection Acute respiratory failure anemia endometrial Ca Recommendations stable renal function hold lasix Plan discussed with: Patient Dietary Evaluation Review Comments: 1. Estimated needs is based on CKD3B, 2. TPN per pharmacy if NPO > 7 days 3. TF Nepro @35ml/hr providing 68g pro and 1487 kcal if EN/GI accessible 3 when pt is off vent and passing speech eval, [facility] Renal specic with 60g protein restriction, or [facility] Renal Standard Diet if pt is on scheduled routine dialysis. Expected Outcomes/Goals: Gradual Wt loss, improved lab values RIGOBERTO SANTOS MD Jun 22, 2024 19:31
[2024-06-23] VITALS (8 sets, daily range): BP systolic 94–127; BP diastolic 43–72; PULSE 45–96; RESP 16–20; TEMP 97.6–98.9; O2SAT 20–100
--- NOTE | 2024-06-23 05:48 | DVH ---
CHEST RADIOGRAPH Indication: pna Technique: Single frontal view of the chest was obtained Comparison: XY CHEST XRAY 1 VIEW on DOS: 06/21/24, XY CHEST XRAY 1 VIEW on DOS: 06/20/24, XY CHEST XRAY 1 VIEW on DOS: 06/19/24 IMPRESSION: The heart is mildly prominent size. There are median sternotomy wires and surgical clips. Right infu dwayne port tip at the region of the superior vena cava. Bibasilar subsegmental atelectasis. No sizabl e effusion or pneumothorax.
[2024-06-23 06:52] LABS: Basophils # (auto) 0.1 10 ^3/uL (0-0.2); Eosinophils # (auto) 0.4 10 ^3/uL (0-0.8); Eosinophils % (auto) 5.5 % (0.0-7.0); Lymphocytes # (auto) 1.6 10 ^3/uL (0.4-5.4); Mean Corpuscular Volume 91.7 fL (80.0-100.0); Monocytes # (auto) 0.7 10 ^3/uL (0-1.3); Neutrophils # (auto) 4.8 10 ^3/uL (1.6-8.6); Nucleated Red Blood Cells % 0.1 %; Red Blood Cells 3.07 10^6/uL (4.0-5.20); Red Cell Distribution Width 13.1 % (11.8-14.3); White Blood Cell 7.6 10^3/uL (4.4-10.8)
[2024-06-23 06:54] LABS: Hematocrit 28.1 % (36.0-46.0); Hemoglobin 9.2 g/dL (12.2-16.2); Lymphocytes % (auto) 21.4 % (10.0-50.0); Mean Corpuscular Hemoglobin 30.1 pg (28.0-32.0); Mean Corpuscular Hgb Conc. 32.9 g/dL (32.0-36.0); Monocytes % (auto) 9.2 % (0.0-12.0); Neutrophils % (auto) 62.9 % (37.0-80.0); Platelet Count (auto) 499 10^3/uL (140-450)
[2024-06-23 07:07] LABS: Alkaline Phosphatase 97 U/L (46-116); Anion Gap 7 (5-15); BUN/Creatinine Ratio 17.3 (10.0-20.0); Calcium 8.8 mg/dL (8.7-10.4); Carbon Dioxide 27 mmol/L (20-31); Chloride 100 mmol/L (98-107); Potassium 4.8 mmol/L (3.5-5.1)
[2024-06-23 07:08] LABS: Albumin 3.4 g/dL (3.2-4.8); Total Protein 6.4 g/dL (5.7-8.2)
[2024-06-23 07:16] LABS: Aspartate Aminotransferase 10 U/L (13-40); Blood Urea Nitrogen 39 mg/dL (9-23); Glucose 379 mg/dL (74-106); Sodium 134 mmol/L (136-145)
[2024-06-23 07:17] LABS: Alanine Aminotransferase < 9 U/L (7-40); Bilirubin, Total < 0.2 mg/dL (0.2-1.0)
--- NOTE | 2024-06-23 15:17 | DVHPN2 ---
Subjective The patient seen and examined at bedside. The patient is very tired. Reviewed: Care Plan, H&P, Labs, Medications, Previous Orders, Radiology Changes from previous H/P or p: No Changes Objective Vitals Vital Signs Date Time Temp Pulse Resp B/P (MAP) Pulse Ox O2 Delivery O2 Flow Rate FiO2 06/23/24 13:00 98.0 45 20 94/52 (66) 98 98.0 06/23/24 08:00 Nasal Cannula* 3 32 Intake/Output Intake and Output 06/23/24 07:00 Intake Total 2418 ml Output Total 950 ml Balance 1468 ml Intake Oral 2308 ml IV Total 110 ml Output Urine Total 950 ml # Voids 1 General Appearance: Alert, Cooperative, No acute distress HEENT: Atraumatic, PERRLA Neck: Supple Lungs: Clear to auscultation, Normal air movement Cardiovascular: Regular rate, Normal S1, Normal S2, No murmurs, Gallops, Rubs Abdomen: Normal bowel sounds, Soft, No tenderness Neuro: Cranial nerves 3-12 NL Psych/Mental Status: Mental status NL Medications Current Medications Medications Dose Ordered Sig/Yanna Route Start Time Stop Time Status Last Admin Dose Admin Docusate Sodium 100 mg BIDPRN PRN PO 06/14/24 11:15 Diagnostic Test (Pha) 1 strip Q6HR 06/16/24 18:00 06/23/24 12:09 1 STRIP Insulin Human Regular Q6HR SC 06/16/24 18:00 06/23/24 12:51 12 UNITS Dextrose 50 ml UD PRN IV 06/16/24 14:45 Enoxaparin Sodium 40 mg DAILY SC 06/19/24 10:00 06/23/24 09:34 40 MG Insulin Glargine 15 units QAM SC 06/19/24 07:00 06/23/24 06:10 15 UNITS Acetaminophen 650 mg Q6HP PRN NC 06/20/24 06:00 06/20/24 06:59 650 MG Gabapentin 600 mg BID PO 06/20/24 22:00 06/23/24 09:30 600 MG Hydromorphone HCl 0.5 mg Q4HPRN PRN IV 06/20/24 17:30 06/23/24 11:22 0.5 MG Acetaminophen/ Hydrocodone Bitart 1 tab Q6HPRN PRN PO 06/20/24 17:30 06/23/24 15:02 1 TAB Meropenem 50 ml @ 17 mls/hr Q8H IV 06/21/24 01:00 06/23/24 09:24 17 MLS/HR Throat Lozenges 1 veronica Q2HP PRN MT 06/21/24 11:15 06/23/24 06:09 1 VERONICA Laboratory Results Laboratory Tests 06/23/24 06:23 Chemistry Test 06/23/24 06:23 Albumin 3.4 g/dL (3.2-4.8) Calcium Level 8.8 mg/dL (8.7-10.4) Magnesium Level 2.0 mg/dL (1.6-2.6) Total Protein 6.4 g/dL (5.7-8.2) LFT Test 06/23/24 06:23 Alanine Aminotransferase (ALT) < 9 U/L (7-40) Alkaline Phosphatase 97 U/L (46-116) Aspartate Amino Transferase (AST) 10 U/L (13-40) L Total Bilirubin < 0.2 mg/dL (0.2-1.0) L Urinalysis Test 06/14/24 05:56 Urine Color Colorless (Yellow) Urine Clarity Ex.turbid (Clear) Urine pH 6.0 (5.0-9.0) Urine Specific [place] 1.007 (1.001-1.035) Urine Protein 2+ (Negative) H Urine Ketones Negative (Negative) Urine Blood 2+ /uL (Negative) H Urine Nitrite Negative (Negative) Urine Bilirubin Negative (Negative) Urine Urobilinogen Normal mg/dL (Negative) Urine Leukocyte Esterase 3+ /uL (Negative) Urine RBC 10 /hpf (0 - 4) Urine WBC Clumps Present /hpf (None Seen) Urine Microscopic WBC 1589 /HPF (0-5) H Urine Squamous Epithelial Cells None seen /hpf (<5) Urine Bacteria None seen /hpf (None Seen) Urine Creatinine 13.77 mg/dL (30.0-125.0) L Urine Sodium 126 mmol/L (40-220) Urine Glucose 3+ mg/dL (Normal) H Microbiology Microbiology Date/Time Source Procedure Growth Status 06/14/24 06:14 Blood Blood Culture - Final NO GROWTH AFTER 5 DAYS OF INCUBATION. Complete 06/14/24 06:02 Sputum Gram Stain - Final Complete 06/14/24 06:02 Sputum Respiratory Culture - Final Complete 06/14/24 05:56 Urine - [place] Urine Culture - Final Complete Labs and/or images reviewed: Labs reviewed by me Assessment/Plan Assessment/Plan Septic shock likely due to bilateral lower lobe pneumonia and UTI acute hypoxic respiratory failure requiring intubation likely due to bilateral lower lobe pneumonia, now extubated JERROD likely due to shock DKA Hypotension Continue current management. Continue with IV antibiotic We will monitor blood pressure. Appreciate Pulmonology and Nephrology input Continuing with sliding scale insulin. This medical document was created using an electronic medical record system with [employer] direct computerized dictation system. Although this document has been carefully reviewed, there may still be some phonetic and typographical errors. These areas are purely typographical due to imperfections of the software programs, and do not reflect any compromise in the patient's medical care. Plan discussed with: Patient Date of Service: Jun 23, 2024 Billing Provider: EMERALD WINTER MD Common Visit Codes: [id number] INP/OBS CARE(HIGH) EMERALD WINTER MD Jun 23, 2024 15:17
[2024-06-23] MEDS: MEROPENEM 1GM IVPB 50 ML IV SCH (21:07)
[2024-06-23] MEDS: GABAPENTIN 300 MG CAP PO SCH (21:08)
--- NOTE | 2024-06-23 21:13 | DVHPN2 ---
Progress Note Date Seen: Jun 23, 2024 Medical Necessity Reason Pt with a Central, PICC or Fol: Yes The following are medically ne: Central Line, Lerner Catheter Reason for lerner catheter: Strict I&O Subjective Patient reports: Other (c/o leg swelling) Review of Systems: Deferred Objective vital signs Vital Sign Date Time Temp Pulse Resp B/P (MAP) Pulse Ox O2 Delivery O2 Flow Rate FiO2 06/23/24 17:00 97.6 86 18 102/65 (77) 92 97.6 06/23/24 08:00 Nasal Cannula* 3 32 Total Intake and Output 06/22/24 06/22/24 06/23/24 15:00 23:00 07:00 Intake Total 723 ml 970 ml 725 ml Output Total 950 ml Balance 723 ml 20 ml 725 ml medications Current Medications Medications Dose Ordered Sig/Yanna Route Start Time Stop Time Status Last Admin Dose Admin Docusate Sodium 100 mg BIDPRN PRN PO 06/14/24 11:15 Diagnostic Test (Pha) 1 strip Q6HR 06/16/24 18:00 06/23/24 18:03 1 STRIP Insulin Human Regular Q6HR SC 06/16/24 18:00 06/23/24 18:13 15 UNITS Dextrose 50 ml UD PRN IV 06/16/24 14:45 Enoxaparin Sodium 40 mg DAILY SC 06/19/24 10:00 06/23/24 09:34 40 MG Insulin Glargine 15 units QAM SC 06/19/24 07:00 06/23/24 06:10 15 UNITS Acetaminophen 650 mg Q6HP PRN [place] 06/20/24 06:00 06/20/24 06:59 650 MG Hydromorphone HCl 0.5 mg Q4HPRN PRN IV 06/20/24 17:30 06/23/24 11:22 0.5 MG Acetaminophen/ Hydrocodone Bitart 1 tab Q6HPRN PRN PO 06/20/24 17:30 06/23/24 21:09 1 TAB Throat Lozenges 1 veronica Q2HP PRN MT 06/21/24 11:15 06/23/24 06:09 1 VERONICA Meropenem 50 ml @ 17 mls/hr Q12H IV 06/23/24 21:00 06/23/24 21:07 17 MLS/HR Gabapentin 300 mg TID PO 06/23/24 22:00 06/23/24 21:08 300 MG Examination: GENERAL:Normal, LUNGS:Abnormal, ABDOMEN:Normal, MSK:Abnormal, NEURO:Normal laboratory and microbiology Laboratory Tests 06/23/24 06:23 Test 06/23/24 06:23 Range/Units Serum Glucose 379 H 74-106 mg/dL Microbiology Date/Time Source Procedure Growth Status 06/14/24 06:14 Blood Blood Culture - Final NO GROWTH AFTER 5 DAYS OF INCUBATION. Complete 06/14/24 06:02 Sputum Gram Stain - Final Complete 06/14/24 06:02 Sputum Respiratory Culture - Final Complete 06/14/24 05:56 Urine - [place] Urine Culture - Final Complete Problem List/Assessment/Plan Problem List/Assessment/Plan Acute kidney injury hemodynamically mediated in setting of septic shock Chronic kidney disease stage IIIB: Dr. Short [facility] diabetic nephropathy History of coronary artery disease with diastolic heart failure Septic shock Urinary tract infection Acute respiratory failure /pna anemia endometrial Ca Recommendations c/o leg swelling resume lasix renal function slight worsening Plan discussed with: Patient My Orders My Orders Orders - RIGOBERTO SANTOS MD Procedure Category Date Status Time Bladder Scan ORDERS 06/23/24 Transmitted 09:17 Furosemide Injection PHA 06/23/24 Verified (Lasix Injection) 21:15 Furosemide Injection PHA 06/24/24 Verified (Lasix Injection) 10:00 Dietary Evaluation Review Comments: 1. Estimated needs is based on CKD3B, 2. TPN per pharmacy if NPO > 7 days 3. TF Nepro @35ml/hr providing 68g pro and 1487 kcal if EN/GI accessible 3 when pt is off vent and passing speech eval, [facility] with 60g protein restriction, or CCHO-60 Renal Standard Diet if pt is on scheduled routine dialysis. Expected Outcomes/Goals: Gradual Wt loss, improved lab values RIGOBERTO SANTOS MD Jun 23, 2024 21:13
[2024-06-23] MEDS: FUROSEMIDE 40 MG/4 ML VIAL IV ONE (23:45)
[2024-06-24] VITALS (8 sets, daily range): BP systolic 83–131; BP diastolic 46–61; PULSE 64–95; RESP 18–20; TEMP 97.7–98.8; O2SAT 98–100
[2024-06-24] MEDS: FUROSEMIDE 40 MG/4 ML VIAL IV SCH (10:00)
[2024-06-24] MEDS: MEROPENEM 1GM IVPB 50 ML IV SCH (12:43)
[2024-06-24] MEDS: MIDODRINE HCL 10 MG TAB PO ONE ×2 (17:44→22:00)
[2024-06-24 18:01] LABS: Anion Gap 7 (5-15); Carbon Dioxide 25 mmol/L (20-31); Chloride 100 mmol/L (98-107)
[2024-06-24 18:02] LABS: Calcium 8.9 mg/dL (8.7-10.4)
[2024-06-24 18:07] LABS: BUN/Creatinine Ratio 20.9 (10.0-20.0); Blood Urea Nitrogen 45 mg/dL (9-23); Glucose 299 mg/dL (74-106); Potassium 5.4 mmol/L (3.5-5.1); Sodium 132 mmol/L (136-145)
--- NOTE | 2024-06-24 18:24 | DVHPN2 ---
Progress Note Date Seen: Jun 24, 2024 Medical Necessity Reason Pt with a Central, PICC or Fol: Yes The following are medically ne: Central Line, Lerner Catheter Reason for lerner catheter: Strict I&O Subjective Patient reports: No new complaints Review of Systems: Deferred Objective vital signs Vital Sign Date Time Temp Pulse Resp B/P (MAP) Pulse Ox O2 Delivery O2 Flow Rate FiO2 06/24/24 17:00 98.2 91 20 125/54 (77) 98 98.2 06/24/24 08:00 Nasal Cannula* 3 32 Total Intake and Output 06/23/24 06/23/24 06/24/24 15:00 23:00 07:00 Intake Total 280 ml 230 ml 0 ml Output Total 400 ml Balance 280 ml -170 ml 0 ml medications Current Medications Medications Dose Ordered Sig/Yanna Route Start Time Stop Time Status Last Admin Dose Admin Docusate Sodium 100 mg BIDPRN PRN PO 06/14/24 11:15 Diagnostic Test (Pha) 1 strip Q6HR 06/16/24 18:00 06/24/24 17:44 1 STRIP Insulin Human Regular Q6HR SC 06/16/24 18:00 06/24/24 17:46 9 UNITS Dextrose 50 ml UD PRN IV 06/16/24 14:45 Enoxaparin Sodium 40 mg DAILY SC 06/19/24 10:00 06/24/24 12:42 40 MG Insulin Glargine 15 units QAM SC 06/19/24 07:00 06/24/24 07:13 15 UNITS Acetaminophen 650 mg Q6HP PRN MD 06/20/24 06:00 06/20/24 06:59 650 MG Hydromorphone HCl 0.5 mg Q4HPRN PRN IV 06/20/24 17:30 06/23/24 23:45 0.5 MG Acetaminophen/ Hydrocodone Bitart 1 tab Q6HPRN PRN PO 06/20/24 17:30 06/24/24 13:01 1 TAB Throat Lozenges 1 veronica Q2HP PRN MT 06/21/24 11:15 06/24/24 05:41 1 VERONICA Gabapentin 300 mg TID PO 06/23/24 22:00 06/24/24 15:11 300 MG Furosemide 40 mg DAILY IV 06/24/24 10:00 Meropenem 50 ml @ 17 mls/hr Q12H IV 06/24/24 12:00 06/24/24 12:43 17 MLS/HR Examination: GENERAL:Normal, HEENT:Normal, NECK:Normal, LUNGS:Abnormal, CVS:Normal, ABDOMEN:Normal, MSK:Abnormal, SKIN:Normal, NEURO:Normal, :Normal laboratory and microbiology Laboratory Tests 06/24/24 17:38 06/23/24 06:23 Test 06/24/24 17:38 Range/Units Serum Glucose 299 H 74-106 mg/dL Microbiology Date/Time Source Procedure Growth Status 06/14/24 06:14 Blood Blood Culture - Final NO GROWTH AFTER 5 DAYS OF INCUBATION. Complete 06/14/24 06:02 Sputum Gram Stain - Final Complete 06/14/24 06:02 Sputum Respiratory Culture - Final Complete 06/14/24 05:56 Urine - [place] Urine Culture - Final Complete Problem List/Assessment/Plan Problem List/Assessment/Plan Acute kidney injury hemodynamically mediated in setting of septic shock Chronic kidney disease stage IIIB: Dr. Short [facility] diabetic nephropathy History of coronary artery disease with diastolic heart failure Septic shock Urinary tract infection Acute respiratory failure /pna anemia endometrial Ca Recommendations c/o leg swelling resume lasix renal function slight worsening lokelma Plan discussed with: Patient My Orders My Orders Orders - RIGOBERTO SANTOS MD Procedure Category Date Status Time Furosemide Injection PHA 06/24/24 In Process (Lasix Injection) 10:00 Sodium Zirconium PHA 06/24/24 In Process Cyclosilicate 18:30 Dietary Evaluation Review Comments: 1. Estimated needs is based on CKD3B, 2. TPN per pharmacy if NPO > 7 days 3. TF Nepro @35ml/hr providing 68g pro and 1487 kcal if EN/GI accessible 3 when pt is off vent and passing speech eval, [facility] with 60g protein restriction, or CCHO-60 Renal Standard Diet if pt is on scheduled routine dialysis. Expected Outcomes/Goals: Gradual Wt loss, improved lab values RIGOBERTO SANTOS MD Jun 24, 2024 18:24
[2024-06-24] MEDS: SODIUM ZIRCONIUM CYCL 10 GM PAK PO ONE (19:57)
--- NOTE | 2024-06-24 20:30 | DVH ---
CLINICAL HISTORY: pain with ambulation. TECHNIQUE: Color and duplex doppler imaging of the bilateral lower extremity veins was performed. Ves ana rosa compression if possible was also performed. WID: COMPARISON: US BILAT LOWER DVT on DOS: 02/22/24 FINDINGS: Right Lower Extremity: Right common femoral vein: Normal compressibility and flow. Right femoral vein: Normal compressibility and flow. Right popliteal vein: Normal compressibility and flow. Proximal calf veins are normally compressible. Left Lower Extremity: Left common femoral vein: Normal compressibility and flow. Left femoral vein: Normal compressibility and flow. Left popliteal vein: Normal compressibility and flow. Proximal calf veins are normally compressible. IMPRESSION: NO SONOGRAPHIC EVIDENCE FOR DEEP VENOUS THROMBOSIS IN THE BILATERAL LOWER EXTREMITY VEINS.
--- NOTE | 2024-06-24 21:48 | DVHPN2 ---
Subjective The patient seen and examined at bedside. The patient is very tired. Reviewed: Care Plan, H&P, Labs, Medications, Previous Orders, Radiology Changes from previous H/P or p: No Changes Objective Vitals Vital Signs Date Time Temp Pulse Resp B/P (MAP) Pulse Ox O2 Delivery O2 Flow Rate FiO2 06/24/24 20:14 94 18 127/61 06/24/24 17:00 98.2 98 98.2 06/24/24 08:00 Nasal Cannula* 3 32 Intake/Output Intake and Output 06/24/24 07:00 Intake Total 510 ml Output Total 400 ml Balance 110 ml Intake Oral 460 ml IV Total 50 ml Output Urine Total 400 ml General Appearance: Alert, Cooperative, No acute distress HEENT: Atraumatic, PERRLA Neck: Supple Lungs: Clear to auscultation, Normal air movement Cardiovascular: Regular rate, Normal S1, Normal S2, No murmurs, Gallops, Rubs Abdomen: Normal bowel sounds, Soft, No tenderness Neuro: Cranial nerves 3-12 NL Psych/Mental Status: Mental status NL Medications Current Medications Medications Dose Ordered Sig/Yanna Route Start Time Stop Time Status Last Admin Dose Admin Docusate Sodium 100 mg BIDPRN PRN PO 06/14/24 11:15 Diagnostic Test (Pha) 1 strip Q6HR 06/16/24 18:00 06/24/24 17:44 1 STRIP Insulin Human Regular Q6HR SC 06/16/24 18:00 06/24/24 17:46 9 UNITS Dextrose 50 ml UD PRN IV 06/16/24 14:45 Enoxaparin Sodium 40 mg DAILY SC 06/19/24 10:00 06/24/24 12:42 40 MG Insulin Glargine 15 units QAM SC 06/19/24 07:00 06/24/24 07:13 15 UNITS Acetaminophen 650 mg Q6HP PRN [place] 06/20/24 06:00 06/20/24 06:59 650 MG Hydromorphone HCl 0.5 mg Q4HPRN PRN IV 06/20/24 17:30 06/24/24 20:14 0.5 MG Acetaminophen/ Hydrocodone Bitart 1 tab Q6HPRN PRN PO 06/20/24 17:30 06/24/24 13:01 1 TAB Throat Lozenges 1 veronica Q2HP PRN MT 06/21/24 11:15 06/24/24 05:41 1 VERONICA Gabapentin 300 mg TID PO 06/23/24 22:00 06/24/24 15:11 300 MG Furosemide 40 mg DAILY IV 06/24/24 10:00 Meropenem 50 ml @ 17 mls/hr Q12H IV 06/24/24 12:00 06/24/24 12:43 17 MLS/HR Laboratory Results Laboratory Tests 06/23/24 06:23 06/24/24 17:38 Chemistry Test 06/24/24 17:38 Calcium Level 8.9 mg/dL (8.7-10.4) Urinalysis Test 06/14/24 05:56 Urine Color Colorless (Yellow) Urine Clarity Ex.turbid (Clear) Urine pH 6.0 (5.0-9.0) Urine Specific [place] 1.007 (1.001-1.035) Urine Protein 2+ (Negative) H Urine Ketones Negative (Negative) Urine Blood 2+ /uL (Negative) H Urine Nitrite Negative (Negative) Urine Bilirubin Negative (Negative) Urine Urobilinogen Normal mg/dL (Negative) Urine Leukocyte Esterase 3+ /uL (Negative) Urine RBC 10 /hpf (0 - 4) Urine WBC Clumps Present /hpf (None Seen) Urine Microscopic WBC 1589 /HPF (0-5) H Urine Squamous Epithelial Cells None seen /hpf (<5) Urine Bacteria None seen /hpf (None Seen) Urine Creatinine 13.77 mg/dL (30.0-125.0) L Urine Sodium 126 mmol/L (40-220) Urine Glucose 3+ mg/dL (Normal) H Microbiology Microbiology Date/Time Source Procedure Growth Status 06/14/24 06:14 Blood Blood Culture - Final NO GROWTH AFTER 5 DAYS OF INCUBATION. Complete 06/14/24 06:02 Sputum Gram Stain - Final Complete 06/14/24 06:02 Sputum Respiratory Culture - Final Complete 06/14/24 05:56 Urine - [place] Urine Culture - Final Complete Labs and/or images reviewed: Labs reviewed by me Assessment/Plan Assessment/Plan Septic shock likely due to bilateral lower lobe pneumonia and UTI acute hypoxic respiratory failure requiring intubation likely due to bilateral lower lobe pneumonia, now extubated JERROD likely due to shock DKA Hypotension Continue current management. Continue with IV antibiotic We will monitor blood pressure. We will restart her midodrine 10 mg twice per day as per home dose Appreciate Pulmonology and Nephrology input Continuing with sliding scale insulin. This medical document was created using an electronic medical record system with [employer] direct computerized dictation system. Although this document has been carefully reviewed, there may still be some phonetic and typographical errors. These areas are purely typographical due to imperfections of the software programs, and do not reflect any compromise in the patient's medical care. Plan discussed with: Patient My Orders Orders - EMERALD WINTER MD Procedure Category Date Status Time Ok To Access ORDERS 06/24/24 Transmitted Mario-Cath 10:41 D/C Triple Lumen ORDERS 06/24/24 Transmitted 10:41 Ok To Access ORDERS 06/24/24 Transmitted Mario-Cath 10:45 Midodrine Tablet PHA 06/24/24 In Process (Proamatine Tablet) 22:00 Mechanical Soft Diet DIET 06/24/24 Transmitted Dinner Bilat Lower Dvt US 06/24/24 Resulted 19:17 Date of Service: Jun 24, 2024 Billing Provider: EMERALD WINTER MD Common Visit Codes: [id number] INP/OBS CARE(HIGH) EMERALD WINTER MD Jun 24, 2024 21:48
[2024-06-24] MEDS: HYDROcodone-ACET 5/325MG TAB PO ONE (23:10)
[2024-06-25] VITALS (8 sets, daily range): BP systolic 89–142; BP diastolic 48–71; PULSE 47–95; RESP 18–19; TEMP 97.9–98.7; O2SAT 96–100
[2024-06-25] MEDS ORDERED: MIDODRINE HCL 10 MG TAB PO ONE (08:45)
[2024-06-25 10:58] LABS: Basophils # (auto) 0.1 10 ^3/uL (0-0.2); Eosinophils # (auto) 0.5 10 ^3/uL (0-0.8); Monocytes # (auto) 0.6 10 ^3/uL (0-1.3); Neutrophils # (auto) 5.4 10 ^3/uL (1.6-8.6); Red Blood Cells 2.65 10^6/uL (4.0-5.20)
[2024-06-25 11:00] LABS: Basophils % (auto) 1.2 % (0.0-2.0); Eosinophils % (auto) 5.5 % (0.0-7.0); Hematocrit 24.1 % (36.0-46.0); Lymphocytes # (auto) 2.3 10 ^3/uL (0.4-5.4); Lymphocytes % (auto) 25.9 % (10.0-50.0); Mean Corpuscular Hemoglobin 30.2 pg (28.0-32.0); Mean Corpuscular Hgb Conc. 33.2 g/dL (32.0-36.0); Mean Corpuscular Volume 90.9 fL (80.0-100.0); Monocytes % (auto) 6.8 % (0.0-12.0); Neutrophils % (auto) 60.6 % (37.0-80.0); Platelet Count (auto) 488 10^3/uL (140-450); Red Cell Distribution Width 12.9 % (11.8-14.3); White Blood Cell 8.9 10^3/uL (4.4-10.8)
[2024-06-25 11:24] LABS: Anion Gap 6 (5-15); Carbon Dioxide 25 mmol/L (20-31); Chloride 103 mmol/L (98-107)
[2024-06-25 11:31] LABS: BUN/Creatinine Ratio 26.6 (10.0-20.0)
[2024-06-25 11:40] LABS: Blood Urea Nitrogen 46 mg/dL (9-23); Calcium 8.6 mg/dL (8.7-10.4); Glucose 260 mg/dL (74-106); Sodium 134 mmol/L (136-145)
--- NOTE | 2024-06-25 12:49 | DVHPNRES ---
Progress Note Date Seen: Jun 25, 2024 Resident Creating Document: [place] RESIDENT Medical Necessity Reason Pt with a Central, PICC or Fol: Yes The following are medically ne: Central Line, Lerner Catheter Reason for lerner catheter: Aydin. Abd Surgery, Strict I&O Subjective Review of Systems 49 year old female patient with past medical history of endometrial cancer status post hysterectomy, chronic diastolic heart failure, cerebrovascular accident type 2 diabetes, hyperlipidemia, hypertension myocardial infarction status post CABG. Who was brought to the emergency department with the chief complaint of generalized weakness and mechanical fall without loss of consciousness. Patient was started treatment for septic shock due to bilateral lower lobe pneumonia/UTI that was showed on urinalysis and chest x-rays. Patient developed acute hypoxemic respiratory failure requiring intubation. Patient was extubated on 06/19/2024 and currently downgraded to telemetry. CT head was unremarkable, echocardiogram showed ejection fraction 55%, sanchez cultures were negative. Patient still on antibiotics, currently on meropenem IV. Laboratory results today showed a decreased hemoglobin levels from 9.4-8, Lovenox was held for now. Patient is able to stand up and is currently on physical therapy. A creatinine levels went down from 2.15 to 1.73 and potassium went down from 5.4 to 5 after Lokelma. [employer] are currently working on home health services, pending. Based on recent glucose levels, Lantus 15 will be given b.i.d. ABG with CO/OX Transferred to [facility]. Start DC planning for a.m.. Review of systems: Constitutional: Morbidly obese, disheveled on moderate acute distress No: Fever, Chills, Sweats, Weakness, Malaise, Other Eyes: No: Pain, Vision change, Conjunctivae inflammation, Eyelid inflammation, Other, Redness ENT: No: Ear pain, Ear discharge, Nose pain, Nose discharge, Nose congestion, Mouth pain, Mouth swelling, Throat pain, Throat swelling, Other Respiratory: Cough present, Shortness of breath currently on nasal cannula 2 L, improving No Wheezing, Hemoptysis, Pleuritic Pain, Sputum, Wheezing, Other Cardiovascular: : Orthopnea, 1+ lower extremity edema, paroxysmal nocturnal dyspnea Gastrointestinal: No: Nausea, Vomiting, Abdominal Pain, Diarrhea, Constipation, Melena, Hematochezia, Other Musculoskeletal: No: other, neck pain, shoulder pain, arm pain, back pain, hand pain, leg pain, foot pain Neurological:; yes: Bilateral lower extremity pain, likely neuropathic Patient reports: No new complaints Objective vital signs Vital Sign Date Time Temp Pulse Resp B/P (MAP) Pulse Ox O2 Delivery O2 Flow Rate FiO2 06/25/24 10:31 119/66 06/25/24 09:33 91 18 06/25/24 09:00 98.0 98 98.0 06/25/24 08:00 Room Air* 0 21 Total Intake and Output 06/24/24 06/24/24 06/25/24 15:00 23:00 07:00 Intake Total 360 ml 740 ml 250 ml Balance 360 ml 740 ml 250 ml medications Current Medications Medications Dose Ordered Sig/Yanna Route Start Time Stop Time Status Last Admin Dose Admin Docusate Sodium 100 mg BIDPRN PRN PO 06/14/24 11:15 Diagnostic Test (Pha) 1 strip Q6HR 06/16/24 18:00 06/25/24 06:50 1 STRIP Insulin Human Regular Q6HR SC 06/16/24 18:00 06/25/24 06:50 6 UNITS Dextrose 50 ml UD PRN IV 06/16/24 14:45 Enoxaparin Sodium 40 mg DAILY SC 06/19/24 10:00 06/25/24 09:09 40 MG Insulin Glargine 15 units QAM SC 06/19/24 07:00 06/25/24 06:51 15 UNITS Acetaminophen 650 mg Q6HP PRN [place] 06/20/24 06:00 06/20/24 06:59 650 MG Hydromorphone HCl 0.5 mg Q4HPRN PRN IV 06/20/24 17:30 06/25/24 09:03 0.5 MG Acetaminophen/ Hydrocodone Bitart 1 tab Q6HPRN PRN PO 06/20/24 17:30 06/25/24 10:38 1 TAB Throat Lozenges 1 veronica Q2HP PRN MT 06/21/24 11:15 06/24/24 05:41 1 VERONICA Gabapentin 300 mg TID PO 06/23/24 22:00 06/25/24 06:47 300 MG Furosemide 40 mg DAILY IV 06/24/24 10:00 06/25/24 10:31 40 MG Meropenem 50 ml @ 17 mls/hr Q12H IV 06/24/24 12:00 06/25/24 00:47 17 MLS/HR Examination Examination General Appearance: Alert, Oriented X3, Cooperative, moderate acute distress HEENT: EOMI Respiratory: On oxygen supplementation through nasal cannula, crackles, rales, no wheezing Cardiovascular: Regular rate, Normal S1, Normal S2 Abdominal: Normal bowel sounds Extremities: No cyanosis, lower extremity edema 1+, Normal pulses, No tenderness/swelling Skin: No rashes, No breakdown Neuro: Normal speech, Strength at 3/5 X lower extremities , Normal tone, decreased sensation in lower extremities Psych/Mental Status: Mental status NL, Mood NL laboratory and microbiology Laboratory Tests 06/25/24 10:30 Test 06/25/24 10:30 Range/Units Serum Glucose Pending Microbiology Date/Time Source Procedure Growth Status 06/14/24 06:14 Blood Blood Culture - Final NO GROWTH AFTER 5 DAYS OF INCUBATION. Complete 06/14/24 06:02 Sputum Gram Stain - Final Complete 06/14/24 06:02 Sputum Respiratory Culture - Final Complete 06/14/24 05:56 Urine - Lerner Port Urine Culture - Final Complete Problem List/Assessment/Plan Problem List/Assessment/Plan Neurology # Mechanical fall without LOC # Acute toxic or metabolic encephalopathy likely due to sepsis # H/o CVA - CT showed no acute changes - PT onboard Cardiology # Hypertension # Shock likely due to sepsis from UTI vs PNA # HLD # H/O [place] # Acute cornoary syndrome s/p CABG # Acute on chronic diastolic heart failure exacerbation - Echo showed EF 55% with a grade 2 diastolic dysfunction - ciprofloxacin 500 mg p.o. - Lasix p.o. 40 mg Respiratory # Acute hypoxic respiratory failure likely due to sepsis s/p intubation- Extubated 06/19 # ? Acute G+/- bacterial PNA - CXR showed left basilar opacities - Extubated 06/19, currently downgraded to telemetry - ciprofloxacin 500 mg p.o. - Currently on NC 3 L, titrate down as tolerated GI/Liver/ Abdomen # Morbid Obesity BMI 44.7 - Nutrional councelling /Kidney/Reproductive # Acute kidney injury hemodynamically mediated in setting of septic shock # Chronic kidney disease stage IIIB # Nephrotic syndrome secondary to diabetic nephropathy - monitor lab - avoid nephrotoxic agents - Strict Is&Os - Avoid hypotension - Glycemic control # acute complicated UTI - evident on urinalysis - currently on antibiotics - cultures ordered, negative # H/O Endometrial cancer - S/p hysterectomy MSK Endocrine/Meatbolic # uncontrolled type 2 DM with a HGB A1c 13.7 - Accu-Cheks and aggressive ISS - Lantus 15 subcutaneous, b.i.d. - Cortisol levels Heme-Onc # Anemia of chronic disease - monitor lab Skin - port catheter Lines Intubated 06/14 Extubated 06/19 Right Femoral CVC 06/14 Lerner 06/14 Lerner DC 06/22 Drips None PUD PPX : Protonix VTE PPX : Lovenox held Diet: Mechanical soft Goals of care discussed with the family for more than 24 minutes: Full code status Plan of care updated to family on phone. Case discussed with . Plan discussed with: Patient My Orders My Orders Orders - C[place] CAMP[place] Procedure Category Date Status Time Basic Metabolic Panel LAB 06/25/24 In Process 08:40 Communication Order ORDERS 06/25/24 Transmitted 10:06 Dietary Evaluation Review Comments: 1. Estimated needs is based on CKD3B, 2. TPN per pharmacy if NPO > 7 days 3. TF Nepro @35ml/hr providing 68g pro and 1487 kcal if EN/GI accessible 3 when pt is off vent and passing speech eval, advance to CCHO-60 Renal specic with 60g protein restriction, or CCHO-60 Renal Standard Diet if pt is on scheduled routine dialysis. Expected Outcomes/Goals: Gradual Wt loss, improved lab values Date of Service: Jun 25, 2024 Billing Provider: MARIA TERESA VERNON MD Common Visit Codes: [id number] INP/OBS CARE(HIGH) Secondary Visit Codes: [id number] CARE PLAN 30 MINUTES [place] CAMP[place] Jun 25, 2024 12:49 MARIA TERESA VERNON MD Jun 26, 2024 16:27
--- NOTE | 2024-06-25 12:50 | DVHPN2 ---
Progress Note Date Seen: Jun 25, 2024 Medical Necessity Reason Pt with a Central, PICC or Fol: Yes The following are medically ne: Central Line, Lerner Catheter Reason for lerner catheter: Strict I&O Subjective Patient reports: No new complaints Other Systems: Patient seen and examined by myself today in follow-up Objective vital signs Vital Sign Date Time Temp Pulse Resp B/P (MAP) Pulse Ox O2 Delivery O2 Flow Rate FiO2 06/25/24 10:31 119/66 06/25/24 09:33 91 18 06/25/24 09:00 98.0 98 98.0 06/25/24 08:00 Room Air* 0 21 Total Intake and Output 06/24/24 06/24/24 06/25/24 14:59 22:59 06:59 Intake Total 360 ml 740 ml 250 ml Balance 360 ml 740 ml 250 ml medications Current Medications Medications Dose Ordered Sig/Yanna Route Start Time Stop Time Status Last Admin Dose Admin Docusate Sodium 100 mg BIDPRN PRN PO 06/14/24 11:15 Diagnostic Test (Pha) 1 strip Q6HR 06/16/24 18:00 06/25/24 12:10 1 STRIP Insulin Human Regular Q6HR SC 06/16/24 18:00 06/25/24 12:10 9 UNITS Dextrose 50 ml UD PRN IV 06/16/24 14:45 Enoxaparin Sodium 40 mg DAILY SC 06/19/24 10:00 Hold 06/25/24 09:09 40 MG Insulin Glargine 15 units QAM SC 06/19/24 07:00 06/25/24 06:51 15 UNITS Acetaminophen 650 mg Q6HP PRN MD 06/20/24 06:00 06/20/24 06:59 650 MG Hydromorphone HCl 0.5 mg Q4HPRN PRN IV 06/20/24 17:30 06/25/24 09:03 0.5 MG Acetaminophen/ Hydrocodone Bitart 1 tab Q6HPRN PRN PO 06/20/24 17:30 06/25/24 10:38 1 TAB Throat Lozenges 1 veronica Q2HP PRN MT 06/21/24 11:15 06/24/24 05:41 1 VERONICA Gabapentin 300 mg TID PO 06/23/24 22:00 06/25/24 06:47 300 MG Furosemide 40 mg DAILY IV 06/24/24 10:00 06/25/24 10:31 40 MG Meropenem 50 ml @ 17 mls/hr Q12H IV 06/24/24 12:00 06/25/24 12:04 17 MLS/HR Examination: LUNGS:Normal, CVS:Normal, MSK:Normal laboratory and microbiology Laboratory Tests 06/25/24 10:30 Test 06/25/24 10:30 Range/Units Serum Glucose 260 H 74-106 mg/dL Microbiology Date/Time Source Procedure Growth Status 06/14/24 06:14 Blood Blood Culture - Final NO GROWTH AFTER 5 DAYS OF INCUBATION. Complete 06/14/24 06:02 Sputum Gram Stain - Final Complete 06/14/24 06:02 Sputum Respiratory Culture - Final Complete 06/14/24 05:56 Urine - Lerner Port Urine Culture - Final Complete Problem List/Assessment/Plan Problem List/Assessment/Plan Acute kidney injury hemodynamically mediated in setting of septic shock Chronic kidney disease stage IIIB: Dr. Short [facility] diabetic nephropathy History of coronary artery disease with diastolic heart failure Septic shock Urinary tract infection Acute respiratory failure /pna anemia endometrial Ca Recommendations Kidney function is improving Hyperkalemia resolved I agree with diuresis Avoid nephrotoxic medication IV antibiotics We will continue to follow up Plan discussed with: Patient Dietary Evaluation Review Comments: 1. Estimated needs is based on CKD3B, 2. TPN per pharmacy if NPO > 7 days 3. TF Nepro @35ml/hr providing 68g pro and 1487 kcal if EN/GI accessible 3 when pt is off vent and passing speech eval, advance to [facility] Renal specic with [facility]g protein restriction, [facility] Standard Diet if pt is on scheduled routine dialysis. Expected Outcomes/Goals: Gradual Wt loss, improved lab values SON ESCOBAR MD Jun 25, 2024 12:50
[2024-06-25] MEDS: CIPROFLOXACIN HCL 500 MG TAB PO SCH (23:07)
[2024-06-25] MEDS: INSULIN LANTUS (GLARGINE) 1 /0.01ml (100units/ml) SC SCH (23:09)
[2024-06-26] VITALS (8 sets, daily range): BP systolic 109–137; BP diastolic 50–81; PULSE 52–91; RESP 16–19; TEMP 97.6–98.3; O2SAT 90–98
[2024-06-26] MEDS: FUROSEMIDE 40 MG TAB PO SCH (10:14)
[2024-06-26 11:15] LABS: Lymphocytes % (auto) 27.1 % (10.0-50.0); Monocytes # (auto) 0.4 10 ^3/uL (0-1.3); Nucleated Red Blood Cells % 0.1 %
[2024-06-26 11:19] LABS: Basophils # (auto) 0.3 10 ^3/uL (0-0.2); Basophils % (auto) 3.8 % (0.0-2.0); Eosinophils # (auto) 0.5 10 ^3/uL (0-0.8); Eosinophils % (auto) 5.5 % (0.0-7.0); Hematocrit 26.3 % (36.0-46.0); Hemoglobin 8.9 g/dL (12.2-16.2); Lymphocytes # (auto) 2.3 10 ^3/uL (0.4-5.4); Mean Corpuscular Hemoglobin 30.7 pg (28.0-32.0); Mean Corpuscular Hgb Conc. 33.8 g/dL (32.0-36.0); Mean Corpuscular Volume 90.8 fL (80.0-100.0); Monocytes % (auto) 4.3 % (0.0-12.0); Neutrophils # (auto) 5.1 10 ^3/uL (1.6-8.6); Neutrophils % (auto) 59.3 % (37.0-80.0); Platelet Count (auto) 548 10^3/uL (140-450); Red Blood Cells 2.89 10^6/uL (4.0-5.20); Red Cell Distribution Width 13.3 % (11.8-14.3); White Blood Cell 8.5 10^3/uL (4.4-10.8)
[2024-06-26 11:29] LABS: Anion Gap 7 (5-15); Carbon Dioxide 26 mmol/L (20-31); Chloride 104 mmol/L (98-107); Sodium 137 mmol/L (136-145)
[2024-06-26 11:30] LABS: Calcium 9.4 mg/dL (8.7-10.4)
[2024-06-26 11:35] LABS: BUN/Creatinine Ratio 30.6 (10.0-20.0)
[2024-06-26 11:41] LABS: Glucose 147 mg/dL (74-106); Potassium 5.1 mmol/L (3.5-5.1)
[2024-06-26 11:42] LABS: Blood Urea Nitrogen 37 mg/dL (9-23)
--- NOTE | 2024-06-26 13:51 | DVHPN2 ---
Progress Note Date Seen: Jun 26, 2024 Medical Necessity Reason Pt with a Central, PICC or Fol: Yes The following are medically ne: Central Line, Lerner Catheter Reason for lerner catheter: Aydin. Abd Surgery, Strict I&O Subjective Patient reports: No new complaints Other Systems: Patient seen and examined by myself today in follow-up Objective vital signs Vital Sign Date Time Temp Pulse Resp B/P (MAP) Pulse Ox O2 Delivery O2 Flow Rate FiO2 06/26/24 13:00 98.1 83 19 110/58 (75) 90 98.1 06/26/24 07:30 Room Air* 0 21 Total Intake and Output 06/25/24 06/25/24 06/26/24 14:59 22:59 06:59 Intake Total 766 ml 250 ml Output Total 950 ml Balance 766 ml -700 ml medications Current Medications Medications Dose Ordered Sig/Yanna Route Start Time Stop Time Status Last Admin Dose Admin Docusate Sodium 100 mg BIDPRN PRN PO 06/14/24 11:15 Diagnostic Test (Pha) 1 strip Q6HR 06/16/24 18:00 06/26/24 12:15 1 STRIP Insulin Human Regular Q6HR SC 06/16/24 18:00 06/26/24 06:19 2 UNITS Dextrose 50 ml UD PRN IV 06/16/24 14:45 Acetaminophen 650 mg Q6HP PRN IN 06/20/24 06:00 06/20/24 06:59 650 MG Hydromorphone HCl 0.5 mg Q4HPRN PRN IV 06/20/24 17:30 06/25/24 23:11 0.5 MG Acetaminophen/ Hydrocodone Bitart 1 tab Q6HPRN PRN PO 06/20/24 17:30 06/26/24 10:14 1 TAB Throat Lozenges 1 veronica Q2HP PRN MT 06/21/24 11:15 06/24/24 05:41 1 VERONICA Gabapentin 300 mg TID PO 06/23/24 22:00 06/26/24 06:17 300 MG Insulin Glargine 15 units BID SC 06/25/24 22:00 06/26/24 10:17 15 UNITS Furosemide 40 mg DAILY PO 06/26/24 10:00 06/26/24 10:14 40 MG Ciprofloxacin 500 mg Q12HR PO 06/25/24 22:00 06/26/24 10:14 500 MG Examination: LUNGS:Normal, CVS:Normal, MSK:Normal laboratory and microbiology Laboratory Tests 06/26/24 10:12 Test 06/26/24 10:12 Range/Units Serum Glucose 147 H 74-106 mg/dL Microbiology Date/Time Source Procedure Growth Status 06/14/24 06:14 Blood Blood Culture - Final NO GROWTH AFTER 5 DAYS OF INCUBATION. Complete 06/14/24 06:02 Sputum Gram Stain - Final Complete 06/14/24 06:02 Sputum Respiratory Culture - Final Complete 06/14/24 05:56 Urine - Lerner Port Urine Culture - Final Complete Problem List/Assessment/Plan Problem List/Assessment/Plan Acute kidney injury hemodynamically mediated in setting of septic shock Chronic kidney disease stage IIIB: Dr. Short [facility] diabetic nephropathy History of coronary artery disease with diastolic heart failure Septic shock Urinary tract infection Acute respiratory failure /pna anemia endometrial Ca Recommendations Kidney function continues to improve Hyperkalemia resolved I agree with diuresis Avoid nephrotoxic medication IV antibiotics We will continue to follow up Plan discussed with: Patient Dietary Evaluation Review Comments: 1. Estimated needs is based on CKD3B, 2. TPN per pharmacy if NPO > 7 days 3. TF Nepro @35ml/hr providing 68g pro and 1487 kcal if EN/GI accessible 3 when pt is off vent and passing speech eval, advance to CCHO-60 Renal specic with 60g protein restriction, or CCHO-60 Renal Standard Diet if pt is on scheduled routine dialysis. Expected Outcomes/Goals: Gradual Wt loss, improved lab values SON ESCOBAR MD Jun 26, 2024 13:51
--- NOTE | 2024-06-26 17:00 | DVHPNRES ---
Progress Note Date Seen: Jun 26, 2024 Resident Creating Document: [place] RESIDENT Medical Necessity Reason Pt with a Central, PICC or Fol: No Subjective Review of Systems 49 year old female patient with past medical history of endometrial cancer status post hysterectomy, chronic diastolic heart failure, cerebrovascular accident type 2 diabetes, hyperlipidemia, hypertension myocardial infarction status post CABG. Who was brought to the emergency department with the chief complaint of generalized weakness and mechanical fall without loss of consciousness. Patient was started treatment for septic shock due to bilateral lower lobe pneumonia/UTI that was showed on urinalysis and chest x-rays. Patient developed acute hypoxemic respiratory failure requiring intubation. Patient was extubated on 06/19/2024 and currently downgraded to telemetry. CT head was unremarkable, echocardiogram showed ejection fraction 55%, sanchez cultures were negative. Patient still on antibiotics, currently on ciprofloxacine 500 mg PO. Laboratory results today showed Hb on 8.9 mg/dL Lovenox was held for now. Patient is able to stand up and is currently on physical therapy. A creatinine levels went down from 2.15 to 1.73 and potassium went down from 5.4 to 5 after Lokelma. [employer] Professor are currently working on home health services, pending. Based on recent glucose levels, Lantus 15 will be given b.i.d. ABG with CO/OX, patient refused Transferred to [facility]. CMP (06/26) was 5,1, possible DC tomorrow after potassium level normalize. Lokelma was given. Review of systems: Constitutional: Morbidly obese, disheveled on moderate acute distress No: Fever, Chills, Sweats, Weakness, Malaise, Other Eyes: No: Pain, Vision change, Conjunctivae inflammation, Eyelid inflammation, Other, Redness ENT: No: Ear pain, Ear discharge, Nose pain, Nose discharge, Nose congestion, Mouth pain, Mouth swelling, Throat pain, Throat swelling, Other Respiratory: Cough present, Shortness of breath currently on nasal cannula 2 L, improving No Wheezing, Hemoptysis, Pleuritic Pain, Sputum, Wheezing, Other Cardiovascular: : Orthopnea, 1+ lower extremity edema, paroxysmal nocturnal dyspnea Gastrointestinal: No: Nausea, Vomiting, Abdominal Pain, Diarrhea, Constipation, Melena, Hematochezia, Other Musculoskeletal: No: other, neck pain, shoulder pain, arm pain, back pain, hand pain, leg pain, foot pain Neurological:; yes: Bilateral lower extremity pain, likely neuropathic Patient reports: No new complaints Patient reports: No new complaints Changes from previous H/P or p: No Changes Objective vital signs Vital Sign Date Time Temp Pulse Resp B/P (MAP) Pulse Ox O2 Delivery O2 Flow Rate FiO2 06/26/24 13:00 98.1 83 19 110/58 (75) 90 98.1 06/26/24 07:30 Room Air* 0 21 Total Intake and Output 06/25/24 06/25/24 06/26/24 15:00 23:00 07:00 Intake Total 766 ml 250 ml Output Total 950 ml Balance 766 ml -700 ml medications Current Medications Medications Dose Ordered Sig/Yanna Route Start Time Stop Time Status Last Admin Dose Admin Docusate Sodium 100 mg BIDPRN PRN PO 06/14/24 11:15 Diagnostic Test (Pha) 1 strip Q6HR 06/16/24 18:00 06/26/24 12:15 1 STRIP Insulin Human Regular Q6HR SC 06/16/24 18:00 06/26/24 06:19 2 UNITS Dextrose 50 ml UD PRN IV 06/16/24 14:45 Acetaminophen 650 mg Q6HP PRN NE 06/20/24 06:00 06/20/24 06:59 650 MG Hydromorphone HCl 0.5 mg Q4HPRN PRN IV 06/20/24 17:30 06/25/24 23:11 0.5 MG Acetaminophen/ Hydrocodone Bitart 1 tab Q6HPRN PRN PO 06/20/24 17:30 06/26/24 15:38 1 TAB Throat Lozenges 1 veronica Q2HP PRN MT 06/21/24 11:15 06/24/24 05:41 1 VERONICA Gabapentin 300 mg TID PO 06/23/24 22:00 06/26/24 06:17 300 MG Insulin Glargine 15 units BID SC 06/25/24 22:00 06/26/24 10:17 15 UNITS Ciprofloxacin 500 mg Q12HR PO 06/25/24 22:00 06/26/24 10:14 500 MG Furosemide 20 mg DAILY PO 06/27/24 10:00 Examination General Appearance: Alert, Oriented X3, Cooperative, moderate acute distress due to lower extremities pain. HEENT: EOMI Respiratory: On oxygen supplementation through nasal cannula 2L, crackles, rales, no wheezing Cardiovascular: Regular rate, Normal S1, Normal S2 Abdominal: Normal bowel sounds Extremities: No cyanosis, lower extremity edema 1+, Normal pulses, No tenderness/swelling Skin: No rashes, No breakdown Neuro: Normal speech, Strength at 3/5 X lower extremities, severe burning pain from the hip to toes , Normal tone, decreased sensation in lower extremities Psych/Mental Status: Mental status NL, Mood NL laboratory and microbiology Laboratory Tests 06/26/24 10:12 Test 06/26/24 10:12 Range/Units Serum Glucose 147 H 74-106 mg/dL Microbiology Date/Time Source Procedure Growth Status 06/14/24 06:14 Blood Blood Culture - Final NO GROWTH AFTER 5 DAYS OF INCUBATION. Complete 06/14/24 06:02 Sputum Gram Stain - Final Complete 06/14/24 06:02 Sputum Respiratory Culture - Final Complete 06/14/24 05:56 Urine - [place] Port Urine Culture - Final Complete Problem List/Assessment/Plan Problem List/Assessment/Plan Neurology # Mechanical fall without LOC # Acute toxic or metabolic encephalopathy likely due to sepsis # H/o CVA - CT showed no acute changes - PT onboard Cardiology # Hypotension # Shock likely due to sepsis from UTI vs PNA # HLD # H/O [place] # Acute cornoary syndrome s/p CABG # Acute on chronic diastolic heart failure exacerbation - Echo showed EF 55% with a grade 2 diastolic dysfunction - ciprofloxacin 500 mg p.o. - Lasix p.o. 40 mg Respiratory # Acute hypoxic respiratory failure likely due to sepsis s/p intubation- Extubated 06/19 # ? Acute G+/- bacterial PNA - CXR showed left basilar opacities - Extubated 06/19, currently downgraded to telemetry - ciprofloxacin 500 mg p.o. - Currently on room air GI/Liver/ Abdomen # Morbid Obesity BMI 44.7 - Nutrional councelling /Kidney/Reproductive # Acute kidney injury hemodynamically mediated in setting of septic shock # Chronic kidney disease stage IIIB # Nephrotic syndrome secondary to diabetic nephropathy - monitor lab - avoid nephrotoxic agents - Strict Is&Os - Avoid hypotension - Glycemic control # acute complicated UTI - evident on urinalysis - currently on antibiotics - cultures ordered, negative MSK Endocrine/Metabolic # uncontrolled type 2 DM with a HGB A1c 13.7 - Accu-Cheks and aggressive ISS - Lantus 15 subcutaneous, b.i.d. - Cortisol levels Heme-Onc # Anemia of chronic disease, Hb 8.9 mg/dL # H/O Endometrial cancer - S/p hysterectomy - monitor lab Skin - port catheter Lines Intubated 06/14 Extubated 06/19 Right Femoral CVC 06/14 Ewing 06/14 Ewing DC 06/22 Drips None PUD PPX : Protonix VTE PPX : Lovenox held Diet: Mechanical soft Goals of care discussed with the family for more than 21 minutes: Full code status Plan of care updated to niece at bedside. Case discussed with . Plan discussed with: Patient, Other (niece) Dietary Evaluation Review Comments: 1. Estimated needs is based on CKD3B, 2. TPN per pharmacy if NPO > 7 days 3. TF Nepro @35ml/hr providing 68g pro and 1487 kcal if EN/GI accessible 3 when pt is off vent and passing speech eval, advance to [facility]-60 Renal specic with 60g protein restriction, or [facility] Renal Standard Diet if pt is on scheduled routine dialysis. Expected Outcomes/Goals: Gradual Wt loss, improved lab values Date of Service: Jun 26, 2024 Billing Provider: MARIA TERESA VERNON MD Common Visit Codes: [id number] INP/OBS CARE(HIGH) Secondary Visit Codes: [id number] CARE PLAN 30 MINUTES [place] CAMPOVER[place] RESIDENT Jun 26, 2024 17:00 MARIA TERESA VERNON MD Jun 27, 2024 15:20
[2024-06-26] MEDS: SODIUM ZIRCONIUM CYCL 10 GM PAK PO ONE (20:39)
[2024-06-27 01:00] VITALS: BP 101/45; PULSE 89; RESP 18; TEMP 98.4; O2SAT 96
[2024-06-27 05:00] VITALS: BP 125/80; PULSE 87; RESP 18; TEMP 97.8; O2SAT 93
[2024-06-27 09:00] VITALS: BP 97/51; PULSE 87; RESP 15; TEMP 98; O2SAT 95
[2024-06-27] MEDS: FUROSEMIDE 40 MG TAB PO SCH (10:11)
[2024-06-27 11:15] LABS: Eosinophils # (auto) 0.4 10 ^3/uL (0-0.8); Eosinophils % (auto) 4.8 % (0.0-7.0); Hemoglobin 8.2 g/dL (12.2-16.2); Monocytes # (auto) 0.6 10 ^3/uL (0-1.3)
[2024-06-27 11:22] LABS: Basophils # (auto) 0.1 10 ^3/uL (0-0.2); Basophils % (auto) 0.6 % (0.0-2.0); Hematocrit 24.8 % (36.0-46.0); Lymphocytes # (auto) 1.9 10 ^3/uL (0.4-5.4); Lymphocytes % (auto) 22.7 % (10.0-50.0); Mean Corpuscular Hemoglobin 30.3 pg (28.0-32.0); Mean Corpuscular Hgb Conc. 33.1 g/dL (32.0-36.0); Mean Corpuscular Volume 91.5 fL (80.0-100.0); Neutrophils # (auto) 5.5 10 ^3/uL (1.6-8.6); Neutrophils % (auto) 64.9 % (37.0-80.0); Nucleated Red Blood Cells % 0.1 %; Platelet Count (auto) 509 10^3/uL (140-450); Red Blood Cells 2.72 10^6/uL (4.0-5.20); Red Cell Distribution Width 13.1 % (11.8-14.3); White Blood Cell 8.5 10^3/uL (4.4-10.8)
--- NOTE | 2024-06-27 11:22 | DVHPN2 ---
Progress Note Date Seen: Jun 27, 2024 Medical Necessity Reason Pt with a Central, PICC or Fol: Yes The following are medically ne: Central Line, Lerner Catheter Reason for lerner catheter: Aydin. Abd Surgery, Strict I&O Subjective Patient reports: No new complaints Other Systems: Patient seen and examined by myself today in follow-up Objective vital signs Vital Sign Date Time Temp Pulse Resp B/P (MAP) Pulse Ox O2 Delivery O2 Flow Rate FiO2 06/27/24 11:13 90 18 134/77 06/27/24 09:00 98.0 95 98.0 06/27/24 08:00 Room Air* 0 21 Total Intake and Output 06/26/24 06/26/24 06/27/24 15:00 23:00 07:00 Intake Total 300 ml 800 ml Output Total 1700 ml 750 ml Balance -1400 ml 50 ml medications Current Medications Medications Dose Ordered Sig/Yanna Route Start Time Stop Time Status Last Admin Dose Admin Docusate Sodium 100 mg BIDPRN PRN PO 06/14/24 11:15 Diagnostic Test (Pha) 1 strip Q6HR 06/16/24 18:00 06/27/24 07:08 1 STRIP Insulin Human Regular Q6HR SC 06/16/24 18:00 06/27/24 07:12 3 UNITS Dextrose 50 ml UD PRN IV 06/16/24 14:45 Acetaminophen 650 mg Q6HP PRN IN 06/20/24 06:00 06/20/24 06:59 650 MG Hydromorphone HCl 0.5 mg Q4HPRN PRN IV 06/20/24 17:30 06/27/24 11:13 0.5 MG Acetaminophen/ Hydrocodone Bitart 1 tab Q6HPRN PRN PO 06/20/24 17:30 06/27/24 07:09 1 TAB Throat Lozenges 1 veronica Q2HP PRN MT 06/21/24 11:15 06/24/24 05:41 1 VERONICA Gabapentin 300 mg TID PO 06/23/24 22:00 06/27/24 07:08 300 MG Insulin Glargine 15 units BID SC 06/25/24 22:00 06/27/24 10:16 15 UNITS Ciprofloxacin 500 mg Q12HR PO 06/25/24 22:00 06/27/24 10:09 500 MG Furosemide 20 mg DAILY PO 06/27/24 10:00 06/27/24 10:11 20 MG Examination: LUNGS:Normal, CVS:Normal, MSK:Normal laboratory and microbiology Test 06/27/24 10:57 Range/Units Serum Glucose Pending Microbiology Date/Time Source Procedure Growth Status 06/14/24 06:14 Blood Blood Culture - Final NO GROWTH AFTER 5 DAYS OF INCUBATION. Complete 06/14/24 06:02 Sputum Gram Stain - Final Complete 06/14/24 06:02 Sputum Respiratory Culture - Final Complete 06/14/24 05:56 Urine - Lerner Port Urine Culture - Final Complete Problem List/Assessment/Plan Problem List/Assessment/Plan Acute kidney injury hemodynamically mediated in setting of septic shock Chronic kidney disease stage IIIB: Dr. Deja kaplan diabetic nephropathy History of coronary artery disease with diastolic heart failure Septic shock Urinary tract infection Acute respiratory failure /pna anemia endometrial Ca Recommendations Kidney function continues to improve Increased urine output Hyperkalemia resolved I agree with diuresis Avoid nephrotoxic medication IV antibiotics We will continue to follow up Plan discussed with: Patient Dietary Evaluation Review Comments: 1. Estimated needs is based on CKD3B, 2. TPN per pharmacy if NPO > 7 days 3. TF Nepro @35ml/hr providing 68g pro and 1487 kcal if EN/GI accessible 3 when pt is off vent and passing speech eval, advance to CCHO-60 Renal specic with 60g protein restriction, or CCHO-60 Renal Standard Diet if pt is on scheduled routine dialysis. Expected Outcomes/Goals: Gradual Wt loss, improved lab values SON ESCOBAR MD Jun 27, 2024 11:22
[2024-06-27 12:03] LABS: Anion Gap 6 (5-15); Carbon Dioxide 27 mmol/L (20-31); Chloride 104 mmol/L (98-107); Potassium 4.9 mmol/L (3.5-5.1); Sodium 137 mmol/L (136-145)
[2024-06-27 12:10] LABS: BUN/Creatinine Ratio 23.1 (10.0-20.0)
[2024-06-27 12:14] LABS: Blood Urea Nitrogen 33 mg/dL (9-23); Glucose 205 mg/dL (74-106)
[2024-06-27 13:00] VITALS: BP 126/63; PULSE 86; RESP 16; TEMP 98.2; O2SAT 95
[2024-06-27] MEDS ORDERED: OXYC-962 PO (15:22)
[2024-06-27] MEDS ORDERED: CIP500T PO (15:22)
--- NOTE | 2024-06-27 20:42 | DVHDSRES ---
Discharge Summary Date of Admission Resident Creating Document: CLEVELAND CAMPOVERDE RESIDENT Jun 14, 2024 at 11:13 Date of Discharge: Jun 27, 2024 Admitting Diagnosis Acute hypoxemic respiratory failure requiring intubation DKA Toxic/metabolic encephalopathy Labs/Diagnostic Data: Laboratory Results Test 06/27/24 11:33 06/27/24 10:57 06/27/24 00:00 06/23/24 06:23 POC Glucose 195 mg/dl (70-106) White Blood Count 8.5 10^3/uL (4.4-10.8) Red Blood Count 2.72 10^6/uL (4.0-5.20) Hemoglobin 8.2 g/dL (12.2-16.2) Hematocrit 24.8 % (36.0-46.0) Mean Corpuscular Volume 91.5 fL (80.0-100.0) Mean Corpuscular Hemoglobin 30.3 pg (28.0-32.0) Mean Corpuscular Hemoglobin Concent 33.1 g/dL (32.0-36.0) Red Cell Distribution Width 13.1 % (11.8-14.3) Platelet Count 509 10^3/uL (140-450) Mean Platelet Volume 7.0 fL (6.9-10.8) Neutrophils (%) (Auto) 64.9 % (37.0-80.0) Lymphocytes (%) (Auto) 22.7 % (10.0-50.0) Monocytes (%) (Auto) 7.0 % (0.0-12.0) Eosinophils (%) (Auto) 4.8 % (0.0-7.0) Basophils (%) (Auto) 0.6 % (0.0-2.0) Neutrophils # (Auto) 5.5 10 ^3/uL (1.6-8.6) Lymphocytes # (Auto) 1.9 10 ^3/uL (0.4-5.4) Monocytes # (Auto) 0.6 10 ^3/uL (0-1.3) Eosinophils # (Auto) 0.4 10 ^3/uL (0-0.8) Basophils # (Auto) 0.1 10 ^3/uL (0-0.2) Nucleated Red Blood Cells 0.1 % Sodium Level 137 mmol/L (136-145) Potassium Level 4.9 mmol/L (3.5-5.1) Chloride Level 104 mmol/L (98-107) Carbon Dioxide Level 27 mmol/L (20-31) Anion Gap 6 (5-15) Blood Urea Nitrogen 33 mg/dL (9-23) Creatinine 1.43 mg/dL (0.550-1.02) Glomerular Filtration Rate Calc 45 mL/min (>90) BUN/Creatinine Ratio 23.1 (10.0-20.0) Serum Glucose 205 mg/dL (74-106) Calcium Level 9.0 mg/dL (8.7-10.4) Magnesium Level 2.0 mg/dL (1.6-2.6) Total Bilirubin < 0.2 mg/dL (0.2-1.0) Aspartate Amino Transferase (AST) 10 U/L (13-40) Alanine Aminotransferase (ALT) < 9 U/L (7-40) Alkaline Phosphatase 97 U/L (46-116) Total Protein 6.4 g/dL (5.7-8.2) Albumin 3.4 g/dL (3.2-4.8) Test 06/19/24 11:30 06/19/24 08:34 06/19/24 05:13 06/18/24 11:05 Stool Occult Blood Negative (Negative) Stool Occult Blood Sample #3 (Negative) Blood Gas Specimen Type Arterial Blood Gas Sample Site Left radial Blood Gas Patient Temperature 37.0 Arterial Blood Date Drawn [id number] Arterial Blood pH 7.399 (7.350-7.450) Arterial Blood Partial Pressure CO2 40.0 mmHg (32.0-45.0) Arterial Blood Partial Pressure O2 70.1 mmHg (83.0-108.0) Arterial Blood HCO3 24.2 mmol/L (21.0-28.0) Arterial Blood Oxygen Saturation 93.1 % (94.0-98.0) Arterial Blood Base Excess -0.6 mmol/L (-2.0-3.0) Arterial Blood Oxyhemoglobin 92.2 % (94.0-98.0) Arterial Blood Carboxyhemoglobin 0.2 % (0.5-1.5) Arterial Blood Methemoglobin 0.8 % (0.0-1.5) Stephane Test Modified Blood Gas Total Hemoglobin 9.10 g/dL (12.0-16.0) Blood Gas Modality Vent - cpap FiO2 % 30.0 Blood Gas Pressure Support 8 Blood Gas PEEP or CPAP 5.0 Random Vancomycin Level 16.5 ug/mL (5-10) Prothrombin Time 10.8 sec (9.3-11.8) Prothrombin Time INR 1.02 (0.9-1.15) Activated Partial Thromboplast Time 30.0 SEC (24.5-34.5) Test 06/18/24 07:22 06/18/24 03:18 06/16/24 09:54 06/15/24 15:15 Blood Gas Set Respiration Rate 18.0 Blood Gas Tidal Volume 500.0 Hemoglobin A1c 13.7 % A1C (<5.7) Thyroid Stimulating Hormone (TSH) 4.61 uIU/mL (0.55-4.78) Iron Level 32 ug/dL (50-170) Total Iron Binding Capacity 202 ug/dL (250-425) Percent Iron Saturation 15.8 % (15-50) Ferritin 349.2 ng/mL (10-291) Influenza Type A Antigen Negative (Negative) Influenza Type B Antigen Negative (Negative) SARS-CoV-2 Antigen (Rapid) Negative (NEGATIVE) Test 06/14/24 14:30 06/14/24 11:33 06/14/24 08:54 06/14/24 05:56 Troponin I High Sensitivity 31 ng/L (</=34) Lactic Acid Level 2.0 mmol/L (0.4-2.0) Blood Gas Critical Value Read Back Yes Blood Gas Notified Whom ligia Hannah Blood Gas Notified Time [id number] Blood Gas Notified By [employer] Technician cheri jordan Urine Color Colorless (Yellow) Urine Clarity Ex.turbid (Clear) Urine pH 6.0 (5.0-9.0) Urine Specific [place] 1.007 (1.001-1.035) Urine Protein 2+ (Negative) Urine Ketones Negative (Negative) Urine Blood 2+ /uL (Negative) Urine Nitrite Negative (Negative) Urine Bilirubin Negative (Negative) Urine Urobilinogen Normal mg/dL (Negative) Urine Leukocyte Esterase 3+ /uL (Negative) Urine RBC 10 /hpf (0 - 4) Urine WBC Clumps Present /hpf (None Seen) Urine Microscopic WBC 1589 /HPF (0-5) Urine Squamous Epithelial Cells None seen /hpf (<5) Urine Bacteria None seen /hpf (None Seen) Urine Creatinine 13.77 mg/dL (30.0-125.0) Urine Sodium 126 mmol/L (40-220) Urine Glucose 3+ mg/dL (Normal) Urine Opiates Screen Neg (NEGATIVE) Urine Fentanyl Screen Neg (NEGATIVE) Urine Barbiturates Screen Neg (NEGATIVE) Urine Phencyclidine Screen Neg (NEGATIVE) Urine Amphetamines Screen Neg (NEGATIVE) Urine Benzodiazepines Screen Neg (NEGATIVE) Urine Cocaine Screen Neg (NEGATIVE) Urine Cannabinoids Screen Neg (NEGATIVE) Test 06/14/24 04:59 B-Type Natriuretic Peptide 47.28 pg/mL (0-100) Lipase 124 U/L (12-53) Beta HCG, Quantitative 1.4 mIU/mL (1.5-4.2) Plasma/Serum Blood Alcohol < 3.0 mg/dL (<10) Other Laboratory Tests 06/27/24 10:57 Brief Hx & Hospital Course: Hospital Course The patient is a 49-year-old female with a significant past medical history of endometrial cancer status post-hysterectomy, chronic diastolic heart failure, cerebrovascular accident, type 2 diabetes, hyperlipidemia, and hypertension with a history of myocardial infarction status post-CABG. She presented to the hospital with generalized weakness and mechanical fall without loss of consciousness. Workup revealed septic shock secondary to bilateral lower lobe pneumonia and a UTI, confirmed by urinalysis and chest X- rays. The patient required intubation and mechanical ventilation for acute hypoxemic respiratory failure.The patient was successfully extubated on 06/19/2024 and has since been on supplemental oxygen at 2L via nasal cannula. A CT head was unremarkable, and echocardiogram showed an ejection fraction of 55%. Alfonso cultures were negative, and the patient was started on ciprofloxacin 500 mg PO for the UTI. disabilities services officer were involved in arranging home health services, and the patient has been participating in physical therapy with improved mobility. ABG was recommended to the patient for home oxygen evaluation but the patient refused at this time, patient showed improvement overall during hospitalization, she was discharged home in stable condition. Discharge Condition The patient is clinically stable at the time of discharge, tolerating oral intake, and able to stand and ambulate with assistance. Discharge Medications 1. Ciprofloxacin 500 mg PO Continue for UTI treatment 2. Oxycodone p.o.-for pain control Follow-Up Plan & Recommendations Primary Care Follow-Up: Within one week to reassess overall recovery and medication adjustments Home Health Services: disabilities services officer arranging assistance for continued recovery at home Case discussed with Dr. Ojeda Goals of care discussed with the patient and niece for 47 minutes. Operations or Procedures [place] [address] Ph: [phone] DIAGNOSTIC IMAGING Diagnostic Imaging Report : [id number] Signed PATIENT: CATRACHITO RAMIREZ ACCT: [id number] UNIT: [id number] : 1975 LOC: [facility] ROOM / BED: 0279T / A AGE / SEX: 49 / F ADM STATUS: ADM IN SERVICE 16 ORDERING PHYSICIAN: EMERALD WINTER MD PROCEDURE(s): BLDVT - BiLat Lower DVT REASON: pain with ambulation. ORDER NUMBER(s): [id number], ACCESSION NUMBER(s): [id number] CLINICAL HISTORY: pain with ambulation. TECHNIQUE: Color and duplex doppler imaging of the bilateral lower extremity veins was performed. Vessel compression if possible was also performed. WID: COMPARISON: US BILAT LOWER DVT on DOS: 02/22/24 FINDINGS: Right Lower Extremity: Right common femoral vein: Normal compressibility and flow. Right femoral vein: Normal compressibility and flow. Right popliteal vein: Normal compressibility and flow. Proximal calf veins are normally compressible. Left Lower Extremity: Left common femoral vein: Normal compressibility and flow. Left femoral vein: Normal compressibility and flow. Left popliteal vein: Normal compressibility and flow. Proximal calf veins are normally compressible. IMPRESSION: NO SONOGRAPHIC EVIDENCE FOR DEEP VENOUS THROMBOSIS IN THE BILATERAL LOWER EXTREMITY VEINS. ATED BY: KASANDRA QUIROZ MD DICTATED DATE/TIME: 06/24/242027 SIGNED BY: KASANDRA QUIROZ MD SIGNED DATE/TIME: 06/24/242027 CC: [address] [id number] Ph: [phone] DIAGNOSTIC IMAGING Diagnostic Imaging Report : [id number] Signed PATIENT: CATRACHITO RAMIREZ ACCT: [id number] UNIT: [id number] : 1975 LOC: OVERFLOW ROOM / BED: 1012-ER / A AGE / SEX: 49 / F ADM STATUS: ADM IN SERVICE 0 ORDERING PHYSICIAN: ROSCOE REECE MD PROCEDURE(s): CXRP - CHEST PORTABLE REASON: intubated ORDER NUMBER(s): [id number], ACCESSION NUMBER(s): [id number] EXAM: XR Chest, 1 View CLINICAL INDICATION: intubated TECHNIQUE: Frontal view of the chest. COMPARISON: XY CHEST PORTABLE on DOS: 06/14/24, XY CHEST XRAY 1 VIEW on DOS: 06/14/24, XY CHEST PORTABLE on DOS: 02/22/24, XY CHEST XRAY 1 VIEW on DOS: 01/12/24 FINDINGS: LUNGS AND PLEURAL SPACES: See below. HEART: Cardiomegaly with mild congestion. MEDIASTINUM: Unremarkable. Normal mediastinal contour. BONES/JOINTS: Unremarkable. No acute fracture. TUBES, LINES AND DEVICES: Right-sided Mediport with the distal tip in the SVC. No pneumothorax. The endotracheal tube (ETT) is in satisfactory position. Enteric tube tip in the stomach. OTHER FINDINGS: . . IMPRESSION: Cardiomegaly with mild congestion. ATED BY: JULIANNA RILEY MD DICTATED DATE/TIME: 06/16/24904 SIGNED BY: JULIANNA IRLEY MD SIGNED DATE/TIME: 06/16/24904 CC: [place] [address] Ph: [phone] DIAGNOSTIC IMAGING Diagnostic Imaging Report : [id number] Signed PATIENT: CATRACHITO RAMIREZ ACCT: [id number] UNIT: [id number] : 1975 LOC: OVERFLOW ROOM / BED: [facility]-ER / A AGE / SEX: 49 / F ADM STATUS: ADM IN SERVICE 17 ORDERING PHYSICIAN: STARLA STANLEY DNP PROCEDURE(s): CXRP - CHEST PORTABLE REASON: Diminished (L)lung sound ORDER NUMBER(s): [id number], ACCESSION NUMBER(s): [id number] EXAM: XY CHEST PORTABLE TECHNIQUE: Single frontal chest radiograph CLINICAL HISTORY: Diminished (L)lung sound COMPARISON: XY CHEST XRAY 1 VIEW on DOS: 06/14/24, XY CHEST PORTABLE on DOS: 02/22/24, XY CHEST XRAY 1 VIEW on DOS: 01/12/24 Findings/Impression: Frontal chest radiograph demonstrates no acute osseous or superficial soft tissue abnormalities. Endotracheal tube terminates 2.3 cm from the karen. Recommend retracting 3 cm for more optimal positioning. Right chest wall port terminates in the right atrium. Enteric tube is overlying the plane of the stomach. The trachea is midline. The cardiac silhouette and mediastinum are within normal limits. Bibasilar atelectasis. No pneumothorax, pleural effusions, or consolidations. ATED BY: RAIN KING DO DICTATED DATE/TIME: 06/14/242101 SIGNED BY: RAIN KING DO SIGNED DATE/TIME: 06/14/242101 CC: [place] [address] Ph: [phone] DIAGNOSTIC IMAGING Diagnostic Imaging Report : [id number] Signed PATIENT: CATRACHITO RAMIREZ ACCT: [id number] UNIT: [id number] : 1975 LOC: ER ROOM / BED: / AGE / SEX: 49 / F ADM STATUS: REG ER SERVICE 0554 ORDERING PHYSICIAN: CARLOS NICOLE MD PROCEDURE(s): CTCAP - CHST AB PEL WO CON-NO IV/ORAL REASON: pain, altered, intubated ORDER NUMBER(s): [id number], ACCESSION NUMBER(s): [id number] EXAM: CT CHST AB PEL WO CON-NO IV/ORAL History: pain, altered, intubated Comparison Study: None available at time of dictation. TECHNIQUE: Multidetector CT of the chest, abdomen and pelvis was performed from lower neck to pubic symphysis without the use of intravenous contrast. Axial, coronal and sagittal multiplanar reformats were performed by the technologist on a separate workstation. Radiation Dose Information: CT Dose: CTDI volume is 29.6 mGy. Dose-length product is 2055. mGy*cm FINDINGS: Support lines and tubes: Right central venous catheter terminates in the superior vena cava. The endotracheal tube terminates above the karen. The enteric tube terminates in the stomach. Lower neck: Normal thyroid. Lungs: Bilateral lower lobe consolidation with air bronchograms. No pulmonary nodule or mass. Pleura: No pleural effusion or significant pneumothorax. Central airways: Patent. Heart/Vascular Structures: Normal heart size. Postsurgical changes in the heart. No pericardial effusion. Normal caliber thoracic aorta and main pulmonary artery. Lymph Nodes: No adenopathy. Liver: The liver is normal in size. No intrahepatic biliary ductal dilatation. Gallbladder and Biliary Tree: Cholecystectomy. No dilatation of the common bile duct. Spleen: Unremarkable. Pancreas: Unremarkable. Adrenal Glands: Unremarkable. Kidneys: No renal calculi or hydronephrosis. Bladder: Ewing catheter in the decompressed urinary bladder.. Stomach and bowel: Stomach is unremarkable. No bowel wall thickening or dilatation. The appendix is visualized and is normal. Peritoneum: No ascites or pneumoperitoneum. Lymphadenopathy: No enlarged lymph nodes. Vasculature: The visualized abdominal aorta is normal in size and caliber. Evaluation of the vascular structures is limited due to lack of intravenous contrast. Pelvic Organs: Unremarkable. Musculoskeletal: No acute osseous abnormality. Status post CABG. Soft tissues: Soft tissue stranding in the midline abdominal wall. IMPRESSION: 1. No acute traumatic injury in the chest, abdomen or pelvis. 2. Bilateral lower lobe consolidations which may reflect aspiration in the appropriate clinical setting. All CT scans at this medical facility are performed using dose modulation techniques as appropriate to a performed exam including the following: Automated exposure control was utilized; adjustment of the MA and/or KV according to patient size; and use of iterative reconstruction technique. ATED BY: AZUL KESSLER MD DICTATED DATE/TIME: 06/14/241048 SIGNED BY: AZUL KESSLER MD SIGNED DATE/TIME: 06/14/241048 CC: [place] [address] Ph: [phone] DIAGNOSTIC IMAGING Diagnostic Imaging Report : [id number] Signed PATIENT: CATRACHITO RAMIREZ ACCT: [id number] UNIT: [id number] : 1975 LOC: ER ROOM / BED: / AGE / SEX: 49 / F ADM STATUS: REG ER SERVICE [id number] ORDERING PHYSICIAN: CARLOS NICOLE MD PROCEDURE(s): CXR1 - CHEST XRAY 1 VIEW REASON: POST INTUBATION ORDER NUMBER(s): [id number], ACCESSION NUMBER(s): [id number] EXAM: XR Chest, 1 View CLINICAL INDICATION: POST INTUBATION TECHNIQUE: Frontal view of the chest. COMPARISON: XY CHEST PORTABLE on DOS: 02/22/24, XY CHEST XRAY 1 VIEW on DOS: 01/12/24 FINDINGS: LUNGS AND PLEURAL SPACES: See below. HEART: Cardiomegaly with pulmonary congestion and edema. Superimposed pneumonia cannot be excluded. MEDIASTINUM: Unremarkable. Normal mediastinal contour. BONES/JOINTS: Unremarkable. No acute fracture. TUBES, LINES AND DEVICES: ETT placement with the distal tip 0.7 cm from the karen. Retraction by 1-2 cm may be beneficial. Right internal jugular central venous catheter tip in the superior vena cava. Right-sided Mediport with the distal tip in the SVC. No pneumothorax. Enteric tube tip in the stomach. OTHER FINDINGS: . . IMPRESSION: 1. ETT placement with the distal tip 0.7 cm from the karen. Retraction by 1-2 cm may be beneficial. 2. Cardiomegaly with pulmonary congestion and edema. Superimposed pneumonia cannot be excluded. ATED BY: JULIANNA RILEY MD DICTATED DATE/TIME: 06/14/24611 SIGNED BY: JULIANNA RILEY MD SIGNED DATE/TIME: 06/14/24611 CC: [place] [address] Ph: [phone] DIAGNOSTIC IMAGING Diagnostic Imaging Report : [id number] Signed PATIENT: CATRACHITO RAMIREZ ACCT: [id number] UNIT: [id number] : 1975 LOC: ER ROOM / BED: / AGE / SEX: 49 / F ADM STATUS: REG ER SERVICE 0432 ORDERING PHYSICIAN: CARLOS NICOLE MD PROCEDURE(s): HWOCT - HEAD WITHOUT CONTRAST REASON: fall, hypotensive, altered ORDER NUMBER(s): [id number], ACCESSION NUMBER(s): [id number] EXAM: CT HEAD WITHOUT CONTRAST HISTORY: fall, hypotensive, altered COMPARISON: None TECHNIQUE: Axial images of the head were obtained and reformatted in coronal and sagittal planes. All CT scans at this medical facility are performed using dose modulation techniques as appropriate to a performed exam including the following: Automated exposure control was utilized; adjustment of the MA and/or KV according to patient size; and use of iterative reconstruction technique. CT Dose: CTDI volume is 67 mGy. Dose-length product is 1321 mGy*cm FINDINGS: There is no evidence of acute intracranial hemorrhage, mass, mass effect midline shift. There is no hydrocephalus or extra-axial fluid collection. [place]-white matter differentiation is maintained. The visualized paranasal sinuses and mastoid air cells are clear. The calvarium is intact. IMPRESSION: 1. No acute intracranial process. HS:Y ATED BY: SANDHYA LOU MD DICTATED DATE/TIME: 06/14/24 104 SIGNED BY: SANDHYA LOU MD SIGNED DATE/TIME: 06/14/24 104 CC: Condition at Discharge: Fair Final Diagnosis/Problems List # Mechanical fall without LOC # Acute toxic or metabolic encephalopathy likely due to sepsis # H/o CVA # Hypotension # Shock likely due to sepsis from UTI vs PNA # HLD # H/O CO # Acute cornoary syndrome s/p CABG # Acute on chronic diastolic heart failure exacerbation # Acute hypoxic respiratory failure likely due to sepsis s/p intubation- Extubated 06/19 # ? Acute G+/- bacterial PNA # Morbid Obesity BMI 44.7 # Acute kidney injury hemodynamically mediated in setting of septic shock # Chronic kidney disease stage IIIB # Nephrotic syndrome secondary to diabetic nephropathy # acute complicated UTI # uncontrolled type 2 DM with a HGB A1c 13.7 # Anemia of chronic disease, Hb 8.9 mg/dL # H/O Endometrial cancer #hyperkalemia #JERROD Discharge Disposition: Home with Health Services SNF Discharge Will this Physician continue t: No Discharge Instruct/Medications Diet: Cardiac 2g Na,low cholest Activity: No Restrictions, As Tolerated Follow Up/Referral: Follow-up with PCP within 1-2 weeks Medications: Script to pharmacy Discharge Statement: "Patient was advised to return to the ER or call 911 if any headaches, dizziness, shortness of breath, chest pain, abdominal pain, bleeding, fevers, or worsening of medical condition. Patient was counseled about treatment plan, medications, possible side effects, patientverbalized understanding. All questions were answered to the best of my ability. This discharge took greater then 30 minutes in planning, reviewing documentation, counseling the patient, and discussing with other team members." ASSESSMENT ASSESSMENT Assessment septis shock likely due to gram=/-CAP hyperkalemia JERROD Uncontrolle type 2 DM Anemia of chronic disease Hx of CO s/p CABG [place] CAMPOVERDE RESIDENT Jun 27, 2024 20:42
== END 2024-06-27 17:12 | disposition home health service (06) | DRG 870 ==
LOC: EDUNIT# 04:26 → EDBD 04:26 → ER 04:26 → OVERFLOW 11:13 → TELE 06-18 00:55 → TELE-WESTW 06-20 14:05 → WEST WING 06-25 18:45
PROVIDERS: ADMIT Internal Medicine; ATTEND Emergency Medicine
PROC: 5A1955Z Respiratory Ventilation, Greater than 96 Consecutive Hours (ICD-10-PCS; principal; 2024-06-14)
PROC: 0BH17EZ Insertion of Endotracheal Airway into Trachea, Via Natural or Artificial Opening (ICD-10-PCS; 2024-06-14)
PROC: 06HY33Z Insertion of Infusion Device into Lower Vein, Percutaneous Approach (ICD-10-PCS; 2024-06-14)
DX: A41.50 Gram-negative sepsis, unspecified (principal); E11.10 Type 2 diabetes mellitus with ketoacidosis without coma; R65.21 Severe sepsis with septic shock; J96.01 Acute respiratory failure with hypoxia; J15.69 Pneumonia due to other Gram-negative bacteria; J15.9 Unspecified bacterial pneumonia; G92.8 Other toxic encephalopathy; I50.33 Acute on chronic diastolic (congestive) heart failure; N17.9 Acute kidney failure, unspecified; N39.0 Urinary tract infection, site not specified; Z68.41 Body mass index [BMI] 40.0-44.9, adult; I13.0 Hypertensive heart and chronic kidney disease with heart failure and stage 1 through stage 4 chronic kidney disease, or unspecified chronic kidney disease; E87.5 Hyperkalemia; D63.8 Anemia in other chronic diseases classified elsewhere; Z20.822 Contact with and (suspected) exposure to COVID-19; E03.9 Hypothyroidism, unspecified; N18.32 Chronic kidney disease, stage 3b; E11.319 Type 2 diabetes mellitus with unspecified diabetic retinopathy without macular edema; E11.42 Type 2 diabetes mellitus with diabetic polyneuropathy; E11.51 Type 2 diabetes mellitus with diabetic peripheral angiopathy without gangrene; I25.10 Atherosclerotic heart disease of native coronary artery without angina pectoris; C54.1 Malignant neoplasm of endometrium; E11.22 Type 2 diabetes mellitus with diabetic chronic kidney disease; E66.01 Morbid (severe) obesity due to excess calories; E78.5 Hyperlipidemia, unspecified; Z86.73 Personal history of transient ischemic attack (TIA), and cerebral infarction without residual deficits; Z88.5 Allergy status to narcotic agent; Z90.710 Acquired absence of both cervix and uterus; Z95.1 Presence of aortocoronary bypass graft; Z92.21 Personal history of antineoplastic chemotherapy; Z85.42 Personal history of malignant neoplasm of other parts of uterus; Z79.899 Other long term (current) drug therapy; Z88.8 Allergy status to other drugs, medicaments and biological substances
CPT/HCPCS: 31500; 36415; 36556; 36600; 70450; 71045; 71250; 74176; 80048; 80053; 80202; 80307; 80320; 81001; 82270; 82530; 82570; 82728; 82805; 82962; 83036; 83540; 83550; 83605; 83690; 83735; 83880; 84300; 84443; 84484; 84702; 85025; 85610; 85730; 87040; 87070; 87081; 87086; 87205; 87426; 87804; 92610; 93005; 93306; 93970; 94002; 94003; 96365; 96367; 96368; 97110; 97116; 97163; 97530; 99291; G0378; J0692; J1642; J1756; J1815; J2003; J2185; J2470; J2704; J3480; J7060